=== PATIENT | female | born 1950 | race Caucasian/White ===

== ENCOUNTER → 2017-05-17 | Outpatient (CLI) | payer OTHER, MEDICARE | LOC: BMCIMAGING 07:31 | PROVIDERS: ATTEND Internal Medicine | DX: Z12.31 Encounter for screening mammogram for malignant neoplasm of breast (principal) | CPT/HCPCS: G0202 ==

== ENCOUNTER → 2017-07-13 | Outpatient (CLI) | payer OTHER, MEDICARE | LOC: CIMAGING 11:45 | PROVIDERS: ATTEND Urology | DX: N30.11 Interstitial cystitis (chronic) with hematuria (principal) | CPT/HCPCS: 76770-PO ==

== ENCOUNTER 2017-09-01 11:59 | Emergency (ER) | payer OTHER, MEDICARE ==
--- NOTE | 2017-09-01 12:23 | CPEKG ---
Heart Rate: 99 RR Interval: 606 P-R Interval: 136 QRSD Interval: 134 QT Interval: 368 QTC Interval: 473 P Weir: 67 QRS Weir: -76 T Wave Weir: 59 EKG Severity - ABNORMAL ECG - EKG Impression: SINUS RHYTHM alternating with atrial tachycardia EKG Impression: RBBB AND LAFB EKG Impression: PROBABLE LEFT VENTRICULAR HYPERTROPHY Electronically Signed By: Shona Wilson 01-Sep-2017 20:56:32
[2017-09-01 13:01] LABS: ABSOLUTE IMMATURE GRANULOCYTES 0.08 10^3/uL (0.00-0.10); ADD DIFF? NO; ADD MORPH? NO; ADD SCAN? NO; ATYPICAL LYMPHOCYTE FLAG 0 (0-99); FRAGMENT RBC FLAG 0 (0-99); HEMATOCRIT 43.9 % (38.0-47.0); HEMOGLOBIN 14.8 g/dL (12.6-16.3); LEFT SHIFT FLG 0 (0-99); LIPEMIA HEMOLYSIS FLAG 80 (0-99); MEAN CELL HEMOGLOBIN 32.3 pg (27.9-34.1); MEAN CELL HEMOGLOBIN CONCENTR. 33.7 g/dL (32.4-36.7); MEAN CELL VOLUME 95.9 fL (81.5-99.8); MEAN PLATELET VOLUME 10.2 fL (8.7-11.7); PLATELET CLUMPS FLAG 0 (0-99); PLATELET COUNT 222 10^3/uL (150-400); RED BLOOD CELL COUNT 4.58 10^6/uL (4.18-5.33); RED CELL DISTRIBUTION WIDTH 13.8 % (11.5-15.2)
--- NOTE | 2017-09-01 13:06 | EDPHY ---
H & P Time Seen by Provider: 09/01/17 12:55 HPI/ROS: CHIEF COMPLAINT: Rapid heart rate HISTORY OF PRESENT ILLNESS: The patient is a 66 y/o female with a history of hypothyroidism and depression presents with rapid heart rate. Over the past several months she has been more easily fatigued than normal. Today, while at a routine appointment with Dr. Gallagher, third miller, she had an elevated heart rate. Dr. Gallagher's staff sent her to her primary care provider, Dr. Burns. Dr. Burns noticed the elevated heart rate on a 12 lead EKG. She advised the patient to present to the ED. She denies shortness of breath, chest pain, or other associated symptoms. Her thyroid levels were evaluated recently and were normal. She has been taking Latuda for 6 months to a year and denies any recent changes in medication. REVIEW OF SYSTEMS: Constitutional: No fever, no chills Eyes: No visual changes ENT: No sore throat Respiratory: No cough, no shortness of breath Cardiac: No chest pain Gastrointestinal: no vomiting, no abdominal pain Genitourinary: no dysuria Musculoskeletal: No leg pain or swelling Skin: No rash Neurological: No headache,no weakness Psychiatric: No depression Past Medical/Surgical History: Hypothyroidism, depression Social History: at bedside, retired, lives in [place] Smoking Status: Never smoked Physical Exam: General Appearance: Alert, no distress Eyes: Pupils equal and round, no conjunctival pallor or injection ENT, Mouth: Mucous membranes moist Neck: Normal inspection Respiratory: Lungs are clear to auscultation Cardiovascular: Rate and rhythm fluctuating from 90 bpm to 140 bpm with some possible atrial flutter, no murmur Gastrointestinal: Abdomen is soft and non- tender Neurological: A&O, nonfocal, normal gait Skin: Warm and dry, no rash Extremities: Nontender, no pedal edema Psychiatric: Mood and affect normal Constitutional: Initial Vital Signs Temperature (C) 36.9 C 09/01/17 12:05 Heart Rate 94 09/01/17 12:05 Respiratory Rate 17 09/01/17 12:05 Blood Pressure 139/94 H 09/01/17 12:05 O2 Sat (%) 98 09/01/17 12:05 O2 Delivery Mode Room Air Allergies/Adverse Reactions: adhesive Allergy (Verified 09/01/17 12:00) cephalexin monohydrate [From Keflex] Allergy (Verified 09/01/17 12:00) ciprofloxacin [From Cipro] Allergy (Verified 09/01/17 12:00) ciprofloxacin HCl [From Cipro] Allergy (Verified 09/01/17 12:00) erythromycin lactobionate [From Erythrocin] Allergy (Verified 09/01/17 12:00) lanolin Allergy (Verified 09/01/17 12:00) levofloxacin [From Levaquin] Allergy (Verified 09/01/17 12:00) Penicillins Allergy (Verified 09/01/17 12:00) Sulfa (Sulfonamide Antibiotics) Allergy (Verified 09/01/17 12:00) tetanus immune globulin Allergy (Verified 09/01/17 12:00) Home Medications: Medication Instructions Recorded Aspirin 81mg (*) 09/01/17 Diltiazem HCl [Diltiazem ER] 120 mg PO DAILY #30 cap.er.deg 09/01/17 Divalproex 09/01/17 Estrace 09/01/17 Latuda 09/01/17 Levothyroxine 09/01/17 Losartan Potassium 09/01/17 Metformin HCl 09/01/17 Methylphenidate 09/01/17 Nitrofurantoin 09/01/17 SIMVASTATIN 09/01/17 buPROPion 09/01/17 Medical Decision Making - Diagnostics EKG Interpretation: EKG interpreted by me reveals normal sinus rhythm, rate 80, right bundle branch block, run of atrial tachycardia, rate 120 Imaging Results: Imaging Impressions Chest X-Ray 09/01/17 13:02 Impression: Clear lungs. No edema or acute process. Study: X-ray of the chest Indication: Arrhythmia, tachycardia Results: X-ray of the chest was obtained. The results of the study are: negative for acute processes The study was read by the radiologist, Dr. Folwers. I viewed the images myself on the PACS system. ED Course/Re-evaluation: This patient presents with paroxysmal tachycardia, most likely atrial tachycardia versus atrial flutter. She is asymptomatic and blood pressure is normal. Cardiology consulted. 1348: I spoke with Imani Steele from [facility]. She will consult on this patient. 1412: Cardiology evaluated the patient and decided to decrease the losartan by half to 12.5 mg and begin diltiazem at 120 mg daily. She should follow up with them for further evaluation of the etiology of her arrhythmia. Plan for ECHO/ TMT. Follow-up instructions and return precautions given. Patient agrees to this course of action. Differential Diagnosis: Differential diagnosis includes though it is not limited to pneumonia, pneumothorax, pulmonary embolism, aortic dissection, pericarditis, acute coronary syndrome. - Data Points Laboratory Results: Laboratory Results 09/01/17 12:50 09/01/17 12:50 09/01/17 09/01/17 12:50 12:50 WBC 7.72 10^3/uL 10^3/uL (3.80-9.50) RBC 4.58 10^6/uL 10^6/uL (4.18-5.33) Hgb 14.8 g/dL g/dL (12.6-16.3) Hct 43.9 % % (38.0-47.0) MCV 95.9 fL fL (81.5-99.8) MCH 32.3 pg pg (27.9-34.1) MCHC 33.7 g/dL g/dL (32.4-36.7) RDW 13.8 % % (11.5-15.2) Plt Count 222 10^3/uL 10^3/uL (150-400) MPV 10.2 fL fL (8.7-11.7) Neut % (Auto) 46.8 % % (39.3-74.2) Lymph % (Auto) 43.0 % % (15.0-45.0) [place] % (Auto) 7.8 % % (4.5-13.0) Eos % (Auto) 0.9 % % (0.6-7.6) Baso % (Auto) 0.5 % % (0.3-1.7) Nucleat RBC Rel Count 0.0 % % (0.0-0.2) Absolute Neuts (auto) 3.61 10^3/uL 10^3/uL (1.70-6.50) Absolute Lymphs (auto) 3.32 10^3/uL H 10^3/uL (1.00-3.00) Absolute Monos (auto) 0.60 10^3/uL 10^3/uL (0.30-0.80) Absolute Eos (auto) 0.07 10^3/uL 10^3/uL (0.03-0.40) Absolute Basos (auto) 0.04 10^3/uL 10^3/uL (0.02-0.10) Absolute Nucleated RBC 0.00 10^3/uL 10^3/uL (0-0.01) Immature Gran % 1.0 % % (0.0-1.1) Immature Gran # 0.08 10^3/uL 10^3/uL (0.00-0.10) Sodium 142 mEq/L mEq/L (134-144) Potassium 5.4 mEq/L H mEq/L (3.5-5.2) Chloride 105 mEq/L mEq/L (97-110) Carbon Dioxide 21 mEq/l L mEq/l (22-31) Anion Gap 16 mEq/L mEq/L (8-16) BUN 17 mg/dL mg/dL (7-23) Creatinine 0.9 mg/dL mg/dL (0.6-1.0) Estimated GFR > 60 Glucose 86 mg/dL mg/dL (70-100) Calcium 9.9 mg/dL mg/dL (8.5-10.4) Troponin I < 0.012 ng/mL ng/mL (0.000-0.034) TSH 2.650 uIU/mL uIU/mL (0.465-4.680) Medications Given: Discontinued Medications Sodium Chloride (Ns) 500 mls @ 1,000 mls/hr IV EDNOW ONE PRN Reason: Protocol Stop: 09/01/17 13:46 Last Admin: 09/01/17 14:00 Dose: 500 mls Departure - Departure Disposition: Home, Routine, Self-Care Clinical Impression: Atrial tachycardia Condition: Good Instructions: Atrial Tachycardia (ED) Additional Instructions: 1. Decrease Losartan by half (to 12.5mg daily). Start taking diltiazem as directed. 2. Follow up with Dr. Marshall at [facility] in 1-3 days. 3. Return to the ED for chest pain, shortness of breath, or other worsening of condition. Referrals: Ashley Burns MD [Primary Care Provider] - As per Instructions Susannah Marshall MD [Medical Doctor] - As per Instructions Prescriptions: Diltiazem HCl [Diltiazem ER] 120 mg PO DAILY #30 cap.er.deg Report Scribed for: Shona Wilson Report Scribed by: Neli Stevenson Date of Report: 09/01/17 Time of Report: 13:00 Physician Review and Approval Statement: 09/01/17 13:00 Portions of this note were transcribed by a biomedical equipment specialist. I personally performed a history, physical exam, medical decision making, and confirmed accuracy of information the transcribed note.
[2017-09-01 13:10] LABS: ANION GAP 16 mEq/L (8-16); CALCIUM 9.9 mg/dL (8.5-10.4); CARBON DIOXIDE 21 mEq/l (22-31); CHLORIDE 105 mEq/L (97-110); CREATININE 0.9 mg/dL (0.6-1.0); GLOMERULAR FILTRATION RATE > 60; GLUCOSE 86 mg/dL (70-100); POTASSIUM 5.4 mEq/L (3.5-5.2); SODIUM 142 mEq/L (134-144)
[2017-09-01] MEDS ORDERED: NS 500 ML IV ONE (13:17)
[2017-09-01 13:21] LABS: TROPONIN I < 0.012 ng/mL (0.000-0.034)
[2017-09-01 15:37] VITALS: BP 116/64; PULSE 87; RESP 20; TEMP 97.9; O2SAT 93
--- NOTE | 2017-09-02 01:33 | GCON ---
[f rep st] CONSULTATION CARDIAC CONSULTATION DATE OF CONSULTATION: 09/01/2017 CHIEF COMPLAINT: Fatigue. HISTORY OF PRESENT ILLNESS: The patient is a 66-year-old female with multiple medical problems, who presented to Dr. Zina Gallagher' office today for routine followup visit and was found to be tachycard ic. She was then sent to Dr. Ashley Burns's office, at which time an EKG was done showing tachycar andrew with a heart rate of 120 to 130 beats per minute. The patient was then referred to the emergency room and has been monitored on telemetry. She has had intermittent runs of atrial tachycardia with rates as high as 140 to 150 beats per minute. She is asymptomatic with the tachycardia. She has mul tiple medical illnesses, including lupus obstructive sleep apnea, hypertension, and ongoing depressio n. She has complained of fatigue over the last 6 to 12 months but her medical regimen has been adjus joseph frequently over that time period. She denies any exertional chest discomfort or shortness of remi ath. On occasion she will notice a palpitation in her neck where she feels like her heart rate incre ases, but this is not associated with any other symptoms and is typically fleeting. PAST MEDICAL HISTORY: Lupus, chronic bladder infections, depression, hypertension, diabetes, obstruc tive sleep apnea on CPAP. FAMILY HISTORY: She is adopted but recently was in contact with her mother who mentioned that her meier lf brother of a cardiac event at the age of 46. SOCIAL HISTORY: She denies any tobacco use. She does have chocolate occasionally. She denies any c affeine use. She is currently accompanied by her . REVIEW OF SYSTEMS: Negative except for what is stated in the H and P. PHYSICAL EXAMINATION: GENERAL: Patient appears in no acute distress. VITALS: Blood pressure 139/9 4, heart rate 94, respirations 17, oxygen saturation 98% on room air, afebrile. NECK: No carotid br uits or JVD present. LUNGS: Clear to auscultation. No wheezes, rhonchi, or crackles auscultated. CARDIAC: Regular rate and rhythm without any significant murmurs, rubs, or gallops appreciated. ABD OMEN: Soft, nontender, nondistended. EXTREMITIES: Palpable pulses bilaterally without any evidence of edema. NEUROLOGIC: Nonfocal. PSYCHIATRIC: Mood and affect appropriate. SKIN: No obvious laura hes or ecchymosis identified. LABORATORY: CBC within normal limits. Sodium 142, potassium 5.4, BUN 17, creatinine 0.9, TSH 2.65, troponin negative x1. DIAGNOSTIC STUDIES: Chest x-ray negative for acute cardiopulmonary disease. EKG shows normal sinus rhythm with intermittent atrial tachycardia at a rate of 110. She also has evidence of a right bundl e branch block and left anterior fascicular block. She was monitored on telemetry and is having freq uent runs of atrial tachycardia. ASSESSMENT: The patient is a 66-year-old female who presents to the emergency room with intermittent atrial tachycardia. PLAN: The patient is having intermittent episodes of atrial tachycardia with rates of 140 to 150 chasidy ts per minute. She is asymptomatic with the arrhythmia. She has noted fatigue over the last 6 to 12 months which could be related to her arrhythmia, but she also has multiple other reasons to be fatig ued. We will plan to rate control her with diltiazem 120 mg daily and then check a Holter monitor in 1 week. She will also have an echocardiogram in 1 to 2 weeks to ensure she has a structurally shankar l heart. I have decreased her losartan to reduce her risk of hypotension. She will plan to follow u p in our office post testing. /[id number]/MODL
== END 2017-09-01 15:37 | disposition home or self-care (01) ==
DX: I47.1 Supraventricular tachycardia (principal); E86.9 Volume depletion, unspecified; Z79.82 Long term (current) use of aspirin

== ENCOUNTER → 2017-09-16 | Outpatient (CLI) | payer OTHER, MEDICARE | LOC: BHLMT 11:00 | PROVIDERS: ATTEND Internal Medicine Cardiovascular Disease | DX: R00.0 Tachycardia, unspecified (principal) | CPT/HCPCS: 93225-PO; 93226-PO ==

== ENCOUNTER → 2017-09-20 | Outpatient (CLI) | payer OTHER, MEDICARE | LOC: BHFA 13:15 | PROVIDERS: ATTEND Internal Medicine Cardiovascular Disease | DX: I47.1 Supraventricular tachycardia (principal) ==

== ENCOUNTER → 2017-10-14 | Outpatient (CLI) | payer OTHER, MEDICARE | LOC: BMCIMAGING 09:26 | PROVIDERS: ATTEND Internal Medicine | DX: Z13.820 Encounter for screening for osteoporosis (principal); M85.89 Other specified disorders of bone density and structure, multiple sites ==

== ENCOUNTER 2017-10-20 08:52 | Inpatient (IN) | payer OTHER, MEDICARE ==
--- NOTE | 2017-10-20 13:20 | CPEKG ---
Heart Rate: 84 RR Interval: 714 P-R Interval: 124 QRSD Interval: 96 QT Interval: 400 QTC Interval: 473 P [place]: 60 QRS [place]: -42 T Wave [place]: 52 EKG Severity - BORDERLINE ECG - EKG Impression: SINUS RHYTHM EKG Impression: LEFT AXIS DEVIATION EKG Impression: BORDERLINE T ABNORMALITIES, ANTERIOR LEADS EKG Impression: PRIOR ECG WITH RBBB PATTERN AND SALVOS OF ATRIAL TACHYCARDIA (01-SEP-17) Electronically Signed By: Sebas Abbott 24-Oct-2017 10:50:05
[2017-10-20] MEDS ORDERED: ACETAMINOPHEN 325 MG TAB PO PRN (13:42)
[2017-10-20 14:48] LABS: PLATELET COUNT 215 10^3/uL (150-400)
--- NOTE | 2017-10-20 14:53 | ASMTCASEMG ---
Living Arrangements What is your living Answers: With Spouse arrangement? Who do you live with? Type Of Residence What kind of residence do Answers: House you live in? Discharge Plan Comments Coordination Status Comments Notes: Pt is a 66 y/o female admitted for sotalol loading. Pt will most likely d/c independent when medically stable. No therapies ordered at this time. CM available for changes. Plan: Independent Date Signed: 10/20/2017 02:53 PM Electronically Signed By:CEASAR Forde
[2017-10-20 15:00] LABS: INR 0.91 (0.83-1.16); PROTIME(PATIENT) 12.5 SEC (12.0-15.0)
--- NOTE | 2017-10-20 15:30 | PDCARPN ---
Cardiology Progress Note Chief Complaint: Patient reports ongoing fatigue symptoms.. Assessment/Plan: Assessment: Please see Dr. Neil's this office note dated 10/13/2017 for official Cardiology history and physical. 66-year-old female with significant past history diabetes type 2, hypothyroidism (TSH 2.650 on 09/01/2017), depression, hypertension, KRISTI, hyperlipidemia,hypogammaglobulinemia, chronic urinary tract infection and Atrial flutter. Recent emergency department visit for elevated heart rate, tachycardia , noticed during physical examination. Initially thought of a SVT, but appears to be more of atrial tachycardia. Was started on cartia, and sent home. In our office, she did undergo echocardiogram, noting normal LV size, no LVH, normal LV global systolic function, EF was estimated at 58% , others paradoxical septal most suggesting of a bundle branch block. Grade 1 diastolic dysfunction, normal RV size in , normal RV function , LA and RA are both normal size, RVSP is 25 mm Hg. No significant valvular abnormalities. Patient was seen by Dr. Neil in our office , discuss possible possibility of ablation versus medical therapy. Per patient's request, she would like to attempt to start her on sotalol. The patient reports to me today that she has stopped her carrtia yesterday as requested. She denies of any chest pain or pressure. Reports no significant shortness of breath. She did have a brief run of PSVT on arrival that lasted approximately 30 seconds to a minute , she was asymptomatic. Heart rates did increase up to 150 BPM. She reports she has been in her normal state health. Denies of any chest pressure or pain. Reports no lightheadedness, near-syncope , or syncopal events. Electrocardiogram done on admission showing sinus rhythm , left axis deviation, nonspecific T-wave abnormalities in anterior leads. QTC 473 milliseconds. Plan: 1. PSVT: Appears to have episodes of atrial tachycardia off of previous electrocardiograms. Patient is asymptomatic. QTC within normal limits. Normal electrolyte and renal function. We will plan on starting her on sotalol loading at 120 mg p.o. twice daily. For the 1st 4 doses, due to the potential adverse reactions of this medication, she will get a 2 hour post dosing 12 lead electrocardiogram. She will also remain on continuous cardiac monitoring for the 1st 4 doses. Continue on home dose of aspirin. 2. Hypertension: Blood pressure within normal limits. Continue on home dose of losartan. 3. Hypothyroidism: Most recent TSH within normal limits, continue on home dose of Synthroid. 4. Type 2 diabetes: Blood sugar within normal limits. Continue on home dose of metformin. 5. History of depression: Continue on current home medications of Wellbutrin, Latuda, depakote. 6. Hyperlipidemia: Continue on on statin therapy. 7. Chronic UTI: Continue on home dose of nitrofurantoin 8. KRISTI: Continues home CPAP 8. Code status: Patient is a full code. 9. DVT prophylaxis: Patient is mobile. Not bed bound. Ramin abraham ordered. Encouraged ambulation. 10/20/17 15:28 Subjective: Patient denies of any chest pressure or pain. Reports no palpitations. Denies of any lightheadedness, orthopnea, PND edema, near-syncope, or syncopal events. Reviewed/Discussed With: other (Dr Neil) Objective: Intake/Output (24 Hrs) 10/19/17 10/20/17 10/21/17 05:59 05:59 05:59 Other: Weight 83.1 kg Result Diagrams: 10/20/17 14:40 10/20/17 14:40 - Physical Exam Constitutional: healthy appearing, no apparent distress Ears, Nose, Mouth, Throat: moist mucous membranes Cardiovascular: regular rate and rhythm, no murmurs, no rubs, pulses symmetric bilat, No jugular vein distention Peripheral Pulses: 1+: dorsalis-pedis (R), dorsalis-pedis (L), 2+: carotid (R), carotid (L) Respiratory: clear to auscultate bilat, no crackles, no wheezes Gastrointestinal: normoactive bowel sounds Skin: no rashes, warm, no edema Neurologic: AAOx3 Psychiatric: cooperative, interactive, following commands ICD10 Worksheet Patient Problems: Problems Problem Status Onset PSVT (paroxysmal supraventricular tachycardia) Acute
[2017-10-20] MEDS: DIVALPROEX NA 500 MG TAB PO SCH (16:49)
[2017-10-20] MEDS: PENTOSAN POLYSULFATE SODIUM 200 MG PO SCH (16:50)
[2017-10-20] MEDS: LURASIDONE HCL 40 MG TAB PO SCH (17:47)
[2017-10-20] MEDS: metFORMIN HCL 500 MG TAB PO SCH (17:48)
[2017-10-20] MEDS: NITROFURANTOIN MACROBID 100 MG CAP PO SCH (20:19)
[2017-10-20] MEDS: SOTALOL HCL 80 MG TAB PO SCH (20:19)
[2017-10-20] MEDS ORDERED: ESTRADIOL 42.5 GM CRTUBE VG SCH (21:00)
[2017-10-20] MEDS ORDERED: LURASIDONE HCL 20 MG TAB PO SCH (21:00)
--- NOTE | 2017-10-20 22:26 | CPEKG ---
Heart Rate: 68 RR Interval: 882 P-R Interval: 156 QRSD Interval: 94 QT Interval: 436 QTC Interval: 464 P [place]: 46 QRS [place]: -42 T Wave [place]: -37 EKG Severity - ABNORMAL ECG - EKG Impression: SINUS RHYTHM EKG Impression: LEFT AXIS DEVIATION EKG Impression: NONSPECIFIC T ABNORMALITIES, DIFFUSE LEADS Electronically Signed By: Sebas Abbott 24-Oct-2017 10:50:15
[2017-10-21] MEDS: buPROPion XL 150 MG TAB PO SCH (04:04)
[2017-10-21] MEDS: DIVALPROEX NA 500 MG TAB PO SCH ×4 (04:04→17:43)
[2017-10-21] MEDS: LEVOTHYROXINE 75 MCG TAB PO SCH (04:04)
[2017-10-21 05:01] LABS: INR 0.97 (0.83-1.16); PROTIME(PATIENT) 13.1 SEC (12.0-15.0)
[2017-10-21] MEDS ORDERED: NON-FORMULARY NEW DRUG (Simvastatin [Zocor] 20 MG) PO SCH (07:00)
[2017-10-21] MEDS: LOSARTAN POTASSIUM 25 MG TAB PO SCH (07:53)
[2017-10-21] MEDS: ATORVASTATIN CALCIUM 10 MG TAB PO SCH (07:53)
[2017-10-21] MEDS: ASPIRIN 81 MG CHEWABLE TAB PO SCH (07:53)
[2017-10-21] MEDS: metFORMIN HCL 500 MG TAB PO SCH ×2 (07:53→17:43)
[2017-10-21] MEDS: PENTOSAN POLYSULFATE SODIUM 200 MG PO SCH ×2 (07:55→17:45)
[2017-10-21] MEDS: SOTALOL HCL 80 MG TAB PO SCH ×2 (08:30→20:58)
--- NOTE | 2017-10-21 09:23 | PDCARPN ---
Cardiology Progress Note Chief Complaint: Patient reports she would like to go home as soon as possible. Assessment/Plan: Assessment: 66-year-old female with significant past history diabetes type 2, hypothyroidism (TSH 2.650 on 09/01/2017), depression, hypertension, KRISTI, hyperlipidemia,hypogammaglobulinemia, chronic urinary tract infection and Atrial flutter. Recent emergency department visit for elevated heart rate, tachycardia , noticed during physical examination. Initially thought of a SVT, but appears to be more of atrial tachycardia. Was started on cartia, and sent home. In our office, she did undergo echocardiogram, noting normal LV size, no LVH, normal LV global systolic function, EF was estimated at 58% , others paradoxical septal most suggesting of a bundle branch block. Grade 1 diastolic dysfunction, normal RV size in , normal RV function , LA and RA are both normal size, RVSP is 25 mm Hg. No significant valvular abnormalities. Patient was seen by Dr. Neil in our office , discuss possible possibility of ablation versus medical therapy. Per patient's request, she would like to attempt to start her on sotalol. Today, Patient reports no significant palpitations. Continuous cardiac monitors did show brief episodes of atrial tachycardia. She denies of any lightheadedness, shortness of breath, chest pressure. 12 lead electrocardiogram done last evening, 2 hr post dosing shows sinus rhythm, left axis deviation, nonspecific T-wave abnormalities in diffuse leads. QTC was measured at 464. Today's laboratory study show potassium of 4.6, magnesium 2 Plan: 1. PSVT: Less breakthrough episodes since starting 1st dose of sotalol last evening. Continue on 120 mg p.o. twice daily. QTC within normal limits. Continue on home dose of aspirin. 2. Hypertension: Blood pressure within normal limits. Continue on home dose of losartan. 3. Hypothyroidism: Most recent TSH within normal limits, continue on home dose of Synthroid. 4. Type 2 diabetes: Blood sugar within normal limits. Continue on home dose of metformin. 5. History of depression: Continue on current home medications of Wellbutrin, Latuda, depakote. Who noted 6. Hyperlipidemia: Continue on on statin therapy. 7. Chronic UTI: Continue on home dose of nitrofurantoin 8. KRISTI: Continues home CPAP 8. Code status: Patient is a full code. 9. DVT prophylaxis: Patient is mobile. Not bed bound. Ramin hose ordered. Encouraged ambulation. Due to patient needing to be on continuous campus monitor for 1st 4 doses of sotalol, patient will plan on being here greater than 2 midnight stay. 10/21/17 09:14 Subjective: Patient denies of any chest pressure or pain. Denies of any lightheadedness, palpitations, she shortness of breath, orthopnea, PND. Reviewed/Discussed With: other (Dr Neil) Objective: Vital Signs (8 Hrs) Temp Pulse Resp BP Pulse Ox 10/21/17 08:30 83 122/82 H 10/21/17 07:20 36.7 C 71 14 106/63 95 10/21/17 04:08 91 18 111/66 94 Intake/Output (24 Hrs) 10/20/17 10/21/17 10/22/17 05:59 05:59 05:59 Intake Total 640 Balance 640 Intake: Oral (ml) 640 Other: Weight 83.1 kg Intake Quantity Yes Sufficient Number of Voids Incontinence 1 Toilet 2 Number of Stools Toilet 3 Result Diagrams: 10/20/17 14:40 10/21/17 04:23 - Physical Exam Constitutional: WDWN, healthy appearing Ears, Nose, Mouth, Throat: moist mucous membranes Cardiovascular: regular rate and rhythm, no rubs, no gallops, pulses symmetric bilat, No jugular vein distention Peripheral Pulses: 1+: dorsalis-pedis (R), dorsalis-pedis (L), 2+: carotid (R), carotid (L) Respiratory: clear to auscultate bilat, no crackles, no wheezes Gastrointestinal: normoactive bowel sounds Skin: no edema Neurologic: AAOx3 Psychiatric: cooperative, interactive, following commands ICD10 Worksheet Patient Problems: Problems Problem Status Onset PSVT (paroxysmal supraventricular tachycardia) Acute
--- NOTE | 2017-10-21 10:46 | CPEKG ---
Heart Rate: 91 RR Interval: 659 P-R Interval: 132 QRSD Interval: 96 QT Interval: 376 QTC Interval: 463 P [place]: 52 QRS [place]: -46 T Wave [place]: -44 EKG Severity - ABNORMAL ECG - EKG Impression: SINUS RHYTHM WITH SINUS VERSUS ATRIAL TACHYCARDIA EKG Impression: LEFT ANTERIOR FASCICULAR BLOCK EKG Impression: NONSPECIFIC T ABNORMALITIES, DIFFUSE LEADS EKG Impression: RBBB PATTERN Electronically Signed By: Sebas Abbott 24-Oct-2017 10:51:26
[2017-10-21] MEDS: LURASIDONE HCL 40 MG TAB PO SCH (17:43)
[2017-10-21] MEDS: NITROFURANTOIN MACROBID 100 MG CAP PO SCH (20:59)
--- NOTE | 2017-10-22 00:02 | CPEKG ---
Heart Rate: 64 RR Interval: 938 P-R Interval: 156 QRSD Interval: 90 QT Interval: 444 QTC Interval: 458 P [place]: 47 QRS [place]: -39 T Wave [place]: -51 EKG Severity - ABNORMAL ECG - EKG Impression: SINUS RHYTHM EKG Impression: LEFT AXIS DEVIATION EKG Impression: NONSPECIFIC T ABNORMALITIES, DIFFUSE LEADS EKG Impression: RBBB PATTERN ABSENT IN THIS ECG Electronically Signed By: Sebas Abbott 24-Oct-2017 10:51:45
[2017-10-22] MEDS: LEVOTHYROXINE 75 MCG TAB PO SCH (05:45)
[2017-10-22] MEDS: buPROPion XL 150 MG TAB PO SCH (05:46)
[2017-10-22] MEDS: DIVALPROEX NA 500 MG TAB PO SCH ×3 (05:46→12:28)
[2017-10-22 07:08] VITALS: BP 124/64; RESP 18; TEMP 98.1; O2SAT 95
[2017-10-22] MEDS: LOSARTAN POTASSIUM 25 MG TAB PO SCH (09:06)
[2017-10-22] MEDS: SOTALOL HCL 80 MG TAB PO SCH (09:06)
[2017-10-22] MEDS: ASPIRIN 81 MG CHEWABLE TAB PO SCH (09:07)
[2017-10-22] MEDS: metFORMIN HCL 500 MG TAB PO SCH (09:08)
[2017-10-22] MEDS: PENTOSAN POLYSULFATE SODIUM 200 MG PO SCH (09:08)
[2017-10-22] MEDS: ATORVASTATIN CALCIUM 10 MG TAB PO SCH (09:08)
[2017-10-22 09:10] VITALS: PULSE 97
--- NOTE | 2017-10-22 11:19 | CPEKG ---
Heart Rate: 86 RR Interval: 698 P-R Interval: 124 QRSD Interval: 100 QT Interval: 376 QTC Interval: 450 P [place]: 53 QRS [place]: -46 T Wave [place]: -73 EKG Severity - ABNORMAL ECG - EKG Impression: SINUS RHYTHM EKG Impression: PAIRED VENTRICULAR PREMATURE COMPLEXES EKG Impression: LAD, CONSIDER LEFT ANTERIOR FASCICULAR BLOCK EKG Impression: NONSPECIFIC T ABNORMALITIES, DIFFUSE LEADS EKG Impression: INCOMPLETE RBBB PATTERN Electronically Signed By: Sebas Abbott 24-Oct-2017 10:52:15
--- NOTE | 2017-10-22 14:31 | ASDISCHSUM ---
Discharge Information Plan Status:Home with No Needs Medically Cleared to Leave:10/21/2017 Discharge Date:10/22/2017 12:57 PM CM D/C Disposition: ADT D/C Disposition:Home, Routine, Self-Care Projected Discharge Date:10/22/2017 12:00 AM Transportation at D/C: Discharge Delay Reason: Follow-Up Date:10/22/2017 12:00 AM Discharge Slot: Final Diagnosis: Placement Information Patient Contact Information Contact Name:JUANA Relationship: Address:[address] [place] Alternate Phone: [facility]/Zip Code:[place] [address] Email: Financial Information Financial Class: Primary Plan Desc:MEDICARE INPATIENT Primary Plan Number:[id number] Secondary Plan Desc:FRANCISCOP/MDR SUPPLEMENT Secondary Plan Number:[id number] Assessment Information [facility] Initial CM Assessment Living Arrangements What is your living Answers: With Spouse arrangement? Who do you live with? Type Of Residence What kind of residence do Answers: House you live in? Discharge Plan Comments Coordination Status Comments Notes: Pt is a 66 y/o female admitted for sotalol loading. Pt will most likely d/c independent when medically stable. No therapies ordered at this time. CM available for changes. Plan: Independent Date Signed: 10/20/2017 02:53 PM Electronically Signed By:CEASAR Forde Intervention Information Intervention Type:*Incorrect Registration Date of Service:10/20/2017 02:32 PM Patient Type:Observation Staff Member:KAYCEE Magallon Courtney Hours: Discipline: Severity: Comment:
--- NOTE | 2017-10-22 18:07 | GDS ---
[f rep st] DISCHARGE SUMMARY ADMISSION DIAGNOSES: 1. Paroxysmal supraventricular tachycardia that appears to be potentially atrial tachycardia. 2. Diabetes type 2. 3. Hypothyroidism. 4. Depression. 5. Hypertension. 6. Obstructive sleep apnea. 7. Hyperlipidemia. 8. Hypogammaglobulinemia. 9. Chronic urinary tract infection. DISCHARGE DIAGNOSES: 1. Paroxysmal supraventricular tachycardia that appears to be potentially atrial tachycardia. 2. Diabetes type 2. 3. Hypothyroidism. 4. Depression. 5. Hypertension. 6. Obstructive sleep apnea. 7. Hyperlipidemia. 8. Hypogammaglobulinemia. 9. Chronic urinary tract infection. PROCEDURES PERFORMED DURING HOSPITALIZATION: 1. Electrocardiogram. 2. Laboratory studies. BRIEF HISTORY: Please see H and P. The patient is a 66-year-old female, she has had a recent emerge ncy department visit for elevated heart rate, tachycardia, noted during her physical examination. In itially thought SVT but, but appeared to be more atrial tachycardia. She was seen by Dr. Neil, who d iscussed potentials of ablation versus medical therapy. Per patient's request, she requested to star t medical therapy which included being placed on sotalol. She was admitted to the hospital. HOSPITAL COURSE: Patient was admitted to PCU, to be placed on continuous cardiac monitoring. For he r first 4 doses of sotalol, she did have post-dosing electrocardiograms, assuring no prolonged QTc. She has been stable throughout her hospitalization. It has been noted that she has had occasional ep isodes of SVT, especially on her 1st day of admission, which have decreased in frequency since then. She has had no chest pain, shortness of breath, lightheadedness. She has been up and walking in the unit without any difficulties. Her 2-hour post dosing EKGs have all shown QTc within normal limits. No other malignant arrhythmias or pauses have been noted. PHYSICAL EXAMINATION ON DAY OF DISCHARGE: GENERAL APPEARANCE: Medium built, elderly female, she is alert and oriented to person, place, time, situation. Appears to be under no acute distress. CURREN T VITAL SIGNS: 124/64, heart rate is 97 in sinus rhythm on the monitor, respirations 18, saturating 95% on room air. Temperature of 36.7 degrees Celsius. HEENT: Head is normocephalic. Lips and tong ue are pink and moist with no signs of cyanosis. Conjunctivae pink. NECK: Trachea is midline, +2 c arotid pulses bilateral. No auscultated bruits, no jugular vein distention. LUNGS: Clear to auscul tation. No rhonchi, rales or wheezes. No accessory muscle use. No intercostal muscle retraction no joseph. CARDIAC: Regular rate, regular rhythm, S1, S2. No S3, S4, gallops, rubs or murmur noted. ABD OMEN: Soft, nontender, bowel sounds x4 quadrants. No organomegaly. No palpable masses. SKIN: Pin k, warm, dry, no cyanosis, no clubbing, no peripheral edema. VASCULAR: +2 carotids, +2 radials bila teral, +1 posterior tibial pulses bilateral. LABORATORY STUDIES: Laboratory studies drawn today show a sodium of 142, potassium 4.6, chloride 105 , BUN 15, creatinine 0.8, glucose 89, calcium 9.3, magnesium 1.9. STUDIES: Most recent electrocardiogram shows sinus rhythm. Left axis deviation, potentially left an terior fascicular block, nonspecific T-wave abnormalities. QTc was measured at 450 msec. DISCHARGE DISPOSITION: Patient will be discharged home in stable condition. ACTIVITY RESTRICTIONS: She is under no activity restrictions. DISCHARGE MEDICATIONS: Please see discharge medication reconciliation sheet. Note, patient will con tinue all home medications except her Cardizem, which she had been on prior to admission. In replace ment, she has been started on sotalol 120 mg p.o. twice daily. DISCHARGE INSTRUCTIONS: Post sotalol loading/post sotalol discharge instructions went over with the patient. Potential side effects and adverse reactions to medication explained. She verbalized under standing. The patient has a followup appointment next week at our [place] office for repeated elect rocardiogram. Patient will follow up with Dr. Neil in 2 months' time. At the time of discharge, janice oliva verbalizes understanding of all instructions and has no questions or concerns. She has been fallon d that any problems or concerns come up post discharge, she is to call our office or return to the [facility]. Total time spent on discharge: Greater than 30 minutes. /[id number]/MODL
== END 2017-10-22 12:57 | disposition home or self-care (01) | DRG 309 ==
LOC: F2W 12:39 → OBSVTOIN 13:42
PROVIDERS: ADMIT Internal Medicine Cardiovascular Disease; ATTEND Internal Medicine Cardiovascular Disease
DX: I47.1 Supraventricular tachycardia (principal); E11.9 Type 2 diabetes mellitus without complications; G47.33 Obstructive sleep apnea (adult) (pediatric); E03.9 Hypothyroidism, unspecified; D80.1 Nonfamilial hypogammaglobulinemia; E78.5 Hyperlipidemia, unspecified; I10 Essential (primary) hypertension; N39.0 Urinary tract infection, site not specified; F32.9 Major depressive disorder, single episode, unspecified

== ENCOUNTER → 2018-06-23 | Outpatient (CLI) | payer OTHER, MEDICARE | LOC: BMCIMAGING 07:50 | PROVIDERS: ATTEND Allergy & Immunology Allergy | DX: Z12.31 Encounter for screening mammogram for malignant neoplasm of breast (principal); K76.9 Liver disease, unspecified ==

== ENCOUNTER → 2018-07-06 | Outpatient (CLI) | payer OTHER, MEDICARE | LOC: BMCIMAGING 10:50 | PROVIDERS: ATTEND Internal Medicine | DX: R92.8 Other abnormal and inconclusive findings on diagnostic imaging of breast (principal) ==

== ENCOUNTER → 2018-07-07 | Outpatient (CLI) | payer OTHER, MEDICARE | LOC: BMCIMAGING 10:46 | PROVIDERS: ATTEND Internal Medicine | DX: R92.8 Other abnormal and inconclusive findings on diagnostic imaging of breast (principal) ==

== ENCOUNTER → 2018-09-06 | Outpatient (CLI) | payer OTHER, MEDICARE | LOC: BHLMT 09:00 | PROVIDERS: ATTEND Internal Medicine Cardiovascular Disease | DX: I47.1 Supraventricular tachycardia (principal) | CPT/HCPCS: 93225-PO; 93226-PO ==

== ENCOUNTER → 2018-09-22 | Outpatient (CLI) | payer OTHER, MEDICARE | LOC: BMCIMAGING 12:00 | PROVIDERS: ATTEND Allergy & Immunology Allergy | DX: R06.02 Shortness of breath (principal) ==

== ENCOUNTER → 2018-09-23 | Outpatient (CLI) | payer OTHER, MEDICARE | LOC: BHFA 09:00 | PROVIDERS: ATTEND Internal Medicine Cardiovascular Disease | DX: R06.09 Other forms of dyspnea (principal); I47.1 Supraventricular tachycardia; I51.9 Heart disease, unspecified | CPT/HCPCS: 78452; 93017; A9500; J2785 ==

== ENCOUNTER 2018-09-24 03:47 | Emergency (ER) | payer OTHER, MEDICARE ==
[2018-09-24] MEDS ORDERED: NS 1,000 ML IV ONE (04:41)
--- NOTE | 2018-09-24 04:45 | EDPHY ---
H & P Stated Complaint: L SIDE ABD PAIN STARTED MN Time Seen by Provider: 09/24/18 03:53 HPI/ROS: HPI The patient presents with left-sided abdominal pain which awoke her at midnight tonight when she was lying on her right side. She feels that the pain is positional and worse when she lies on her stomach. It is moderate in severity and has been persistent for the last several hours and this is what brings her into the emergency department. She reports that she was diagnosed with cystitis around and she took a course of doxycycline (she has many antibiotic allergies) prescribed by her urologist. As she was completing the course of this antibiotic she developed stomach upset and had diminished appetite and has not been able to eat much. She reports since she has had a 30 lb weight loss and generally is not hungry much of the time. She also is being evaluated for shortness of breath. She was initially diagnosed with an atrial tachycardia. She had a nuclear stress test performed yesterday. She is being followed by [facility].. REVIEW OF SYSTEMS 10 systems were reviewed and negative with the exception of the elements mentioned in the history of present illness. PMHx: Fibromyalgia, frequent urinary tract infections, type 2 diabetes Soc Hx: Here with her PHYSICAL General Appearance: Alert, no distress Eyes: Pupils equal and round no pallor or injection ENT, Mouth: Mucous membranes moist Respiratory: There are no retractions, lungs are clear to auscultation Cardiovascular: Regular rate and rhythm Gastrointestinal: Abdomen is soft and tender in her left upper quadrant, no masses, bowel sounds normal Neurological: A&O, moves all extremities Skin: Warm and dry, no rashes Musculoskeletal: Neck is supple non tender Extremities: symmetrical, full range of motion Psychiatric: Patient is oriented X 3, there is no agitation Source: Patient, Old records Exam Limitations: No limitations - Personal History Current Tetanus Diphtheria and Acellular Pertussis (TDAP): Yes - Medical/Surgical History Hx Asthma: No Hx Chronic Respiratory Disease: No Hx Diabetes: Yes Hx Cardiac Disease: No Hx Renal Disease: No Hx Cirrhosis: No Hx Alcoholism: No Hx HIV/AIDS: No Hx Splenectomy or Spleen Trauma: No Other PMH: Fx right leg April 04, Diabetic, depression bi-polar, fibromylagia, CHEESH-NA, sleep apnea, urinary incontinece, chronic bladder infection - Social History Smoking Status: Never smoked Constitutional: Initial Vital Signs Heart Rate 74 09/24/18 03:57 Respiratory Rate 16 09/24/18 03:57 Blood Pressure 122/72 H 09/24/18 03:57 O2 Sat (%) 97 09/24/18 03:57 O2 Delivery Mode Room Air Allergies/Adverse Reactions: adhesive Allergy (Verified 09/01/17 12:00) cephalexin monohydrate [From Keflex] Allergy (Verified 09/01/17 12:00) ciprofloxacin [From Cipro] Allergy (Verified 09/01/17 12:00) ciprofloxacin HCl [From Cipro] Allergy (Verified 09/01/17 12:00) erythromycin lactobionate [From Erythrocin] Allergy (Verified 09/01/17 12:00) lanolin Allergy (Verified 09/01/17 12:00) levofloxacin [From Levaquin] Allergy (Verified 09/01/17 12:00) Penicillins Allergy (Verified 09/01/17 12:00) Sulfa (Sulfonamide Antibiotics) Allergy (Verified 09/01/17 12:00) tetanus immune globulin Allergy (Verified 09/01/17 12:00) Home Medications: Medication Instructions Recorded Aspirin [Aspirin 81mg (*)] 81 mg PO DAILY@07 09/01/17 Divalproex [Depakote] 500 mg PO QID@04,08,12,16 09/01/17 Levothyroxine [Synthroid 75 mcg 75 mcg PO DAILY@04 09/01/17 (*)] Lurasidone HCl [Latuda] 60 mg PO HS 09/01/17 Methylphenidate HCl [Ritalin 20mg 20 mg PO QID@04,08,12,16 09/01/17 (*)] buPROPion XL [Wellbutrin 150mg XL] 450 mg PO DAILY@04 09/01/17 metFORMIN HCL [Glucophage 500 mg 500 mg PO BIDMEAL 09/01/17 (*)] EPINEPHrine [Epipen 0.3 MG] 0.3 mg IM ONCE PRN 10/20/17 Herbals/Supplements -Info Only 1 ea PO DAILY 10/20/17 Immune Globul G/Gly/Iga Avg 46 10 gm IV Q30D 10/20/17 [Gamunex-C 10 Gram/100 ml Vial] Cephalexin [Keflex (*)] 500 mg PO TID #21 cap 09/24/18 Medical Decision Making - Diagnostics Imaging Results: CT abdomen pelvis without contrast demonstrates possible right-sided pyelonephritis, discussed with Dr. Vieira of Radiology. Imaging: Discussed imaging studies w/ callisthenics instructor Radiologist Differential Diagnosis: 67-year-old female with fibromyalgia, diabetes, history of atrial tachycardia who presents from home with left-sided abdominal pain when she awoke from sleep at midnight. This is in the setting of a 30 lb weight loss over the last 1 month with anorexia. She also is being evaluated for shortness of breath by [facility] and has multiple recent test performed. I was able to review her labs from 2 days ago and it appears that she has a pre renal azotemia which could be related to her anorexia. Plan for IV fluids, basic labs, CT scan of her abdomen pelvis. Differential diagnosis includes pancreatitis, diverticulitis, malignancy. In the emergency department, patient's pain improved. Labs were checked and did reveal signs of urinary tract infection. BUN and creatinine are elevated once again, same is 2 days ago, likely suggesting pre renal azotemia. She was given a L of fluid. CT scan was performed and showed possible right-sided pyelonephritis. This in the setting of the patient's UA suggestive of infection makes me feel inclined to treat though patient's pain is not typical for pyelonephritis. As patient has multiple medication allergies, including penicillin. I will give her a dose of ceftriaxone here as she does not have an allergy to this and I will observe her for any reaction. If she tolerates this, then I will start her on Keflex for UTI. I did explain to her that it is very important that she have her BUN and creatinine rechecked in the next few days. She says that she is able to do this. I have encouraged her to drink plenty of fluids. I would like for her to follow up with her primary care doctor shortly. - Data Points Laboratory Results: Laboratory Results 09/24/18 05:15 09/24/18 05:15 09/24/18 09/24/18 09/24/18 05:15 05:15 04:55 WBC 11.77 10^3/uL H 10^3/uL (3.80-9.50) RBC 3.96 10^6/uL L 10^6/uL (4.18-5.33) Hgb 12.0 g/dL L g/dL (12.6-16.3) Hct 37.1 % L % (38.0-47.0) MCV 93.7 fL fL (81.5-99.8) MCH 30.3 pg pg (27.9-34.1) MCHC 32.3 g/dL L g/dL (32.4-36.7) RDW 13.4 % % (11.5-15.2) Plt Count 282 10^3/uL 10^3/uL (150-400) MPV 9.3 fL fL (8.7-11.7) Neut % (Auto) 65.8 % % (39.3-74.2) Lymph % (Auto) 17.2 % % (15.0-45.0) [place] % (Auto) 14.6 % H % (4.5-13.0) Eos % (Auto) 0.2 % L % (0.6-7.6) Baso % (Auto) 0.3 % % (0.3-1.7) Nucleat RBC Rel Count 0.0 % % (0.0-0.2) Absolute Neuts (auto) 7.74 10^3/uL H 10^3/uL (1.70-6.50) Absolute Lymphs (auto) 2.02 10^3/uL 10^3/uL (1.00-3.00) Absolute Monos (auto) 1.72 10^3/uL H 10^3/uL (0.30-0.80) Absolute Eos (auto) 0.02 10^3/uL L 10^3/uL (0.03-0.40) Absolute Basos (auto) 0.04 10^3/uL 10^3/uL (0.02-0.10) Absolute Nucleated RBC 0.00 10^3/uL 10^3/uL (0-0.01) Immature Gran % 1.9 % H % (0.0-1.1) Immature Gran # 0.22 10^3/uL H 10^3/uL (0.00-0.10) RBC/WBC/PLT Morphology TNP Platelet Estimate TNP Sodium 140 mEq/L mEq/L (135-145) Potassium 4.5 mEq/L mEq/L (3.5-5.2) Chloride 110 mEq/L mEq/L (97-110) Carbon Dioxide 18 mEq/l L mEq/l (22-31) Anion Gap 12 mEq/L mEq/L (6-14) BUN 33 mg/dL H mg/dL (7-23) Creatinine 1.8 mg/dL H mg/dL (0.6-1.0) Estimated GFR 28 Glucose 132 mg/dL H mg/dL (70-100) Calcium 9.0 mg/dL mg/dL (8.5-10.4) Total Bilirubin 0.6 mg/dL mg/dL (0.1-1.4) Conjugated Bilirubin 0.4 mg/dL mg/dL (0.0-0.5) Unconjugated Bilirubin 0.2 mg/dL mg/dL (0.0-1.1) AST 21 IU/L IU/L (14-46) ALT 19 IU/L IU/L (9-52) Alkaline Phosphatase 96 IU/L IU/L (38-126) Total Protein 6.1 g/dL L g/dL (6.3-8.2) Albumin 3.1 g/dL L g/dL (3.5-5.0) Lipase 67 IU/L IU/L (23-300) Urine Color YELLOW Urine Appearance MODERATELY TURBID Urine pH 6.0 (5.0-7.5) Ur Specific [place] 1.009 (1.002-1.030) Urine Protein NEGATIVE (NEGATIVE) Urine Ketones NEGATIVE (NEGATIVE) Urine Blood NEGATIVE (NEGATIVE) Urine Nitrate NEGATIVE (NEGATIVE) Urine Bilirubin NEGATIVE (NEGATIVE) Urine Urobilinogen NEGATIVE EU EU (0.2-1.0) Ur Leukocyte Esterase 3+ H (NEGATIVE) Urine RBC 5-10 /hpf H /hpf (0-3) Urine WBC 50-182 /hpf H /hpf (0-3) Ur Epithelial Cells TRACE /lpf /lpf (NONE-1+) Urine Bacteria 1+ /hpf H /hpf (NONE SEEN) Urine Mucus TRACE /lpf /lpf (NONE-1+) Urine Glucose NEGATIVE (NEGATIVE) Medications Given: Ceftriaxone Sodium/Dextrose (Rocephin 1 Gm (Premix)) 50 mls @ 100 mls/hr IV EDNOW ONE PRN Reason: Protocol Stop: 09/24/18 07:18 Last Admin: 12/22/18 06:56 Dose: 50 mls Discontinued Medications Sodium Chloride (Ns) 1,000 mls @ 0 mls/hr IV EDNOW ONE; Wide Open PRN Reason: Protocol Stop: 09/24/18 04:42 Last Admin: 09/24/18 05:14 Dose: 1,000 mls Departure - Departure Disposition: Home, Routine, Self-Care Clinical Impression: Acute pyelonephritis, Acute renal insufficiency Condition: Good Instructions: Kidney Infection (ED) Additional Instructions: Your testing today shows that you have a right-sided kidney infection. We have sent a urine culture and if you're not on the correct antibiotic, we will call you. Your kidney function also is diminished, this could be related to dehydration. You must have your creatinine read checked in the next few days. You should call your primary care doctor to arrange for this. Return to the emergency department if your worse in any way. Referrals: Ashley Burns MD [Primary Care Provider] - As per Instructions Prescriptions: Cephalexin [Keflex (*)] 500 mg PO TID #21 cap
[2018-09-24 05:28] LABS: PLATELET COUNT 282 10^3/uL (150-400)
[2018-09-24 07:37] VITALS: BP 108/64
== END 2018-09-24 07:50 | disposition home or self-care (01) ==
DX: N12 Tubulo-interstitial nephritis, not specified as acute or chronic (principal); N28.9 Disorder of kidney and ureter, unspecified; E86.9 Volume depletion, unspecified
CPT/HCPCS: 74176; 96361; 96365; 99285; J0696

== ENCOUNTER 2018-09-25 19:50 | Emergency (ER) | payer OTHER, MEDICARE ==
--- NOTE | 2018-09-25 20:00 | EDPHY ---
H & P Time Seen by Provider: 09/25/18 19:59 HPI/ROS: CHIEF COMPLAINT: Right-sided abdominal pain HISTORY OF PRESENT ILLNESS: Patient is a 67-year-old female here with continued right-sided abdominal pain starting Wednesday evening. She states that in the middle of the night Wednesday she started with sharp sided right abdominal pain. She points to the right periumbilical region and flank as source of her pain. She denies any fever chills or dysuria. She is status post hysterectomy , cholecystectomy and appendectomy. She was seen yesterday he for her pain and had complete blood work and CT scan performed. CT scan showed perinephric stranding suggestive of pyelonephritis and urinalysis showed large leukocytes. She was started on Keflex after being given 1 dose of Rocephin. She tolerated this well with no signs of allergic reaction. She was prescribed Keflex originally but then was switched to cefdinir 300 mg twice a day. She has had 2 cefdinir so far. She reports no improvement of her pain. She is trying Tylenol without relief. She also reports that since [place] she has had decreased appetite and unintentional 20 lb weight loss. States she is being treated for a urinary tract infection with doxycycline and near the end of the 10 day course she developed abdominal discomfort has had decreased appetite since. She has no history of cancer has noticed no changes in her stools including no black tarry stools or any change in caliber of her stools. She had a regular bowel movement yesterday and today. REVIEW OF SYSTEMS: Constitutional: No fever, no chills. Eyes: No discharge. ENT: No sore throat. Cardiovascular: No chest pain, no palpitations. Respiratory: No cough, no shortness of breath. Gastrointestinal: + abdominal pain, no vomiting. Genitourinary: No hematuria. Musculoskeletal: No back pain. Skin: No rashes. Neurological: No headache. Smoking Status: Never smoked Physical Exam: General Appearance: Alert and no distress. ENT: normal dentition. No tonsillar exudate or swelling. Eyes: Pupils equal and round no injection. Respiratory: Chest is nontender, lungs are clear to auscultation. Cardiac: regular rate and rhythm. No lower extremity edema Gastrointestinal: Abdomen is soft and tender to the right periumbilical region and mild tenderness the right CVA. No peritoneal signs. no masses, bowel sounds normal. Musculoskeletal: Neck is supple and nontender. Extremities have full range of motion and are nontender without deformity Skin: No rashes or lesions. Neuro: Cranial nerves grossly intact. No nystagmus. Normal [id number] testing. Ambulatory. Constitutional: Initial Vital Signs Temperature (C) 36.3 C 09/25/18 19:54 Heart Rate 71 09/25/18 19:54 Respiratory Rate 18 09/25/18 19:54 Blood Pressure 128/82 H 09/25/18 19:54 O2 Sat (%) 99 09/25/18 19:54 O2 Delivery Mode Room Air Allergies/Adverse Reactions: adhesive Allergy (Verified 09/25/18 19:57) cephalexin monohydrate [From Keflex] Allergy (Verified 09/25/18 19:57) ciprofloxacin [From Cipro] Allergy (Verified 09/25/18 19:57) ciprofloxacin HCl [From Cipro] Allergy (Verified 09/25/18 19:57) erythromycin lactobionate [From Erythrocin] Allergy (Verified 09/25/18 19:57) lanolin Allergy (Verified 09/25/18 19:57) levofloxacin [From Levaquin] Allergy (Verified 09/25/18 19:57) Penicillins Allergy (Verified 09/25/18 19:57) Sulfa (Sulfonamide Antibiotics) Allergy (Verified 09/25/18 19:57) tetanus immune globulin Allergy (Verified 09/25/18 19:57) Home Medications: Medication Instructions Recorded Aspirin [Aspirin 81mg (*)] 81 mg PO DAILY@07 09/01/17 Divalproex [Depakote] 500 mg PO QID@,,,09/01/17 Levothyroxine [Synthroid 75 mcg 75 mcg PO DAILY@09/01/17 (*)] Lurasidone HCl [Latuda] 60 mg PO HS 09/01/17 Methylphenidate HCl [Ritalin 20mg 20 mg PO QID@04,,12,09/01/17 (*)] buPROPion XL [Wellbutrin 150mg XL] 450 mg PO DAILY@09/01/17 metFORMIN HCL [Glucophage 500 mg 500 mg PO BIDMEAL 09/01/17 (*)] EPINEPHrine [Epipen 0.3 MG] 0.3 mg IM ONCE PRN 10/20/17 Herbals/Supplements -Info Only 1 ea PO DAILY 10/20/17 Immune Globul G/Gly/Iga Avg 46 10 gm IV Q30D 10/20/17 [Gamunex-C 10 Gram/100 ml Vial] Cephalexin [Keflex (*)] 500 mg PO TID #21 cap 09/24/18 Tramadol HCl 50 mg PO Q6 PRN #16 tablet 09/25/18 Medical Decision Making ED Course/Re-evaluation: 67-year-old female he developed pain for the last 2 days. She is today and had blood work CT which suggest Tylenol for itis some pain. Is 1 dose of IV Rocephin started on Keflex. Ultimately she switched to cefdinir and has had 2 doses of 300 mg to cefdinir and had no improvement of her pain. She is only taking Tylenol for pain. In the emergency room she had right periumbilical pain and right CVA tenderness exam vital signs is afebrile nontoxic appearing. CBC, CMP and least for repeat which showed no change. She was given 1 L IV fluids and tramadol of 100 for her pain and feels improved. I did offer her admission but she would like to try going home and continue cefdinir twice daily. She agrees to close follow-up with her primary care physician to recheck kidney function. Additionally she agrees to follow up here if she worsens anyway. Differential Diagnosis: Pancreatitis, colitis, nephritis, gastric ulcer, constipation - Data Points Laboratory Results: Laboratory Results 09/25/18 20:40 09/25/18 20:40 09/25/18 09/25/18 20:40 20:40 WBC 11.97 10^3/uL H 10^3/uL (3.80-9.50) RBC 3.53 10^6/uL L 10^6/uL (4.18-5.33) Hgb 11.0 g/dL L g/dL (12.6-16.3) Hct 34.2 % L % (38.0-47.0) MCV 96.9 fL fL (81.5-99.8) MCH 31.2 pg pg (27.9-34.1) MCHC 32.2 g/dL L g/dL (32.4-36.7) RDW 13.5 % % (11.5-15.2) Plt Count 290 10^3/uL 10^3/uL (150-400) MPV 9.2 fL fL (8.7-11.7) Neut % (Auto) 65.4 % % (39.3-74.2) Lymph % (Auto) 20.6 % % (15.0-45.0) [place] % (Auto) 10.9 % % (4.5-13.0) Eos % (Auto) 0.3 % L % (0.6-7.6) Baso % (Auto) 0.4 % % (0.3-1.7) Nucleat RBC Rel Count 0.0 % % (0.0-0.2) Absolute Neuts (auto) 7.83 10^3/uL H 10^3/uL (1.70-6.50) Absolute Lymphs (auto) 2.46 10^3/uL 10^3/uL (1.00-3.00) Absolute Monos (auto) 1.30 10^3/uL H 10^3/uL (0.30-0.80) Absolute Eos (auto) 0.04 10^3/uL 10^3/uL (0.03-0.40) Absolute Basos (auto) 0.05 10^3/uL 10^3/uL (0.02-0.10) Absolute Nucleated RBC 0.00 10^3/uL 10^3/uL (0-0.01) Immature Gran % 2.4 % H % (0.0-1.1) Immature Gran # 0.29 10^3/uL H 10^3/uL (0.00-0.10) Sodium 138 mEq/L mEq/L (135-145) Potassium 4.2 mEq/L mEq/L (3.5-5.2) Chloride 113 mEq/L H mEq/L (97-110) Carbon Dioxide 15 mEq/l L mEq/l (22-31) Anion Gap 10 mEq/L mEq/L (6-14) BUN 33 mg/dL H mg/dL (7-23) Creatinine 1.7 mg/dL H mg/dL (0.6-1.0) Estimated GFR 30 Glucose 108 mg/dL H mg/dL (70-100) Calcium 8.6 mg/dL mg/dL (8.5-10.4) Total Bilirubin 0.5 mg/dL mg/dL (0.1-1.4) Conjugated Bilirubin 0.5 mg/dL mg/dL (0.0-0.5) Unconjugated Bilirubin 0.0 mg/dL mg/dL (0.0-1.1) AST 24 IU/L IU/L (14-46) ALT 20 IU/L IU/L (9-52) Alkaline Phosphatase 84 IU/L IU/L (38-126) Total Protein 6.0 g/dL L g/dL (6.3-8.2) Albumin 2.9 g/dL L g/dL (3.5-5.0) Lipase 71 IU/L IU/L (23-300) Medications Given: Discontinued Medications Sodium Chloride (Ns) 1,000 mls @ 0 mls/hr IV EDNOW ONE; Wide Open PRN Reason: Protocol Stop: 09/25/18 21:12 Last Admin: 09/25/18 21:18 Dose: 1,000 mls Tramadol HCl (Ultram) 50 mg PO ONCE ONE Stop: 09/25/18 21:45 Last Admin: 09/25/18 21:51 Dose: 50 mg Departure - Departure Clinical Impression: Acute pyelonephritis, Abdominal pain Condition: Good Instructions: Kidney Infection (ED) Additional Instructions: Please return to the ER if pain is not improving or worsening or for any other worrisome symptoms. Take tramadol as needed for pain in addition to Tylenol. For pain is improving over the next couple days please sure to follow up with her primary care physician discussion kidney function and for re-evaluation your abdominal pain and kidney infection. Referrals: Ashley Burns MD [Primary Care Provider] - As per Instructions Prescriptions: Tramadol HCl 50 mg PO Q6 PRN #16 tablet PRN Reason: Pain, Breakthrough
[2018-09-25 20:47] LABS: PLATELET COUNT 290 10^3/uL (150-400)
[2018-09-25] MEDS ORDERED: NS 1,000 ML IV ONE (21:11)
[2018-09-25] MEDS ORDERED: traMADol 50 MG TAB PO ONE (21:44)
[2018-09-25 22:30] VITALS: BP 135/83
== END 2018-09-25 22:29 | disposition home or self-care (01) ==
DX: N10 Acute pyelonephritis (principal); E86.9 Volume depletion, unspecified; Z88.2 Allergy status to sulfonamides; Z88.0 Allergy status to penicillin

== ENCOUNTER → 2018-10-06 | Outpatient (CLI) | payer OTHER, MEDICARE | LOC: BHFA 08:30 | PROVIDERS: ATTEND Internal Medicine Cardiovascular Disease | DX: I48.92 Unspecified atrial flutter (principal) ==

== ENCOUNTER 2018-10-14 15:13 | Inpatient (IN) | payer OTHER, MEDICARE ==
--- NOTE | 2018-10-14 16:19 | EDPHY ---
H & P Stated Complaint: from PCP for ARF Time Seen by Provider: 10/14/18 16:01 HPI/ROS: CHIEF COMPLAINT: Elevated creatinine HISTORY OF PRESENT ILLNESS: 67-year-old female presents with an elevated creatinine. 6 weeks ago she was treated with doxycycline for urinary tract infection. After initiation of doxycycline, she developed lack of appetite and nausea. She was subsequently diagnosed with pyelonephritis and the antibiotic was switched to cefdinir. Elevated creatinine noted approximately 1 week ago. Multiple laboratory tests reveal elevated creatinine, most recently yesterday creatinine was 2.0, with a normal potassium. The patient complains of generalized weakness and fatigue. Drinking plenty of fluids, not eating much. 12 lb weight loss in the last month. Also has a one-week history of exertional shortness of breath. Recent stress test and echocardiogram reportedly unremarkable. No cough or fever. REVIEW OF SYSTEMS: complete 10 point ROS reviewed and is negative except for the noted elements in the HPI - Personal History Current Tetanus/Diphtheria Vaccine: Yes Current Tetanus Diphtheria and Acellular Pertussis (TDAP): Yes - Medical/Surgical History Hx Asthma: No Hx Chronic Respiratory Disease: No Hx Diabetes: Yes Hx Cardiac Disease: Yes Hx Renal Disease: No Hx Cirrhosis: No Hx Alcoholism: No Hx HIV/AIDS: No Hx Splenectomy or Spleen Trauma: No Other PMH: Fx right leg April 04, Diabetic, depression bi-polar, fibromylagia, [facility] [place], sleep apnea, urinary incontinece, chronic bladder infection, ARF - Social History Smoking Status: Never smoked Alcohol Use: Sober Drug Use: None Additional Social History: - Physical Exam Exam: General Appearance: Alert, pleasant Eyes: Pupils equal and round, no conjunctival pallor or injection ENT, Mouth: Mucous membranes moist Neck: Normal inspection Respiratory: Lungs are clear to auscultation Cardiovascular: Regular rate and rhythm Gastrointestinal: Abdomen is soft and nontender Neurological: A&O, nonfocal exam Skin: Warm and dry, no rash Extremities: Nontender, no pedal edema Psychiatric: Mood and affect normal Constitutional: Initial Vital Signs Temperature (C) 36.6 C 10/14/18 15:22 Heart Rate 78 10/14/18 15:22 Respiratory Rate 16 10/14/18 15:22 Blood Pressure 131/75 H 10/14/18 15:22 O2 Sat (%) 100 10/14/18 15:22 O2 Delivery Mode Room Air Allergies/Adverse Reactions: ciprofloxacin [From Cipro] Allergy (Severe, Verified 10/14/18 18:37) Other-Enter Comments ciprofloxacin HCl [From Cipro] Allergy (Severe, Verified 10/14/18 18:37) Other-Enter Comments levofloxacin [From Levaquin] Allergy (Severe, Verified 10/14/18 18:37) Other-Enter Comments Penicillins Allergy (Severe, Verified 10/14/18 18:37) Anaphylaxis erythromycin lactobionate [From Erythrocin] Allergy (Unknown, Verified 10/14/18 18:37) Other-Enter Comments Sulfa (Sulfonamide Antibiotics) Allergy (Unknown, Verified 10/14/18 18:37) Other-Enter Comments adhesive Allergy (Verified 10/14/18 15:18) lanolin Allergy (Verified 10/14/18 15:18) tetanus immune globulin Allergy (Verified 10/14/18 15:18) Home Medications: Medication Instructions Recorded Aspirin [Aspirin 81mg (*)] 81 mg PO DAILY@07 09/01/17 Divalproex [Depakote] 500 mg PO QID@04,08,12,16 09/01/17 Levothyroxine [Synthroid 75 mcg 75 mcg PO DAILY@04 09/01/17 (*)] Lurasidone HCl [Latuda] 60 mg PO HS 09/01/17 Methylphenidate HCl [Ritalin 20mg 20 mg PO QID@04,08,12,16 09/01/17 (*)] buPROPion XL [Wellbutrin 150mg XL] 450 mg PO DAILY@04 09/01/17 metFORMIN HCL [Glucophage 500 mg 500 mg PO BIDMEAL 09/01/17 (*)] EPINEPHrine [Epipen 0.3 MG] 0.3 mg IM ONCE PRN 10/20/17 Herbals/Supplements -Info Only 1 ea PO DAILY 10/20/17 Immune Globul G/Gly/Iga Avg 46 10 gm IV Q30D 10/20/17 [Gamunex-C 10 Gram/100 ml Vial] Estradiol [Estrace Vaginal (*)] 0.125 gm VAG HS 10/14/18 Losartan Potassium [Cozaar 25 mg 25 mg PO DAILY 10/14/18 (*)] Modafinil [Provigil] 200 mg PO DAILY 10/14/18 Simvastatin 40 mg PO DAILY 10/14/18 Sotalol HCl [Sotalol] 120 mg PO DAILY@08,20 10/14/18 Medical Decision Making - Diagnostics Imaging Results: Renal sono read by the radiologist: TERRI Imaging: Discussed imaging studies w/ order desk caller Radiologist ED Course/Re-evaluation: This pt presents with ARF, creat today 2.0 and K+ 5.7. IV NS 1 liter given for hykalemia. Renal sono unremarkable. Will need admission for further eval of etiology for ARF. Pt stable throughout her ED stay. UA c/w UTI, urine cx sent and Rocephin 1gm IV given. Differential Diagnosis: includes prerenal causes such as dehydration, intrinsic renal disease, medication effect, and postrenal causes such as urinary retention. - Data Points Laboratory Results: Laboratory Results 10/14/18 19:51 10/15/18 03:30 10/15/18 12:00 Smear Review By Janessa SOTO MD Microbiology Results: MICROBIOLOGY 10/14/18 17:45 Urine,Clean Catch Urine Culture - Final Three Floris Types Gram Neg Diego Nonlactose Ferm. Medications Given: Atorvastatin Calcium (Lipitor) 20 mg PO DAILY MARK Stop: 04/13/19 08:59 Last Admin: 10/16/18 08:21 Dose: 20 mg Bupropion HCl (Wellbutrin Xl) 450 mg PO DAILY@04 MARK Stop: 04/13/19 03:59 Last Admin: 10/16/18 04:49 Dose: 450 mg Divalproex Sodium (Depakote) 500 mg PO QID@04,08,12,16 MARK Stop: 04/13/19 03:59 Last Admin: 10/16/18 12:25 Dose: 500 mg Estradiol (Estrace Vaginal) 0.125 gm VG HS MARK Stop: 04/12/19 20:59 Last Admin: 10/15/18 19:45 Dose: Not Given Heparin Sodium (Porcine) (Heparin Sc Injection) 5,000 unit SC Q8 MARK Stop: 04/12/19 21:59 Last Admin: 10/16/18 13:50 Dose: 5,000 unit Levothyroxine Sodium (Synthroid) 75 mcg PO DAILY@04 MARK Stop: 04/13/19 03:59 Last Admin: 10/16/18 04:47 Dose: 75 mcg Lurasidone HCl (Latuda) 60 mg PO HS MARK Stop: 04/12/19 20:59 Last Admin: 10/15/18 19:43 Dose: 60 mg Methylphenidate HCl (Ritalin) 20 mg PO QID@04,08,12,16 [facility] Stop: 10/25/18 03:59 Last Admin: 10/16/18 12:25 Dose: 20 mg Miscellaneous Medication (Modafinil [Provigil]) 200 mg PO DAILY [facility] Stop: 04/13/19 08:59 Last Admin: 10/16/18 08:22 Dose: Not Given Polyethylene Glycol (Miralax) 17 gm PO DAILY [facility] Stop: 04/14/19 09:29 Last Admin: 10/16/18 09:41 Dose: 17 gm Sotalol HCl (Betapace) 120 mg PO DAILY@0800,2000 [facility] Stop: 04/12/19 22:29 Last Admin: 10/16/18 08:21 Dose: 120 mg Discontinued Medications Aspirin (Aspirin) 81 mg PO DAILY@07 [facility] Stop: 04/13/19 06:59 Last Admin: 10/15/18 08:23 Dose: 81 mg Sodium Chloride (Ns) 1,000 mls @ 0 mls/hr IV ONCE ONE; Wide Open PRN Reason: Protocol Stop: 10/14/18 17:06 Last Admin: 10/14/18 17:45 Dose: 1,000 mls Sodium Chloride (Ns) 1,000 mls @ 50 mls/hr IV CONT [facility] Stop: 04/12/19 18:14 Last Admin: 10/15/18 21:21 Dose: 1,000 mls Departure - Departure Disposition: [facility] Acute Clinical Impression: Acute hyperkalemia Acute renal failure Qualifiers: Acute renal failure type: unspecified Qualified Code(s): N17.9 - Acute kidney failure, unspecified Condition: Fair
[2018-10-14] MEDS ORDERED: NS 1,000 ML IV ONE (17:05)
[2018-10-14] MEDS ORDERED: ACETAMINOPHEN 325 MG TAB PO PRN (18:15)
[2018-10-14] MEDS ORDERED: ONDANSETRON DISINTEGRATING 4 MG TAB PO PRN (18:15)
[2018-10-14] MEDS ORDERED: ONDANSETRON 4 MG/2 ML VIAL IVP PRN (18:15)
--- NOTE | 2018-10-14 19:40 | PDGENHP ---
History and Physical - Chief Complaint Increased Cr - History of Present Illness Elmira Harris is a 67 yo F with a PMhx of hypothyroidism, HTN, Atrial Tachycardia who presents to [facility] for elevated Cr. She was noted to have elevated Cr to 2.0 with a normal baseline. She reports that 6 wks ago she had dysuria and was dx with a UTI and was started on doxycycline. After starting that medication, she developed nausea and decreased appetite. She was then diagnosed with pyelonephritis and abx were switch to cefdinir. She reports resolution of bladder pain/dysuria with that medications. She was then noted ot have elevated Cr 1 week ago which has remained elevated which prompted presentation to ED today. She reports fatigue and generalized weakness recently. She reports decreased appetite and PO intake. She reports taking alot of Pedialight. She also reports 10 lb weight loss recently. She was noted to have some TAYLOR 1 week ago and had a recent stress test and TTE which were reportedly normal. History Information - Allergies/Home Medication List Allergies/Adverse Reactions: ciprofloxacin [From Cipro] Allergy (Severe, Verified 10/14/18 18:37) Other-Enter Comments ciprofloxacin HCl [From Cipro] Allergy (Severe, Verified 10/14/18 18:37) Other-Enter Comments levofloxacin [From Levaquin] Allergy (Severe, Verified 10/14/18 18:37) Other-Enter Comments Penicillins Allergy (Severe, Verified 10/14/18 18:37) Anaphylaxis erythromycin lactobionate [From Erythrocin] Allergy (Unknown, Verified 10/14/18 18:37) Other-Enter Comments Sulfa (Sulfonamide Antibiotics) Allergy (Unknown, Verified 10/14/18 18:37) Other-Enter Comments adhesive Allergy (Verified 10/14/18 15:18) lanolin Allergy (Verified 10/14/18 15:18) tetanus immune globulin Allergy (Verified 10/14/18 15:18) Home Medications: Aspirin [Aspirin 81mg (*)] 81 mg PO DAILY@07 09/01/17 [Last Taken 10/20/17] Divalproex [Depakote] 500 mg PO QID@04,08,12,16 09/01/17 [Last Taken 10/20/17 08 :00] Levothyroxine [Synthroid 75 mcg (*)] 75 mcg PO DAILY@04 11/29/17 [Last Taken ] Lurasidone HCl [Latuda] 60 mg PO HS 09/01/17 [Last Taken 10/19/17] Methylphenidate HCl [Ritalin 20mg (*)] 20 mg PO QID@04,08,12,16 09/01/17 [Last Taken 10/20/17 08:00] buPROPion XL [Wellbutrin 150mg XL] 450 mg PO DAILY@04 09/01/17 [Last Taken 10/20] metFORMIN HCL [Glucophage 500 mg (*)] 500 mg PO BIDMEAL 09/01/17 [Last Taken 07:00] EPINEPHrine [Epipen 0.3 MG] 0.3 mg IM ONCE PRN 10/20/17 [Last Taken Unknown] Herbals/Supplements -Info Only 1 ea PO DAILY 10/20/17 [Last Taken Unknown] Immune Globul G/Gly/Iga Avg 46 [Gamunex-C 10 Gram/100 ml Vial] 10 gm IV Q30D [Last Taken 10/07/18] Estradiol [Estrace Vaginal (*)] 0.125 gm VAG HS 10/14/18 [Last Taken Unknown] Losartan Potassium [Cozaar 25 mg (*)] 25 mg PO DAILY 10/14/18 [Last Taken Unknown] Modafinil [Provigil] 200 mg PO DAILY 10/14/18 [Last Taken Unknown] Simvastatin 40 mg PO DAILY 10/14/18 [Last Taken Unknown] Sotalol HCl [Sotalol] 120 mg PO DAILY@08,20 10/14/18 [Last Taken Unknown] I have personally reviewed and updated: family history, medical history, social history, surgical history - Past Medical History Additional medical history: Hypothyroidism, Atrial tachycardia - Surgical History Reports: no pertinent surgical hx - Social History Smoking Status: Never smoked Review of Systems Review of Systems: ROS: 10pt was reviewed & negative except for what was stated in HPI & below Physical Exam Physical Exam: Temp Pulse Resp BP Pulse Ox 36.8 C 81 17 118/81 H 97 10/14/18 19:26 10/14/18 19:26 10/14/18 19:26 10/14/18 19:26 10/14/18 19:26 Constitutional: no apparent distress Eyes: PERRL Ears, Nose, Mouth, Throat: moist mucous membranes Cardiovascular: regular rate and rhythym Respiratory: no respiratory distress Gastrointestinal: normoactive bowel sounds Genitourinary: no bladder tenderness Neurologic: AAOx3 Psychiatric: interacting appropriately Lab Data & Imaging Review 10/14/18 17:36 10/14/18 17:10 WBC REJ 10/14/18 17:36 RBC REJ 10/14/18 17:36 Hgb REJ 10/14/18 17:36 Hct REJ 10/14/18 17:36 MCV REJ 10/14/18 17:36 MCH REJ 10/14/18 17:36 MCHC REJ 10/14/18 17:36 RDW REJ 10/14/18 17:36 Plt Count REJ 10/14/18 17:36 MPV REJ 10/14/18 17:36 Neut % (Auto) REJ 10/14/18 17:36 Lymph % (Auto) REJ 10/14/18 17:36 [place] % (Auto) REJ 10/14/18 17:36 Eos % (Auto) REJ 10/14/18 17:36 Baso % (Auto) REJ 10/14/18 17:36 Nucleat RBC Rel Count REJ 10/14/18 17:36 Absolute Neuts (auto) REJ 10/14/18 17:36 Absolute Lymphs (auto) REJ 10/14/18 17:36 Absolute Monos (auto) REJ 10/14/18 17:36 Absolute Eos (auto) REJ 10/14/18 17:36 Absolute Basos (auto) REJ 10/14/18 17:36 Absolute Nucleated RBC REJ 10/14/18 17:36 Immature Gran % REJ 10/14/18 17:36 Immature Gran # REJ 10/14/18 17:36 Sodium 137 mEq/L (135-145) 10/14/18 17:10 Potassium 5.7 mEq/L (3.5-5.2) H 10/14/18 17:10 Chloride 105 mEq/L (97-110) 10/14/18 17:10 Carbon Dioxide 26 mEq/l (22-31) 10/14/18 17:10 Anion Gap 6 mEq/L (6-14) 10/14/18 17:10 BUN 16 mg/dL (7-23) 10/14/18 17:10 Creatinine 2.0 mg/dL (0.6-1.0) H 10/14/18 17:10 Estimated GFR 25 10/14/18 17:10 Glucose 72 mg/dL (70-100) 10/14/18 17:10 Calcium 8.6 mg/dL (8.5-10.4) 10/14/18 17:10 Specimen Hemolysis 109 10/14/18 17:10 Urine Color PALE YELLOW 10/14/18 17:45 Urine Appearance CLEAR 10/14/18 17:45 Urine pH 8.0 (5.0-7.5) H 10/14/18 17:45 Ur Specific [place] 1.005 (1.002-1.030) 10/14/18 17:45 Urine Protein NEGATIVE (NEGATIVE) 10/14/18 17:45 Urine Ketones NEGATIVE (NEGATIVE) 10/14/18 17:45 Urine Blood NEGATIVE (NEGATIVE) 10/14/18 17:45 Urine Nitrate NEGATIVE (NEGATIVE) 10/14/18 17:45 Urine Bilirubin NEGATIVE (NEGATIVE) 10/14/18 17:45 Urine Urobilinogen NEGATIVE EU (0.2-1.0) 10/14/18 17:45 Ur Leukocyte Esterase 2+ (NEGATIVE) H 10/14/18 17:45 Urine RBC 1-3 /hpf (0-3) 10/14/18 17:45 Urine WBC 25-50 /hpf (0-3) H 10/14/18 17:45 Ur Epithelial Cells TRACE /lpf (NONE-1+) 10/14/18 17:45 Ur Renal Epithelial Cell TRACE /hpf (NONE SEEN) H 10/14/18 17:45 Urine Glucose NEGATIVE (NEGATIVE) 10/14/18 17:45 Assessment & Plan Assessment: Acute Renal Failure - Cr 1.7 on 09/22, 2.0 on admission this morning, BUN WNL - Recent UTI, s/p treatment with Doxycycline, Cephalosporin - Decreased PO intake, 12 lb weight loss - S/p IVF in ED, will continue maintenance IVF overnight - Renal U/S performed on admission, no acute etiology - UA on admission with 2+ LE, not complaining of urinary symptoms, will hold on further abx - Will order FENa to further evaluate - Order Urine Eosinophils to evaluate for AIN given recent abx - Consult Nephrology in the AM Hyperkalemia - K 5.7 on admission, hemolysis noted on sample - Repeat K level ordered - If remains elevated with perform EKG, give Kayexylate, Insulin/D50 as needed - 2/2 to LUIS as above T2DM - Holding home Metformin - Order SSI if needed Hypothyroidism - Continue home synthroid Atrial Tachycardia, Hx of - Continue home Sotalol FEN: IVF, Renal Diet PPx: SubQ Heparin Code: FULL Dispo: Admit to Observation
[2018-10-14] MEDS ORDERED: Epinephrine [Epipen 0.3 Mg] IM PRN (20:07)
[2018-10-14 20:14] LABS: PLATELET COUNT 307 10^3/uL (150-400)
[2018-10-14] MEDS: NS 1,000 ML IV SCH (21:10)
[2018-10-14] MEDS: ESTRADIOL 42.5 GM CRTUBE VG SCH (21:16)
[2018-10-14] MEDS: HEPARIN 5,000 UNIT/0.5 ML INJ SC SCH (22:06)
[2018-10-14] MEDS: LURASIDONE HCL 20 MG TAB PO SCH (22:11)
[2018-10-14] MEDS: SOTALOL HCL 80 MG TAB PO SCH (22:52)
[2018-10-15] MEDS: NS 1,000 ML IV SCH ×3 (05:09→21:21)
[2018-10-15] MEDS: buPROPion XL 150 MG TAB PO SCH (05:10)
[2018-10-15] MEDS: LEVOTHYROXINE 75 MCG TAB PO SCH (05:11)
[2018-10-15] MEDS: DIVALPROEX NA 500 MG TAB PO SCH ×4 (05:12→17:00)
[2018-10-15] MEDS: HEPARIN 5,000 UNIT/0.5 ML INJ SC SCH ×3 (05:13→21:21)
[2018-10-15] MEDS ORDERED: ASPIRIN 81 MG CHEWABLE TAB PO SCH (07:00)
[2018-10-15] MEDS: SOTALOL HCL 80 MG TAB PO SCH ×2 (08:23→19:43)
[2018-10-15] MEDS: ATORVASTATIN CALCIUM 20 MG TAB PO SCH (08:23)
[2018-10-15] MEDS: Modafinil [Provigil] 200 MG PO SCH (08:25)
[2018-10-15] MEDS ORDERED: Herbals/Supplements -Info Only PO SCH (09:00)
--- NOTE | 2018-10-15 09:46 | ASMTCMCOM ---
CM Note CM Note Notes: Chart reviewed for discharge planning purposes. 67 year old patient with recent UTI admitted via ED for elevated creatinine and weight loss. Normally lives independently with her . CM to follow for needs. Plan: TBD Date Signed: 10/15/2018 09:45 AM Electronically Signed By:Leisa Salazar RN
--- NOTE | 2018-10-15 13:25 | HOSPPROG ---
Hospitalist Progress Note Assessment/Plan: 67-year-old admitted with increased creatinine from clinic. She is otherwise doing fairly well. She has a history of a UTI diagnosed before and was treated with doxycycline. She felt that she had improved however on September 24 started to feel bad again and went to the emergency department and was diagnosed with pyelonephritis and started on cefdinir she said after completing the course of antibiotic she was feeling better with resolution of her right flank pain. Of note there was a CT scan done in the emergency department that did reveal some perinephric stranding consistent with pyelonephritis of the right kidney. She has continued to feel thirsty all the time and has been drinking a lot of Pedialyte, this is normal for her and she has been doing this for some time. When she went back in to see her primary care provider and had a metabolic panel done she was noted to have a creatinine of 2.0 and sent to the emergency department. She was admitted for further evaluation of this. Overnight she has done better with a slight improvement in her creatinine, overall she feels well. # acute renal failure with elevated creatinine fpr 3 weels. Unclear etiology could potentially be related to her pyelonephritis however I would think that he would be improved at this point time. She did have a slight improvement with IV fluids overnight she continues to have mild pyuria * Will discuss with nephrology * Check urine eosinophils, sodium and creatinine * Renal ultrasound was unremarkable * Continue IVF an additional 24 hours to see if creatinine improves more * Further recommendations depend on nephrology consult. # Hyperkalemia, likely exacerbated by pedialyte intake. Pt educated on it and potassium improved. # SVT, followed by [facility] she recently had a full evaluation there including an echocardiogram and nuclear stress test both of which were unremarkable. She continues to take Sotalol. # depression currently on Latuda and methylphenidate. # severe allergy to penicillin Pt will need additional midnight stay because cause of renal failure is still unclear and patient may need renal biopsy. Additionally her potassium was quite elevated on admission and has improved although would like to make sure it doesn't worsen since her renal function has not significantly improved. - Subjective: Patient new to me and chart reviewed. Feels relatively well, a little bit tired but no flank pain or urinary symptoms Objective: Vital Signs Temp Pulse Resp BP Pulse Ox 36.6 C 75 12 136/73 H 96 10/15/18 10:57 10/15/18 10:57 10/15/18 10:57 10/15/18 10:57 10/15/18 10:57 Laboratory Results 10/14/18 19:51 10/15/18 03:30 10/14/18 10/15/18 10/16/18 05:59 05:59 05:59 Intake Total 2433 400 Output Total 1575 1400 Balance 858 -1000 - Physical Exam Constitutional: no apparent distress, not in pain Eyes: PERRL Ears, Nose, Mouth, Throat: moist mucous membranes Cardiovascular: regular rate and rhythym, no murmur, rub, or gallop Respiratory: no respiratory distress, clear to auscultation Gastrointestinal: soft, non-tender abdomen Genitourinary: no bladder fullness Skin: warm, normal color Musculoskeletal: normal joint ROM Neurologic: AAOx3 Psychiatric: interacting appropriately, not anxious ICD10 Worksheet Patient Problems: Problems Problem Status Onset PSVT (paroxysmal supraventricular tachycardia) Acute
--- NOTE | 2018-10-15 18:18 | PDMN ---
Medical Necessity Medical necessity: Pt meets INPT criteria per MD as of 10/15/18 and [facility] [id number] Renal Failure, Acute (est. LOS >2 MN for ongoing eval/mgmt of acute renal failure, may need renal bx, hyperkalemia; comorbid SVT and depression).
[2018-10-15] MEDS: LURASIDONE HCL 20 MG TAB PO SCH (19:43)
[2018-10-15] MEDS: ESTRADIOL 42.5 GM CRTUBE VG SCH (19:45)
[2018-10-16] MEDS: DIVALPROEX NA 500 MG TAB PO SCH ×4 (04:47→16:39)
[2018-10-16] MEDS: HEPARIN 5,000 UNIT/0.5 ML INJ SC SCH ×2 (04:47→13:50)
[2018-10-16] MEDS: LEVOTHYROXINE 75 MCG TAB PO SCH (04:47)
[2018-10-16] MEDS: buPROPion XL 150 MG TAB PO SCH (04:49)
--- NOTE | 2018-10-16 07:30 | GCON ---
NEPHROLOGY CONSULTATION DATE OF CONSULTATION: 10/15/2018 REASON FOR CONSULTATION: Acute renal failure. HPI: I have been asked to evaluate the patient regarding her acute renal failure. She is a 67-year- old woman with a history of hypertension and glucose intolerance. She describes being treated for a urinary tract infection in August. From her description, this sounds like it was asymptomatic bact eria, as she denies any actual dysuria at that time. She completed a course of doxycycline. She thi nks it may have been 10 days. She then felt completely fine until September 24, when she developed acute onset of sharp right flank pain. She states that this developed in the late afternoon and wors ened over a period of several hours to the point were she had to seek medical attention in the emerge ncy room. She had a noncontrast CT of the abdomen and pelvis performed at that visit that demonstrat ed a "thickened" right kidney, felt to be possibly consistent with right-sided pyelonephritis. She a damantly denies any fevers or dysuria at that time, but a urinalysis contained multiple white blood c ells, and she was treated with a cephalosporin. She did complete this course, and states that her pa in very gradually subsided, though it took until the very end of her antibiotic course before it was completely resolved. She denies any gross hematuria or tea-colored urine. She denies any lower extr emity edema or skin rashes or arthralgias. Her creatinine at the time of her ER visit was 1.8. Her previous baseline had been 0.8 documented as recently as August. Creatinine a few days later was 1 .2, but 2 days ago she had labs again as an outpatient demonstrating a creatinine of 2.0 and was subs equently referred to the emergency room yesterday evening for evaluation. Here her creatinine was co nfirmed as 2.0. A renal ultrasound was performed which was essentially normal. She received IV flui ds overnight, and her creatinine today is 1.8. She feels completely well, though she has been somewh at fatigued and has apparently lost some weight over the past 2 months. A urinalysis here was positi ve for white blood cells and positive leukocyte esterase, but otherwise negative. A urine culture is thus far growing 2 colony types. Of note, her urine culture from her initial ER visit in September g rew normal urogenital glen. She denies any fevers or dysuria throughout the past few weeks, and has not used any nonsteroidal anti-inflammatories. She received tramadol for pain in the emergency room . She has no knowledge of prior renal disease, though she does believe she had a kidney infection ma ny years ago, but the discomfort with that was nowhere near as severe as what she experienced last mo nth. PAST MEDICAL HISTORY: 1. Glucose intolerance, on metformin. 2. Hypertension, treated with low-dose losartan. 3. Atrial tachycardia. 4. Hypothyroidism. 5. Depression. 6. Hyperlipidemia. PAST SURGICAL HISTORY: 1. Appendectomy. 2. Cholecystectomy. 3. Hysterectomy. 4. Knee arthroscopy. ALLERGIES: Ciprofloxacin, levofloxacin, penicillins, erythromycin, sulfa, adhesive tape, and ___ are all listed as allergies. ADMISSION MEDICATIONS: Ritalin 20 mg 4 times daily, metformin 500 mg twice daily, Synthroid 75 mcg d aily, lurasidone 60 mg nightly, Depakote 500 mg 4 times daily, Wellbutrin mg daily, aspiri n 81 mg daily, Gamunex monthly, herbal supplements daily, sotalol 120 mg daily, Zocor 40 mg daily, Pr ovigil 200 mg daily, losartan 25 mg daily, and Estrace nightly. SOCIAL HISTORY: She is originally from [place], but has lived in [place] for over 40 years. 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 She has never smoked and does not drink. FAMILY HISTORY: No family history of renal disease that she is aware of, though she does believe she had a family member who lost a kidney for unknown reasons. REVIEW OF SYSTEMS: Positive for some fatigue and weight loss recently. Positive for chronic high da aminta oral fluid intake and subsequent polyuria. Negative for any vascular disease. Aside from other positives noted in HPI, the remainder of a 10-organ system review is negative. PHYSICAL EXAM: GENERAL: She is well appearing, in no acute distress. VITAL SIGNS: Blood pressure is 127/74, heart rate 67, oxygenation is 96% on room air. HEENT: Sclerae are anicteric. Oral mucos a is moist. Oropharynx is clear. NECK: Supple without JVD or lymphadenopathy. There are no caroti d bruits. LUNGS: Completely clear to auscultation bilaterally. BACK: No CVA tenderness. HEART: Regular rate and rhythm without murmurs, gallops, or rubs. ABDOMEN: Soft, nontender, with normoacti ve bowel sounds. I do not appreciate hepatosplenomegaly, masses, or bruits, even with extended auscu ltation. EXTREMITIES: There is no lower extremity edema. I cannot definitely appreciate pedal puls es, but her feet are warm and appear well perfused. Femoral pulses are normal without bruits. NEURO : She is awake, alert, and appropriate. There is no facial droop. SKIN: There are no skin rashes. : Orellana catheter is absent. LABS: Sodium 139, potassium 4.2, chloride 112, CO2 21, BUN 13, creatinine 1.8, glucose 81, calcium 8 .1, phosphorus 4.6, albumin 2.6, total protein 5.4. AST and ALT are normal. Total bilirubin is 0.2. TSH is 2.8. On admission yesterday, her potassium was 5.7, with a creatinine of 2.0; however, repe at potassium was 4.6. With blood cell count is 6.9, hemoglobin 9.5, platelets 307. Urinalysis was p ositive for 2+ leukocyte esterase, and 25-50 white blood cells, but otherwise negative. Random urine sodium was 55, with a random urine creatinine of 28. A urine eosinophil smear shows a few eosinophi ls. IMPRESSION/PLAN: 1. Acute renal failure: Her acute onset of flank pain last month could be completely consistent wit h a renal infarct. She had no fever or dysuria at that time, and her urine culture was actually nega tive, making pyelonephritis somewhat less likely. I did review her CT from her September ER visit, an d her right kidney does appear somewhat larger and more lobular than her left kidney. However, her k idneys appeared completely normal on her renal ultrasound yesterday. Though a renal infarct would ex plain her clinical symptoms, it would not explain her acute renal failure, as even total infarction o f her right kidney should not cause such a dramatic increase in her creatinine. Her urinalysis on admission is essentially negative. Reviewing prior labs, nearly every urinalysis she has never harris bmitted has significant leukocyturia. Not mentioned above, a serum protein electrophoresis was negat [place] for paraprotein. I would like to image her renal vasculature to exclude a significant abnormalit y such as a dissection, which could potentially be affecting both kidneys, thereby explaining her cre atinine increase and her possible infarction last month. Unfortunately, she cannot receive IV contra st for a CT angiogram; therefore, I will request a noncontrast MRI of the abdomen with particular att ention to the kidneys and renal vessels. Depending on the results of this, we will proceed as indica joseph. If it is completely normal, she could ultimately require a renal biopsy. I would continue to h old her angiotensin receptor pema for the time being. She should also discontinue aspirin product s which would delay a renal biopsy significantly. Fortunately, her creatinine appears to have been q uite stable over the past few weeks, and depending on what is found this evaluation, may be able to b e continued as an outpatient. 2. Hypertension: This is well controlled despite discontinuation of her angiotensin receptor blocke r. It does appear that her blood pressure may be trending upward; therefore, I will decrease her rat e of IV fluids, particularly since this does not appear to be prerenal azotemia. 3. Recent flank pain: As outlined above, I am somewhat suspicious that she suffered a renal infarct . This will be difficult to diagnose with certainty aside from imaging. I will send an LDH, though I would expect this to have completely resolved by this time. Thank you for the consultation. We will follow with you. /[id number]/MODL
[2018-10-16] MEDS: ATORVASTATIN CALCIUM 20 MG TAB PO SCH (08:21)
[2018-10-16] MEDS: SOTALOL HCL 80 MG TAB PO SCH (08:21)
[2018-10-16] MEDS: Modafinil [Provigil] 200 MG PO SCH (08:22)
[2018-10-16] MEDS ORDERED: POLYETHYLENE GLYCOL 3350 17 GM PKT PO SCH (09:30)
[2018-10-16 15:18] VITALS: BP 132/76
--- NOTE | 2018-10-16 16:37 | ASMTLACE ---
LACE Length of stay for Answers: Less than 1 day current admission Acuity / Level of Answers: Yes Care: Did the patient have an inpatient admission? Comorbidities - select Answers: Mild liver or renal all that apply disease # of Emergency department Answers: 1-2 visits in the last 6 months Score: 6 Date Signed: 10/16/2018 04:37 PM Electronically Signed By:Leisa Salazar RN
--- NOTE | 2018-10-16 16:39 | ASMTDCNOTE ---
Case Management Discharge Discharge Order Complete? Answers: Yes Patient to Obtain Answers: Independently Medications Transportation Arranged Answers: Family/Friends Family Notified Answers: Yes Discharge Comments Notes: Patient has been medically cleared for discharge, No current needs identiifed. Date Signed: 10/16/2018 04:38 PM Electronically Signed By:Leisa Salazar RN
--- NOTE | 2018-10-16 19:40 | GDS ---
DIAGNOSES: 1. Acute renal failure. Unclear etiology. 2. Diabetes. 3. SVT. Followed at [facility]. 4. Depression. 5. Severe allergy to penicillin. CONSULTATION: Dr. Haja Jones. PROCEDURES DONE: 1. Abdominal MRI: No evidence of hydronephrosis or definite renal infarct. No evidence of complete occlusion or flow-limiting stenosis of bilateral main renal arteries. No aortic aneurysm or aortoil iac stenosis. 2. Abdominal pelvic ultrasound: Normal. HOSPITAL COURSE: The patient is a 67-year-old woman who was admitted from her doctor's office with a n elevated creatinine and potassium. She had recently been treated for a urinary tract infection and possible pyelonephritis. On September 22 her creatinine was 2.0. It did improve slightly; however , worsened again without clear etiology, which the PCP was concerned so sent her to the emergency [facility] for further evaluation and treatment. She was admitted to the hospital, placed on IV fluids and meier d a renal consult. Her kidney function did slowly improve to 1.5 at the time of discharge after gett ing some IV fluids. Dr. Jones saw her in consultation and was unclear as to the etiology of her ellen l failure. Possibilities could include ATN. He did think about a possible renal infarct or flow-esposito iting stenosis, both of which were ruled out with the MRI. At this time, since her renal function is improving, she will be discharged home with close followup. I will order a renal panel to be done a s an outpatient and sent to Dr. Jones's office. If her renal function continues to improve to normal , she does not need renal followup. If it remains elevated, she can follow up with Dr. Jones or one of his colleagues as an outpatient. At the time of discharge, I will continue to hold her metformin and losartan until her renal function is back to baseline. CONDITION ON DISCHARGE: Good. Vital signs are stable. Her blood pressure is well controlled at 130 /74. DISCHARGE MEDICATIONS: Please see discharge medication form. FOLLOWUP INSTRUCTIONS: She will get a blood test done on Wednesday or Wednesday with results sent to Chente Jones. Follow up with Dr. Burns this week for hospital followup and follow up with Dr. Jones de pending on her blood work. Total time spent with patient on day of discharge and coordination of care is 35 minutes. /[id number]/MODL
[2018-11-07] MEDS ORDERED: IMMUNE GLOBULIN IV SCH (09:00)
== END 2018-10-16 16:48 | disposition home or self-care (01) | DRG 683 ==
LOC: INTOOBSV 18:10 → F2W 19:25 → OBSVTOIN 10-15 17:08
PROVIDERS: ADMIT Internal Medicine; ATTEND Internal Medicine
DX: N17.9 Acute kidney failure, unspecified (principal); E87.5 Hyperkalemia; I47.1 Supraventricular tachycardia; E11.9 Type 2 diabetes mellitus without complications; E03.9 Hypothyroidism, unspecified; I10 Essential (primary) hypertension; F32.9 Major depressive disorder, single episode, unspecified; G47.30 Sleep apnea, unspecified; Z87.440 Personal history of urinary (tract) infections; Z87.81 Personal history of (healed) traumatic fracture; Z88.0 Allergy status to penicillin
CPT/HCPCS: 97161-GP; 97165-GO; G0378; J1644

== ENCOUNTER → 2018-11-10 | Outpatient (CLI) | payer OTHER, MEDICARE | LOC: BMCIMAGING 07:49 | PROVIDERS: ATTEND Internal Medicine Pulmonary Disease | DX: R06.00 Dyspnea, unspecified (principal) | CPT/HCPCS: 82164-90; 83010-90 ==

== ENCOUNTER 2018-11-24 07:35 | Inpatient (IN) | payer OTHER, MEDICARE ==
[2018-11-24] MEDS ORDERED: ASPIRIN EC 325 MG TAB PO ONE ×2 (07:39→08:10)
[2018-11-24] MEDS ORDERED: diphenhydrAMINE 25 MG CAP PO ONE ×2 (07:39→08:10)
[2018-11-24] MEDS ORDERED: DIAZEPAM 5 MG TAB PO ONE (07:39)
[2018-11-24] MEDS ORDERED: FAMOTIDINE 20 MG TAB PO ONE (07:39)
[2018-11-24] MEDS ORDERED: NS 1,000 ML IV ONE (07:39)
[2018-11-24] MEDS ORDERED: FAMOTIDINE 20 MG TAB ONE (08:10)
[2018-11-24] MEDS ORDERED: DIAZEPAM 5 MG TAB ONE (08:11)
[2018-11-24 08:42] LABS: PLATELET COUNT 296 10^3/uL (150-400)
[2018-11-24] MEDS ORDERED: MIDAZOLAM 2 MG/2 ML VIAL ONE ×2 (08:53→11:46)
[2018-11-24] MEDS ORDERED: LIDOCAINE 1% 300 MG/30 ML SDV ONE (08:53)
[2018-11-24] MEDS ORDERED: IOPAMIDOL (ISOVUE-370) 150 ML BTL IV ONE ×3 (08:53→12:28)
[2018-11-24] MEDS ORDERED: fentaNYL 100 MCG/2 ML INJ ONE ×2 (08:53→11:58)
[2018-11-24 09:31] LABS: INR 0.98 (0.83-1.16); PROTIME(PATIENT) 13.2 SEC (12.0-15.0)
--- NOTE | 2018-11-24 09:45 | PDPROPOC ---
Sedation Plan of Care Sedation Plan of Care: vital signs stable, mental status noted, patient educated of risks, benefits, alternatives, patient can tolerate sedation ASA Classification: ASA 4 Planned drugs: fentanyl, midazolam Mallampati Score: Class 2 Mallampati Reference Image: Patient passed 3-3-2 rule?: Yes
--- NOTE | 2018-11-24 09:49 | PDHPUP ---
History & Physical Update H&P update statement: This history and physical update is based on an assessment of the patient which was completed after admission or registration (within 24 hours), but prior to the surgery/procedure. H&P update: H&P reviewed & patient examined, no change in patient's condition since H&P completed
--- NOTE | 2018-11-24 10:21 | PDDXCAT ---
Diagnostic Cath Note - . Date: 11/24/18 [place] Operator: Patricia Indication: other (Dyspnea and fatigue) - Procedure Access: right groin Procedure: left heart catheterization, coronary angiography - Materials Left Heart Cath size: 6F Left Heart Cath materials: JL4.0, JR4.0, pigtail - Findings-Left Heart Catheterization LM: The left main is 5mm in size and bifurcates into an LAD and Circumflex system. LAD: The left anterior decending artery is 4 mm in size. There is a 90% lesion of the ostial diagonal. The vessel is a large and principal diagonal. There is MEERA III flow in both the LAD and diagonal. The LAD was found to have a 65% stenosis at the takeoff of the diagonal vessel via IVUS imaging. LCX: The left circumflex is 4mm in size and co-dominant. The vessel gives rise to two important obtuse marginal branches. There is MEERA III flow. RCA: The right coronary artery is 2.5mm in size and co-dominant. There is no evidence of flow-limiting disease. EDP: 10mmHg LVEF: 65% Wall motion: On the LV gram there is normal LV systolic function. The EF is 65% . There are no resting segmental wall motion abnormalities. The visualized portion of the thoracic aortic valve reveals three sinuses of valsalva most consistent with a trileaflet valve. There is no gradient on pullback across the aortic valve. There is no evidence of alicia dissection or aneurysm formation of the thoracic aorta. - Findings-Right Heart Catheterization RA: ; SVC SAT 72.3% RV: 24/-2/4; IVC SAT 78.0% PA: 30/06/; SAT 68.6% PAOP: AO: 135/65/95 CO: 5.84 CI: 3.22 Complications: NONE Estimated blood loss: <50ml Closure method: Angioseal Assessment: The patient has severe and obstructive [place] vessel coronary disease. The patient has a co-dominant right and left circumflex system. There was a 90% lesion of the ostial diagonal at its takeoff from the LAD. The patient was stented in the osital diagonal which shifet plaque into the LAD proper and created an 85% obstruction of the LAD which required bifurcation stenting/ intervention. The patient had MEERA III flow pre and post stent implantaton in both the LAD and diagonal vessels, pre and post stent implant. following kissing balloon angioplast their was a proximal edge dissection of the LAD requiring a stent of the ostial and proximal LAD overlapping with the LAD stent. finally the diagonal origin was reballooned with a NC balloon nad the procedure was temrinated. Plan: I would like her to be started on Aspirin 81mg along with Effient 10mg daily daily. I think it is important to consider dual antiplatelet therapy jail given the patient has bifurcation LAD and diagonal stents and a stent in the ostial LAD for purposes of edge dissection repair. No elective surgery for the first 3 months. Decisions to stop dual antiplatelet therapy before 1 year should involve our office [facility] at . Intervention: A 6 [place] JR4 guiding catheter was used for guide catheter support. A 0.014" 180 cm Intuition Wire was advanced across the lesion in question under direct fluoroscopic and angiographic guidance. A 2.75 x 12mm Emerge balloon was advanced over the lesion in the ostial diagonal. The initial inflation of the balloon was for 8 seconds at 10atm, the second inflation was for 14 seconds at 14atm. A 2.75 x 10mm Higden cutting balloon was advanced down the Intuition wire. The first attempt was for 64 seconds at 10atm. A 2.75 x 12mm Synergy drug eluting stent was advanced down the wire over the lesion. The stent balloon was inflated initially inflated for 30 seconds at 14atm, and post stent inflation was for 15 seconds at 15atm. The Intuition wire in the diagonal was redirected into the LAD through the side strut of the stent and the original Intuition wire in the LAD was removed. Placement of the ostial diagonal stent pushed plaque into the LAD proper causing an 85% obstruction in the vessel. A small 1.25 x 6mm Sprinter balloon would not cross into the LAD through the side strut of the stent. The 6F guiding catheter was exchanged for a 7F EBU guiding catheter. A 0.014" 180cm Intuition wire was reintroduced into the LAD proper. A 190cm Wiggle wire was placed down the LAD in addition to the Intuition wire. A 1.25 x 6mm Sprinter Legend balloon was advanced down the Wiggle wire and the Intuition wire was removed. The Sprinter balloon was initially inflated for 30seconds at 15atm, the second inflation was for 18seconds at 20atm and the final inflation was for 10 seconds at 20atm. The Sprinter balloon was removed and the 2.5x 12mm Emerge balloon was reintroduced over the lesion. The Emerge balloon was initially inflated for 23 seconds at 18atm and removed. A Intuition wire was advanced down the diagonal. The 1.25x 6mm Sprinter Legend balloon was reintroduced and advanced down Intuition wire in the diagonal and inflated for 12 seconds at 12atm. The Sprinter balloon was then removed and a new 2.5 x 12mm Emerge balloon was advanced down the Intuition wire. The Emerge balloon initial inflation was for 12 seconds at 15atm, and the second inflation was for 16 seconds at 18atm. The Emerge balloon and Intuition wire were removed from the diagonal. A 4 x 16mm Synergy stent was advanced down the Wiggle wire in the mid LAD. The stent was initially deployed for 12 seconds at 14atm, and the second inflation was 18seconds at 14atm. A Spray Worker 50 wire was advanced down the diagonal. A 1.25 x 10mm Sprinter balloon was advanced down the Spray Worker wire into the diagonal and initial inflation was for 14 seconds at 15atm and then for 16 seconds at 15atm. The Spray Worker wire was temporarily removed for reshaping and reintroduced down the diagonal. A 2.75 x 12 Emerge balloon was advanced down the Spray Worker 50 wire into the diagonal and a 3.75 x 12 Emerge balloon were advanced down the Wiggle wire into the mid LAD. The 2.75 x 12 Emerge balloon was inflated at for 32 seconds at 16atm and removed. The 3.75x 12 Emerge balloon was inflated for 32 seconds at 8atm and removed. (The balloon inflations were simultaneous and for purposes of kissing balloon angioplasty. The Spray Worker 50 wire was removed. There was a dissection of the proximal LAD after kissing balloon angioplasty. A 3.5 x 8mm Synergy stent was advanced down the Wiggle wire into the proximal and ostial LAD. The stent was deployed for 31 seconds at 20atm, second inflation was for 6 seconds at 18atm, and final inflation was for 7 seconds at 18atm. The Spray Worker 50 wire was reintroduced down the ostial diagonal branch. A 2.75 x 8mm Emerge NC balloon was advanced down the Spray Worker 50 wire in the diagonal. The initial inflation of the Emerge balloon was for 26 seconds at 14atm. The second inflation was for 20 seconds at 18atm. The balloon was removed in addition to the Spray Worker 50 wire and Wiggle wire. There was 5% residual post stent stenosis in the LAD and 20% residual post stent stenosis in the ostial diagonal. There was MEERA III flow pre and post stent implantation in the LAD and diagonal vessels. Patient Problems: Problems Problem Status Onset Acute hyperkalemia Acute Acute renal failure Acute PSVT (paroxysmal supraventricular tachycardia) Acute
[2018-11-24] MEDS ORDERED: BIVALIRUDIN 250 MG/5 ML VIAL IV ONE ×2 (10:49→12:08)
[2018-11-24] MEDS ORDERED: NITROGLYCERIN 1,500 MCG/15 ML VIAL MISC ONE (12:14)
[2018-11-24] MEDS ORDERED: PRASUGREL HCL 10 MG TAB ONE (12:37)
[2018-11-24] MEDS ORDERED: HYDROCODONE/APAP 5/325 TAB PO PRN (12:57)
[2018-11-24] MEDS ORDERED: NITROGLYCERIN 0.4 MG BTL SL PRN (12:57)
[2018-11-24] MEDS ORDERED: ONDANSETRON 4 MG/2 ML VIAL IVP PRN (12:57)
[2018-11-24] MEDS ORDERED: PRASUGREL HCL 10 MG TAB PO ONE (12:57)
[2018-11-24] MEDS ORDERED: ATROPINE SULFATE 1 MG/10 ML SYR IVP PRN (12:57)
[2018-11-24] MEDS ORDERED: TEMAZEPAM 15 MG CAP PO PRN (12:57)
[2018-11-24] MEDS ORDERED: LORazepam 2 MG/ML INJ IVP PRN (12:57)
[2018-11-24] MEDS ORDERED: OXYCODONE/APAP 5/325 TAB PO PRN (12:57)
[2018-11-24] MEDS ORDERED: NS 1,000 ML IV SCH (13:00)
--- NOTE | 2018-11-24 14:58 | CPEKG ---
Test Reason : OPEN Blood Pressure : / mmHG Vent. 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
--- NOTE | 2018-11-24 14:59 | CPEKG ---
Test Reason : OPEN Blood Pressure : / mmHG Vent. Rate : 059 BPM Atrial Rate : 060 BPM P-R Int : 163 ms QRS Dur : 107 ms QT Int : 457 ms P-R-T Axes : 075 -19 -76 degrees QTc Int : 453 ms Sinus rhythm Borderline left axis deviation Repol abnrm suggests ischemia, anterolateral Confirmed by Marvin Mortensen ([id number]) on 11/24/2018 2:58:58 PM Referred By: Mickey Gomez Confirmed By:Marvin Mortensen
[2018-11-24] MEDS: LOSARTAN POTASSIUM 25 MG TAB PO SCH (17:23)
[2018-11-24] MEDS: DIVALPROEX NA 500 MG TAB PO SCH (17:23)
[2018-11-24] MEDS: predniSONE 10 MG TAB PO SCH (17:23)
[2018-11-24] MEDS: MYCOPHENOLATE MOFETIL 250 MG CAP PO SCH (21:05)
[2018-11-24] MEDS: LURASIDONE HCL 20 MG TAB PO SCH (21:06)
[2018-11-24] MEDS: METOPROLOL TARTRATE 50 MG TAB PO SCH (21:07)
[2018-11-25] MEDS: DIVALPROEX NA 500 MG TAB PO SCH ×4 (04:36→18:05)
[2018-11-25] MEDS: LEVOTHYROXINE 75 MCG TAB PO SCH (04:37)
[2018-11-25] MEDS: buPROPion XL 150 MG TAB PO SCH (04:37)
[2018-11-25 04:46] LABS: PLATELET COUNT 260 10^3/uL (150-400)
[2018-11-25] MEDS ORDERED: ASPIRIN EC 325 MG TAB PO SCH (09:00)
[2018-11-25] MEDS: MYCOPHENOLATE MOFETIL 250 MG CAP PO SCH ×2 (09:53→20:24)
[2018-11-25] MEDS: ATORVASTATIN CALCIUM 20 MG TAB PO SCH (09:53)
[2018-11-25] MEDS: METOPROLOL TARTRATE 50 MG TAB PO SCH ×2 (09:53→20:24)
[2018-11-25] MEDS: PRASUGREL HCL 10 MG TAB PO SCH (09:53)
[2018-11-25] MEDS: predniSONE 10 MG TAB PO SCH ×3 (09:54→18:05)
[2018-11-25] MEDS: LOSARTAN POTASSIUM 25 MG TAB PO SCH (09:58)
[2018-11-25] MEDS ORDERED: IOPAMIDOL (ISOVUE 370) 100 ML BTL IV ONE (10:36)
--- NOTE | 2018-11-25 11:52 | CPEKG ---
Test Reason : OPEN Blood Pressure : / mmHG Vent. Rate : 072 BPM Atrial Rate : 072 BPM P-R Int : 142 ms QRS Dur : 094 ms QT Int : 376 ms P-R-T Axes : 053 -11 208 degrees QTc Int : 412 ms Sinus rhythm Diffuse NSTW changes/inversions--consider ischemia Confirmed by Marvin Mortensen ([id number]) on 11/25/2018 11:52:02 AM Referred By: Mickey Gomez Confirmed By:Marvin Mortensen
--- NOTE | 2018-11-25 12:50 | ASMTCMCOM ---
CM Note CM Note Notes: Pts case discussed w/ Gian, CHIEF CLOTH FINISHING RANGE OPERATOR and KAYCEE Galvan. Pt is a 67 y/o female admitted for a heart cath. Pt will most likely d/c independent when medically stable. No therapies ordered at this time. CM available for changes. Plan: Independent Date Signed: 11/25/2018 12:49 PM Electronically Signed By:CEASAR Forde
[2018-11-25] MEDS: APIXABAN 5 MG TAB PO SCH ×2 (13:15→20:24)
--- NOTE | 2018-11-25 14:08 | PDCARPN ---
Cardiology Progress Note Chief Complaint: Patient reports ongoing shortness of breath. Assessment/Plan: Assessment: 68-year-old female with history of atrial tachycardia, KRISTI (CPAP), hypertension , hyperlipidemia, ddf-xuyuppm-tdqydivjt diabetes, anemia, and hypogammaglobulinemia. Patient reporting ongoing SOB since late September of 2018. Had undergone multiple testing including MPI study showing no significant reversible deficit suggesting of ischemia (09/23/2018), ECHO 10/06/2018 noting normal LV systolic function with EF of 60%, and normal wall motion, mild diastolic dysfunction, trivial to mild MR, trivial TR with normal pulmonary pressures. 30 day monitoring showed average heart rate of 70 BPM, minimum 53 BPM maximum 102 BPM no significant arrhythmias. With ongoing symptoms despite significant workup, she underwent elective heart catheterization by Dr. Gomez on 11/24/2018. Finding stenosis in LAD/1st diagonal. 3 JOSIE implantation with an kissing balloon technique. Right heart catheterization noting RA of 4, RV 24 /2/4, PA 27/9/15, PAOP 8, CO 5.84, CI 3.22 11/25/2018: Patient reporting ongoing dyspnea on exertion despite recent JOSIE implantation. She reports no chest pain or pressure. Laboratories noting mild drop H&H to 10.3 in 33.4. T a he potassium 5.3, chloride 111, CO2 18, BUN 22, creatinine 1.1. CTA of chest done this morning, noting PEs in right upper and lower lobes. Peripheral right lower lobe consolidated, possibly related to atelectasis or infarct. Patient has maintained sinus rhythm, with no malignant arrhythmias or pauses throughout the night. Plan: 1. CAD: Status post PCI with 3 JOSIE implantation of the LAD and diagonal. No chest pain or pressure suggesting of ischemia overnight. Continue on current anti-platelet therapy aspirin and Effient. Due to recent PE discovering, and need for full anticoagulation, will reduce aspirin dose to 81 mg p.o. Q.day, in 1 months time, discontinue aspirin altogether, and have patient continue on Eliquis and Effient. Remains on beta-pema metoprolol. Secondary risk prevention with atorvastatin. 2. Pulmonary embolisms: New findings, potential cause of her ongoing SOB since September. Started on full anticoagulation of Eliquis. Dr. Gomez concerned with history of anemia and needing to be on DAPT due to recent JOSIE implant. Will start her on 5 mg p.o. Twice daily. Risk and benefits of full anticoagulation therapy explained to the patient and her , they verbalize understanding and are wanting to proceed. Plan on ultrasound of lower extremities. Will have her see Hematology in outpatient setting. 3. Hypertension: Blood pressure mildly low today. Will hold today's dose of losartan, continue on metoprolol, adjust as needed. 4. Hyperlipidemia: LDL on admission was 51. Continue on statin therapy. 5. Atrial tachycardia: None noted during hospitalization. 6. Chronic Anemia: H&H with mild drop after procedure. Will recheck CBC in a.m. 7. Depression: Continue on home medications. 8. Diabetes: Metformin on hold due to contrast for next 48 hr. Glucose this morning 103. 9. Code status: Patient is a full code. 10. DVT for prophylaxis: Patient started on Eliquis. Due to the patient with noted new diagnosis of PE, patient requiring to be on triple therapy for the next month, is we will plan for her to stay day 1 more night for observation. 11/25/18 14:04 Subjective: Patient reports ongoing shortness of breath, especially with exertion. She denies of any chest pressure or pain. Reports no palpitations, orthopnea, PND, lightheadedness, near-syncope or syncopal events. Reviewed/Discussed With: other (Dr Gomez) Objective: Vital Signs (8 Hrs) Temp Pulse Resp BP Pulse Ox 11/25/18 11:22 36.7 C 98 18 98/60 L 99 11/25/18 09:53 87 102/51 L 11/25/18 07:24 36.4 C 90 12 94/65 L 99 Intake/Output (24 Hrs) 11/24/18 11/25/18 11/26/18 05:59 05:59 05:59 Intake Total 2200 Balance 2200 Intake: Oral (ml) 250 IV Intake (ml) 950 IV Infused (ml) 1000 Ns 1,000 ml @ 100 mls/hr 1000 IV CONT MARK Rx#: [id number] Other: Weight 68 kg Number of Voids Toilet 3 Result Diagrams: 11/25/18 04:00 11/25/18 04:00 - Physical Exam Constitutional: no apparent distress Ears, Nose, Mouth, Throat: moist mucous membranes Cardiovascular: regular rate and rhythm, no murmurs, no rubs, no gallops, pulses symmetric bilat, No jugular vein distention, No carotid bruit Peripheral Pulses: 1+: dorsalis-pedis (R), dorsalis-pedis (L), 2+: carotid (R), carotid (L) Respiratory: other (Lungs are clear but diminished in bases bilateral. No rhonchi, rales, or wheezing noted.) Gastrointestinal: normoactive bowel sounds Skin: warm, no edema, other (Right groin site causing her insertion of testing, no redness, swelling or drainage, or ecchymosis. No auscultated bruits or size. ) Neurologic: AAOx3 Psychiatric: cooperative, interactive, following commands ICD10 Worksheet Patient Problems: Problems Problem Status Onset Acute renal failure Acute Acute hyperkalemia Acute PSVT (paroxysmal supraventricular tachycardia) Acute
[2018-11-25] MEDS ORDERED: THROMBIN (BOVINE) 5,000 UNIT VIAL TP ONE (15:30)
[2018-11-25] MEDS ORDERED: LIDOCAINE 1% 300 MG/30 ML SDV ONE (15:30)
--- NOTE | 2018-11-25 16:31 | PDMN ---
Medical Necessity Medical necessity: Change to IP as of 11/25/18, per [employer]ATOR & MCG M-290; los >2 mn for ongoing management of pulmonary embolism w/ongoing dyspnea on exertion s/p PCI; requiring further workup/monitoring & med management; hx anemia
[2018-11-25] MEDS: LURASIDONE HCL 20 MG TAB PO SCH (21:00)
[2018-11-26] MEDS: buPROPion XL 150 MG TAB PO SCH (03:42)
[2018-11-26] MEDS: DIVALPROEX NA 500 MG TAB PO SCH ×2 (03:43→09:19)
[2018-11-26] MEDS: LEVOTHYROXINE 75 MCG TAB PO SCH (03:43)
[2018-11-26 04:41] LABS: PLATELET COUNT 228 10^3/uL (150-400)
[2018-11-26] MEDS ORDERED: ASPIRIN EC 81 MG TAB PO SCH (09:00)
[2018-11-26] MEDS: MYCOPHENOLATE MOFETIL 250 MG CAP PO SCH (09:20)
[2018-11-26] MEDS: APIXABAN 5 MG TAB PO SCH (09:20)
[2018-11-26] MEDS: predniSONE 10 MG TAB PO SCH (09:20)
[2018-11-26] MEDS: ATORVASTATIN CALCIUM 20 MG TAB PO SCH (09:20)
[2018-11-26] MEDS: PRASUGREL HCL 10 MG TAB PO SCH (09:20)
[2018-11-26 09:21] VITALS: BP 119/65
[2018-11-26] MEDS: METOPROLOL TARTRATE 50 MG TAB PO SCH (09:21)
--- NOTE | 2018-11-26 10:07 | ASMTDCNOTE ---
Case Management Discharge Discharge Order Complete? Answers: Yes Patient to Obtain Answers: via Family Medications Transportation Arranged Answers: Family/Friends Transport will Pick (Date 11/26/2018 12:00 AM & Time) Family Notified Answers: Yes Notes: by pt Discharge Comments Notes: Spoke with pt's RN. Pt to discharge home independently with support from who will provide transportation and help obtain medications. Presented pt with coupon for 30 free trial of Elliquis. No further CM needs noted at this time. CM available should needs change. Date Signed: 11/26/2018 10:06 AM Electronically Signed By:Barbra Yoon
--- NOTE | 2018-11-26 10:10 | ASMTLACE ---
JOHN PAULE Length of stay for Answers: 2 days current admission Acuity / Level of Answers: Yes Care: Did the patient have an inpatient admission? Comorbidities - select Answers: Coronary Artery Disease all that apply Other Notes: PE, psuedoaneurym # of Emergency department Answers: 3-4 visits in the last 6 months Score: 11 Date Signed: 11/26/2018 10:09 AM Electronically Signed By:Barbra Yoon
[2018-11-26] MEDS: LOSARTAN POTASSIUM 25 MG TAB PO SCH (10:50)
--- NOTE | 2018-11-26 11:02 | ASDISCHSUM ---
Discharge Information Plan Status:Home with No Needs Medically Cleared to Leave:11/25/2018 Discharge Date:11/25/2018 CM D/C Disposition:Home, Routine, Self-Care ADT D/C Disposition:Home, Routine, Self-Care Projected Discharge Date:11/25/2018 Transportation at D/C:Family Discharge Delay Reason: Follow-Up Date:11/25/2018 Discharge Slot: Final Diagnosis:Angina, SOB, PEs, pseudoanyeurism Placement Information Patient Contact Information Contact Name:JUANA Relationship: Address:[address] [place] City:[place] Alternate Phone: State/Zip Code:[place] [address] Email: Financial Information Financial Class:Medicare Primary Plan Desc:MEDICARE OUTPATIENT Primary Plan Number:[id number] Secondary Plan Desc:[employer]/MDR SUPPLEMENT Secondary Plan Number:[id number] Assessment Information [facility] CM Progress Note CM Note CM Note Notes: Pts case discussed w/ EDILSON Springer and KAYCEE Galvan. Pt is a 67 y/o female admitted for a heart cath. Pt will most likely d/c independent when medically stable. No therapies ordered at this time. CM available for changes. Plan: Independent Date Signed: 11/25/2018 12:49 PM Electronically Signed By:CEASAR Forde Case Management Discharge Plan Note Case Management Discharge Discharge Order Complete? Answers: Yes Patient to Obtain Answers: via Family Medications Transportation Arranged Answers: Family/Friends Transport will Pick (Date 11/26/2018 12:00 AM & Time) Family Notified Answers: Yes Notes: by pt Discharge Comments Notes: Spoke with pt's RN. Pt to discharge home independently with support from who will provide transportation and help obtain medications. Presented pt with coupon for 30 free trial of Elliquis. No further CM needs noted at this time. CM available should needs change. Date Signed: 11/26/2018 10:06 AM Electronically Signed By:Barbra Yoon LACE LACE Length of stay for Answers: 2 days current admission Acuity / Level of Answers: Yes Care: Did the patient have an inpatient admission? Comorbidities - select Answers: Coronary Artery Disease all that apply Other Notes: PE, psuedoaneurym # of Emergency department Answers: 3-4 visits in the last 6 months Score: 11 Date Signed: 11/26/2018 10:09 AM Electronically Signed By:Barbra Yoon Intervention Information Intervention Type:*IM-Signed Date of Service:11/26/2018 11:01 AM Patient Type:Inpatient Staff Member:Barbra Yoon Hours: Discipline:Accreditation Specialist Severity: Comment:
--- NOTE | 2018-11-28 18:03 | GDS ---
[f rep st] DISCHARGE SUMMARY DISCHARGE DIAGNOSES: 1. Fatigue and dyspnea, status post cardiac catheterization and percutaneous coronary intervention w ith 3 drug-eluting stents to the left anterior descending and diagonal systems. 2. Pulmonary embolism found on CT of chest for evaluation of ongoing dyspnea despite percutaneous co ronary intervention. 3. Left heart catheterization complication of a pseudoaneurysm, status post repair with thrombin inj ection. 4. History of atrial tachycardia. 5. History of obstructive sleep apnea, on CPAP. 6. History of hypertension. 7. History of qes-iufnqjl-xtpbqriyb diabetes mellitus. 8. History of anemia. 9. History of hypogammaglobulinemia. PROCEDURES: 1. 11/24/2018, right and left heart catheterization. Right heart cath findings with PA pressure of 27/9 with a mean of 15 with cardiac output of 5.84, right atrial pressures of 4/2 with a mean of 1, R V pressure of 24. Left heart catheterization showing normal left main. The LAD had a 90% ostial les ion at the diagonal. The LAD was found to have a 65% stenosis at the takeoff of the diagonal. LVEDP of 10, EF of 65. Circumflex and RCA have no evidence of flow-limiting disease. PCI of the ostial d iagonal disease was undertaken. The patient was stented in the ostial LAD which caused plaque shifti ng. Kissing balloon angioplasty therefore was performed. Please see cath report for complete detail s. 2. 11/25/2018, CTA of chest which showed segmental and subsegmental pulmonary embolism involving the right upper and lower lobes. 3. 11/25/2018, pseudoaneurysm repair. 4. 11/25/2018, bilateral lower extremity Dopplers which showed no evidence of DVT. BRIEF HISTORY: Please see dictated H and P from our office for complete details. In brief, the roseanna ent is a 68-year-old female who has had dyspnea since at least September. She has undergone multiple cardiac testing. Her MPI showed no reversible defects but, due to her ongoing symptoms, there was co ncern of balanced ischemia. She therefore proceed to right and left heart catheterization with resul ts as above. HOSPITAL COURSE BY PROBLEM: 1. Dyspnea. She proceeded to PCI. Despite PCI, she had ongoing shortness of breath. She therefore proceeded to a CTA of her chest, which showed the right upper and lower lobe PEs. 2. Pulmonary emboli. She has been started on Eliquis due to a need for antiplatelet therapy. She w ill be started on lower dosing at 5 mg p.o. b.i.d. She is advised on bleeding risk. 3. CAD. She had obstructive disease involving her LAD diagonal system. She is status post PTCA and stenting. She has been started on Effient and aspirin. The aspirin is dosed at 81 mg p.o. daily. After 1 month's therapy of this, her aspirin may be discontinued. 4. Pseudoaneurysm. She is status post repair. She has no groin pain, and groin site appears stable . Groin precautions were reviewed with her today. 5. Anemia. She did have a slight decrease in her H and H postprocedurally. This may be evaluated a nd monitored in the outpatient setting. 6. Type 2 diabetes mellitus. Her metformin has been on hold and will be restarted 48 hours postproc edurally. 7. Hypertension. Her blood pressures have been low. Her losartan has been on hold and will be cont inued to be held. PHYSICAL EXAM: VITAL SIGNS: On day of discharge, blood pressure 119/65, heart rate of 65, respirati ons 12, O2 saturation of 98%, temp of 97.5 degrees Fahrenheit, heart rate of 64. GENERAL: She is pl easant female in no apparent distress. HEAD: Normocephalic, atraumatic. EYES: Without scleral ict erus. She has some mild conjunctival pallor. HEART: Regular rate and rhythm. LUNGS: Clear. EXTR EMITIES: Right groin site with minimal ecchymosis. No bruit auscultated. She has 2+ PT and DP puls es bilaterally. LABORATORY DATA: CBC with WBC 8.71, hemoglobin 9.9, hematocrit 32, platelet count 228. BMP: Sodium 138, potassium 4.8, chloride 110, CO2 19, creatinine 1, BUN 16, glucose 105, triglycerides 165, tota l cholesterol 165, LDL 51, HDL of 81. RESULTS PENDING: None. DIET: Cardiac diet recommended. ACTIVITY: Groin precautions were reviewed. DISCHARGE MEDICATIONS: Please see med reconciliation. She will be sent home on her Ritalin, Latuda, Depakote, simvastatin, levothyroxine, bupropion, Gamunex infusion, estradiol, metoprolol tartrate, p rednisone, CellCept. Her losartan is being held. She has been started on apixaban 5 mg p.o. daily, prasugrel 10 mg p.o. daily, and aspirin 81 mg p.o. daily. She is to resume her metformin on 11/28/19 19. DISCHARGE INSTRUCTIONS: 1. Groin precautions. 2. Follow up as scheduled. 3. Consider cardiac rehab. Please note that greater than 35 minutes was spent on discharge and coordination of care. /[id number]/MODL
== END 2018-11-26 11:40 | disposition home or self-care (01) | DRG 982 ==
LOC: FCATH 07:35 → F2W 12:57 → OBSVTOIN 11-25 16:18
PROVIDERS: ADMIT Internal Medicine Cardiovascular Disease; ATTEND Internal Medicine Cardiovascular Disease
PROC: 4A023N8 Measurement of Cardiac Sampling and Pressure, Bilateral, Percutaneous Approach (ICD-10-PCS; principal; 2018-11-24)
PROC: 027034Z Dilation of Coronary Artery, One Artery with Drug-eluting Intraluminal Device, Percutaneous Approach (ICD-10-PCS; principal; 2018-11-24)
PROC: 3E05317 Introduction of Other Thrombolytic into Peripheral Artery, Percutaneous Approach (ICD-10-PCS; 2018-11-25)
DX: I26.99 Other pulmonary embolism without acute cor pulmonale (principal); I25.110 Atherosclerotic heart disease of native coronary artery with unstable angina pectoris; I72.4 Aneurysm of artery of lower extremity; R00.0 Tachycardia, unspecified; G47.33 Obstructive sleep apnea (adult) (pediatric); I10 Essential (primary) hypertension; E11.9 Type 2 diabetes mellitus without complications; D64.9 Anemia, unspecified; R06.00 Dyspnea, unspecified; E78.5 Hyperlipidemia, unspecified
CPT/HCPCS: C1725; C1753; C1760; C1769; C1874; C1887; C9600; C9601; J0583; J1644; J2250; J2270; J3010; J7512; Q9967

== ENCOUNTER 2018-12-01 09:21 | Inpatient (IN) | payer OTHER, MEDICARE | END 2018-12-06 15:10 | LOC: F2W 16:57 ==

== ENCOUNTER → 2019-01-25 | Outpatient (CLI) | payer OTHER, MEDICARE | DX: M19.071 Primary osteoarthritis, right ankle and foot (principal); M77.31 Calcaneal spur, right foot; M21.41 Flat foot [pes planus] (acquired), right foot ==

== ENCOUNTER 2019-02-07 09:31 | Inpatient (IN) | payer OTHER, MEDICARE ==
--- NOTE | 2019-02-07 10:09 | EDPHY ---
H & P Time Seen by Provider: 02/07/19 10:06 HPI/ROS: Chief complaint. Shortness of breath HPI. 60-year-old female presents emergency department with shortness of breath. Apparently she has had dyspnea on exertion for 5 months. She had cardiac stents and was diagnosed with PE. She continues to take Eliquis. She went to rehab for 3 and half weeks and has been improving. For the past week she has significant dyspnea on exertion. Denies denies chest pain. No fever cough. No unusual leg pain or swelling. No abdominal pain or vomiting or diarrhea. Patient has a bruise to the left chin that she says is from sleeping on her fist. Denies any other trauma ROS 10 systems were reviewed and negative with the exception of the elements mentioned in the history of present illness Past Medical/Surgical History: Diabetes, depression, bipolar illness, fibromyalgia, sleep apnea, coronary artery disease with stents, pulmonary embolus, acute renal failure Social History: , nonsmoker, no alcohol Smoking Status: Never smoked Physical Exam: General Appearance: Alert well-developed female mild distress vital signs are stable. O2 saturation on room air is 99% Eyes: Pupils equal and round no pallor or injection. ENT, Mouth: Mucous membranes are moist. Respiratory: There are no retractions, lungs are clear to auscultation. Cardiovascular: Regular rate and rhythm. Gastrointestinal: Abdomen is soft and nontender, no masses, bowel sounds normal. Neurological: Awake and alert, sensory and motor exams grossly normal. Skin: Bruise to the left chin Musculoskeletal: Neck is supple nontender. Extremities symmetrical, full range of motion. Psychiatric: Patient is oriented X 3, there is no agitation. Constitutional: Initial Vital Signs Temperature (C) 36.7 C 02/07/19 09:41 Heart Rate 93 02/07/19 09:41 Respiratory Rate 18 02/07/19 09:41 Blood Pressure 134/82 H 02/07/19 09:41 O2 Sat (%) 99 02/07/19 09:41 O2 Delivery Mode Room Air Allergies/Adverse Reactions: ciprofloxacin [From Cipro] Allergy (Severe, Verified 02/07/19 09:41) Other-Enter Comments ciprofloxacin HCl [From Cipro] Allergy (Severe, Verified 02/07/19 09:41) Other-Enter Comments levofloxacin [From Levaquin] Allergy (Severe, Verified 02/07/19 09:41) Other-Enter Comments Penicillins Allergy (Severe, Verified 02/07/19 09:41) Anaphylaxis erythromycin lactobionate [From Erythrocin] Allergy (Unknown, Verified 02/07/19 09:41) Other-Enter Comments Sulfa (Sulfonamide Antibiotics) Allergy (Unknown, Verified 02/07/19 09:41) Other-Enter Comments adhesive Allergy (Verified 02/07/19 09:41) lanolin Allergy (Verified 02/07/19 09:41) tetanus immune globulin Allergy (Verified 02/07/19 09:41) Home Medications: Medication Instructions Recorded Divalproex [Depakote] 500 mg PO QID@04,08,12,16 09/01/17 Levothyroxine [Synthroid 75 mcg 75 mcg PO DAILY@04 09/01/17 (*)] Lurasidone HCl [Latuda] 60 mg PO HS 09/01/17 Methylphenidate HCl [Ritalin 20mg 20 mg PO QID@04,08,12,16 09/01/17 (*)] buPROPion XL [Wellbutrin 150mg XL] 450 mg PO DAILY@04 09/01/17 EPINEPHrine [Epipen 0.3 MG] 0.3 mg IM ONCE PRN 10/20/17 Estradiol [Estrace Vaginal (*)] 0.125 gm VAG HS 10/14/18 Simvastatin 40 mg PO DAILY 10/14/18 Metoprolol Tartrate [Lopressor 50 50 mg PO BID 11/17/18 mg (*)] metFORMIN HCL [Glucophage 500 mg 500 mg PO BIDMEAL 11/17/18 (*)] predniSONE 10 mg PO TID@08,12,18 11/17/18 Nitroglycerin 0.4 mg SL Q5M PRN #1 btl 11/25/18 Prasugrel HCl [Effient 10mg (*)] 10 mg PO DAILY #30 tab 11/25/18 Apixaban [Eliquis] 5 mg PO BID #60 tab 11/26/18 Modafinil [Provigil] 200 mg PO DAILY 12/01/18 Immune Globul G/Gly/Iga Avg 46 40 gm IJ Q30D 12/03/18 [Gamunex-C 40 Gram/400 ml Vial] Doxycycline Hyclate [Vibramycin 100 mg PO BID #4 cap 12/06/18 100 MG (*)] Medical Decision Making - Diagnostics EKG Interpretation: EKG interpreted by me shows normal sinus rhythm normal interval. Left axis deviation. QRS is otherwise normal. There is ST depression inferiorly. There is ST depression and T-wave inversion in V2 through V5. No arrhythmia. The rate is 93. There is more T-wave depression inferiorly than previous EKG in December 2018. The anterior lateral T-wave inversion was present previously Imaging Results: Imaging Impressions Chest X-Ray 02/07/19 10:10 Impression: 1. Chest negative for acute abnormality. 2. See above report for additional findings. Chest/Thorax CTA 02/07/19 11:02 Impression: 1. There is no evidence of pulmonary artery thromboembolic disease, with interim resolution of previous segmental/subsegmental clot in the right upper and lower lobe pulmonary arteries noted on 11/25/2018. 2. 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 3. Mild LAD coronary artery atherosclerotic calcification. Findings were discussed with JANES LIVINGSTON MD at 12:44, on 02/07/2019. Angiogram chest shows no evidence of PE. Residual pulmonary infarct. LAD calcification Procedures: IV normal saline, monitor ED Course/Re-evaluation: Re-evaluation patient is stable. Patient and I discussed imaging lab EKG findings. We discussed treatment plan including recommendation for admission because of EKG changes. She expresses understanding and agreement I consulted discussed case with Dr. Hoskins, hospitalist, who agrees to the admission Differential Diagnosis: Patient has dyspnea on exertion with recent pulmonary embolus. No evidence for PE today. However she does have EKG changes. Plan is admission - Data Points Laboratory Results: Laboratory Results 02/07/19 10:10 02/07/19 10:10 02/07/19 02/07/19 02/07/19 11:00 10:11 10:10 WBC RBC Hgb Hct MCV MCH MCHC RDW Plt Count MPV Neut % (Auto) Lymph % (Auto) [place] % (Auto) Eos % (Auto) Baso % (Auto) Nucleat RBC Rel Count Absolute Neuts (auto) Absolute Lymphs (auto) Absolute Monos (auto) Absolute Eos (auto) Absolute Basos (auto) Absolute Nucleated RBC Immature Gran % Seg Neutrophils % Band Neutrophils % Lymphocytes % Monocytes % Eosinophils % Basophils % Metamyelocytes % Myelocytes % Promyelocytes % Blast Cells % Immature Gran # Absolute Seg Neuts Absolute Band Neuts Absolute Lymphocytes Absolute Monocytes Absolute Eosinophils Absolute Basophils Absolute Metamyelocyte Absolute Myelocytes Absolute Promyelocytes Absolute Plasma Cells Nucleated RBCs Absolute Blast Cells Plasma Cells % Platelet Estimate Polychromasia Oval Macrocytes PT 12.6 SEC SEC (12.0-15.0) INR 0.98 (0.83-1.16) APTT 22.4 SEC L SEC (23.0-38.0) D-Dimer 0.57 ug/mLFEU H ug/mLFEU (0.00-0.50) Sodium 137 mEq/L mEq/L (135-145) Potassium 4.4 mEq/L mEq/L (3.5-5.2) Chloride 107 mEq/L mEq/L (97-110) Carbon Dioxide 17 mEq/l L mEq/l (22-31) Anion Gap 14 mEq/L mEq/L (6-14) BUN 25 mg/dL H mg/dL (7-23) Creatinine 1.2 mg/dL H mg/dL (0.6-1.0) Estimated GFR 45 Glucose 109 mg/dL H mg/dL (70-100) Calcium 10.0 mg/dL mg/dL (8.5-10.4) POC Troponin I 0.00 ng/mL ng/mL (0.00-0.08) NT-Pro-B Natriuret Pep 724 pg/mL H pg/mL (0-125) 02/07/19 10:10 WBC 10.34 10^3/uL H 10^3/uL (3.80-9.50) RBC 3.49 10^6/uL L 10^6/uL (4.18-5.33) Hgb 11.4 g/dL L g/dL (12.6-16.3) Hct 36.1 % L % (38.0-47.0) MCV 103.4 fL H fL (81.5-99.8) MCH 32.7 pg pg (27.9-34.1) MCHC 31.6 g/dL L g/dL (32.4-36.7) RDW 14.0 % % (11.5-15.2) Plt Count 284 10^3/uL 10^3/uL (150-400) MPV 10.8 fL fL (8.7-11.7) Neut % (Auto) Not Reported Lymph % (Auto) Not Reported [place] % (Auto) Not Reported Eos % (Auto) Not Reported Baso % (Auto) Not Reported Nucleat RBC Rel Count Not Reported Absolute Neuts (auto) Not Reported Absolute Lymphs (auto) Not Reported Absolute Monos (auto) Not Reported Absolute Eos (auto) Not Reported Absolute Basos (auto) Not Reported Absolute Nucleated RBC Not Reported Immature Gran % Not Reported Seg Neutrophils % 74.5 % % Band Neutrophils % 2.0 % % Lymphocytes % 17.3 % % Monocytes % 3.1 % % Eosinophils % 0.0 % % Basophils % 0.0 % % Metamyelocytes % 3.1 % % Myelocytes % 0.0 % % Promyelocytes % 0.0 % % Blast Cells % 0.0 % % Immature Gran # Not Reported Absolute Seg Neuts 7.70 10^3/uL H 10^3/uL (1.70-6.50) Absolute Band Neuts 0.21 10^3/uL 10^3/uL (0.00-0.70) Absolute Lymphocytes 1.79 10^3/uL 10^3/uL (1.00-3.00) Absolute Monocytes 0.32 10^3/uL 10^3/uL (0.30-0.80) Absolute Eosinophils 0.00 10^3/uL L 10^3/uL (0.03-0.40) Absolute Basophils 0.00 10^3/uL L 10^3/uL (0.02-0.10) Absolute Metamyelocyte 0.32 10^3/mL H 10^3/mL (0.00-0.00) Absolute Myelocytes 0.00 10^3/mL 10^3/mL (0.00-0.00) Absolute Promyelocytes 0.00 10^3/uL 10^3/uL (0.00-0.00) Absolute Plasma Cells 0.00 10^3/uL 10^3/uL (0.00-0.00) Nucleated RBCs 0 /100 WBC /100 WBC (0-0) Absolute Blast Cells 0.00 10^3/uL 10^3/uL (0.00-0.00) Plasma Cells % 0.0 % % Platelet Estimate ADEQUATE (ADEQ) Polychromasia 1+ H Oval Macrocytes 1+ H PT INR APTT D-Dimer Sodium Potassium Chloride Carbon Dioxide Anion Gap BUN Creatinine Estimated GFR Glucose Calcium POC Troponin I NT-Pro-B Natriuret Pep Medications Given: Discontinued Medications Sodium Chloride (Ns) 1,000 mls @ 0 mls/hr IV EDNOW ONE; Wide Open PRN Reason: Protocol Stop: 02/07/19 11:05 Last Admin: 02/07/19 11:07 Dose: 1,000 mls Point of Care Test Results: Chemistry 02/07/19 10:11 POC Troponin I 0.00 ng/mL ng/mL (0.00-0.08) Departure - Departure Disposition: Home, Routine, Self-Care Clinical Impression: Acute electrocardiogram changes Dyspnea Qualifiers: Dyspnea type: dyspnea on exertion Qualified Code(s): R06.09 - Other forms of dyspnea Condition: Fair Referrals: Ashley Burns MD [Primary Care Provider] - As per Instructions
[2019-02-07 10:22] LABS: PLATELET COUNT 284 10^3/uL (150-400)
--- NOTE | 2019-02-07 10:26 | CPEKG ---
Test Reason : OPEN Blood Pressure : / mmHG Vent. Rate : 093 BPM Atrial Rate : 091 BPM P-R Int : 147 ms QRS Dur : 095 ms QT Int : 360 ms P-R-T Axes : 039 -16 262 degrees QTc Int : 448 ms Sinus arrhythmia Borderline left axis deviation Repol abnrm suggests ischemia, anterolateral Confirmed by Erik Jaffe ([id number]) on 02/07/2019 10:25:59 AM Referred By: PHYSICIAN ED Confirmed By:Erik Jaffe
[2019-02-07] MEDS ORDERED: NS 1,000 ML IV ONE (11:04)
[2019-02-07] MEDS ORDERED: IOPAMIDOL (ISOVUE 370) 100 ML BTL IV ONE (11:20)
[2019-02-07 11:26] LABS: INR 0.98 (0.83-1.16); PROTIME(PATIENT) 12.6 SEC (12.0-15.0)
[2019-02-07] MEDS ORDERED: ACETAMINOPHEN 325 MG TAB PO PRN (15:31)
[2019-02-07] MEDS ORDERED: ONDANSETRON 4 MG/2 ML VIAL IVP PRN (15:31)
[2019-02-07] MEDS ORDERED: ONDANSETRON DISINTEGRATING 4 MG TAB PO PRN (15:31)
[2019-02-07] MEDS ORDERED: NITROGLYCERIN 0.4 MG BTL SL PRN (15:36)
--- NOTE | 2019-02-07 16:19 | PDGENHP ---
History and Physical - Chief Complaint SOB - History of Present Illness 68 yo female with complex recent past medical history presents to ED with dyspnea on exertion. She was diagnosed with interstitial nephritis earlier this year and treated with Cellcept and Prednisone. Since then she developed worsening shortness of breath and was diagnosed with PE and started Eliquis. She was admitted in 11/2018 and a heart cath revealed CAD, requiring complex bifurcation stenting of the LAD and diagonal, along with an ostial LAD stent for dissection repair. She continued to have severe SOB and dyspnea. A recurrent admission revealed worsening anemia, with heme negative stool and underwent a bone marrow biopsy, results of which are not currently known by me. Ultimately, her Cellcept was discontinued as there was concern this may be causing untoward side effects including dyspnea. She was noted to be severely deconditioned at her last hospital discharge in 12/2018 and spent 3+ weeks in SNF. She has been home for several weeks, but over the past 5 days has had increased SOB with activity. She has poor endurance, needs to frequently stop and rest. No chest pain or pressure. She had an appt at [facility] 2018 and was started on Lasix 40 mg daily for LE edema and elevated BNP. This improved her edema and the Lasix was discontinued. She is not sure if her SOB worsened since stopping her Lasix. In the ED, CTA is negative for PE, but pulmonary infarct is noted. EKG shows similar ST segment changes and T wave inversions as previous EKG's have shown. Troponin is negative. BNP is down to 700 from 2K. She is admitted for further evaluation. History Information - Allergies/Home Medication List Allergies/Adverse Reactions: ciprofloxacin [From Cipro] Allergy (Severe, Verified 02/07/19 09:41) Other-Enter Comments ciprofloxacin HCl [From Cipro] Allergy (Severe, Verified 02/07/19 09:41) Other-Enter Comments levofloxacin [From Levaquin] Allergy (Severe, Verified 02/07/19 09:41) Other-Enter Comments Penicillins Allergy (Severe, Verified 02/07/19 09:41) Anaphylaxis erythromycin lactobionate [From Erythrocin] Allergy (Unknown, Verified 02/07/19 09:41) Other-Enter Comments Sulfa (Sulfonamide Antibiotics) Allergy (Unknown, Verified 02/07/19 09:41) Other-Enter Comments adhesive Allergy (Verified 02/07/19 09:41) lanolin Allergy (Verified 02/07/19 09:41) tetanus immune globulin Allergy (Verified 02/07/19 09:41) Home Medications: Divalproex [Depakote] 500 mg PO QID@,,,16 09/01/17 [Last Taken 02/07/19 08 :00] Levothyroxine [Synthroid 75 mcg (*)] 75 mcg PO DAILY@09/01/17 [Last Taken 04/21] Methylphenidate HCl [Ritalin 20mg (*)] 20 mg PO QID@,,,16 09/01/17 [Last Taken 02/07/19 08:00] buPROPion XL [Wellbutrin 150mg XL] 450 mg PO DAILY@09/01/17 [Last Taken 02/07] Estradiol [Estrace Vaginal (*)] 0.125 gm VG DAILY 10/14/18 [Last Taken 11/30/18] Metoprolol Tartrate [Lopressor 50 mg (*)] 75 mg PO BID 11/17/18 [Last Taken 04/21] predniSONE 15 mg PO DAILY 11/17/18 [Last Taken 02/07/19] Acetaminophen [Tylenol 325mg (*)] 325 mg PO DAILY PRN 02/07/19 [Last Taken Unknown] I have personally reviewed and updated: family history, medical history, social history, surgical history - Past Medical History Additional medical history: Hypothyroidism, Atrial tachycardia. Hypogammaglobulinemia. CVID on monthly IVIG. Anemia. CAD s/p LAD and diagonal stents 11/2018. H/O PE. DM a1c 6.2% 02/2019. Chronic interstitial nephritis. CKD baseline Cr ~1.2 - Surgical History Reports: coronary stent - Family History Positive for: non-pertinent - Social History Smoking Status: Never smoked Alcohol Use: None Drug Use: None Additional social history: Lives at home independently, just spent 3 1/2 weeks at SNF due to severe deconditioning Review of Systems Review of Systems: ROS: 10pt was reviewed & negative except for what was stated in HPI & below Physical Exam Physical Exam: Temp Pulse Resp BP Pulse Ox 36.7 C 81 20 123/77 H 97 02/07/19 15:23 02/07/19 15:23 02/07/19 15:23 02/07/19 15:23 02/07/19 15:23 Constitutional: no apparent distress Eyes: PERRL Ears, Nose, Mouth, Throat: moist mucous membranes Cardiovascular: regular rate and rhythym Respiratory: no respiratory distress, clear to auscultation Gastrointestinal: normoactive bowel sounds, soft, non-tender abdomen Skin: warm Musculoskeletal: full muscle strength Neurologic: AAOx3 Psychiatric: interacting appropriately Lab Data & Imaging Review 02/07/19 10:10 02/07/19 10:10 WBC 10.34 10^3/uL (3.80-9.50) H 02/07/19 10:10 RBC 3.49 10^6/uL (4.18-5.33) L 02/07/19 10:10 Hgb 11.4 g/dL (12.6-16.3) L 02/07/19 10:10 Hct 36.1 % (38.0-47.0) L 02/07/19 10:10 MCV 103.4 fL (81.5-99.8) H 02/07/19 10:10 MCH 32.7 pg (27.9-34.1) 02/07/19 10:10 MCHC 31.6 g/dL (32.4-36.7) L 02/07/19 10:10 RDW 14.0 % (11.5-15.2) 02/07/19 10:10 Plt Count 284 10^3/uL (150-400) 02/07/19 10:10 MPV 10.8 fL (8.7-11.7) 02/07/19 10:10 Neut % (Auto) Not Reported 02/07/19 10:10 Lymph % (Auto) Not Reported 02/07/19 10:10 [place] % (Auto) Not Reported 02/07/19 10:10 Eos % (Auto) Not Reported 02/07/19 10:10 Baso % (Auto) Not Reported 02/07/19 10:10 Nucleat RBC Rel Count Not Reported 02/07/19 10:10 Absolute Neuts (auto) Not Reported 02/07/19 10:10 Absolute Lymphs (auto) Not Reported 02/07/19 10:10 Absolute Monos (auto) Not Reported 02/07/19 10:10 Absolute Eos (auto) Not Reported 02/07/19 10:10 Absolute Basos (auto) Not Reported 02/07/19 10:10 Absolute Nucleated RBC Not Reported 02/07/19 10:10 Immature Gran % Not Reported 02/07/19 10:10 Seg Neutrophils % 74.5 % 02/07/19 10:10 Band Neutrophils % 2.0 % 02/07/19 10:10 Lymphocytes % 17.3 % 02/07/19 10:10 Monocytes % 3.1 % 02/07/19 10:10 Eosinophils % 0.0 % 02/07/19 10:10 Basophils % 0.0 % 02/07/19 10:10 Metamyelocytes % 3.1 % 02/07/19 10:10 Myelocytes % 0.0 % 02/07/19 10:10 Promyelocytes % 0.0 % 02/07/19 10:10 Blast Cells % 0.0 % 02/07/19 10:10 Immature Gran # Not Reported 02/07/19 10:10 Absolute Seg Neuts 7.70 10^3/uL (1.70-6.50) H 02/07/19 10:10 Absolute Band Neuts 0.21 10^3/uL (0.00-0.70) 02/07/19 10:10 Absolute Lymphocytes 1.79 10^3/uL (1.00-3.00) 02/07/19 10:10 Absolute Monocytes 0.32 10^3/uL (0.30-0.80) 02/07/19 10:10 Absolute Eosinophils 0.00 10^3/uL (0.03-0.40) L 02/07/19 10:10 Absolute Basophils 0.00 10^3/uL (0.02-0.10) L 02/07/19 10:10 Absolute Metamyelocyte 0.32 10^3/mL (0.00-0.00) H 02/07/19 10:10 Absolute Myelocytes 0.00 10^3/mL (0.00-0.00) 02/07/19 10:10 Absolute Promyelocytes 0.00 10^3/uL (0.00-0.00) 02/07/19 10:10 Absolute Plasma Cells 0.00 10^3/uL (0.00-0.00) 02/07/19 10:10 Nucleated RBCs 0 /100 WBC (0-0) 02/07/19 10:10 Absolute Blast Cells 0.00 10^3/uL (0.00-0.00) 02/07/19 10:10 Plasma Cells % 0.0 % 02/07/19 10:10 Platelet Estimate ADEQUATE (ADEQ) 02/07/19 10:10 Polychromasia 1+ H 02/07/19 10:10 Oval Macrocytes 1+ H 02/07/19 10:10 PT 12.6 SEC (12.0-15.0) 02/07/19 11:00 INR 0.98 (0.83-1.16) 02/07/19 11:00 APTT 22.4 SEC (23.0-38.0) L 02/07/19 11:00 D-Dimer 0.57 ug/mLFEU (0.00-0.50) H 02/07/19 11:00 Sodium 137 mEq/L (135-145) 02/07/19 10:10 Potassium 4.4 mEq/L (3.5-5.2) 02/07/19 10:10 Chloride 107 mEq/L (97-110) 02/07/19 10:10 Carbon Dioxide 17 mEq/l (22-31) L 02/07/19 10:10 Anion Gap 14 mEq/L (6-14) 02/07/19 10:10 BUN 25 mg/dL (7-23) H 02/07/19 10:10 Creatinine 1.2 mg/dL (0.6-1.0) H 02/07/19 10:10 Estimated GFR 45 02/07/19 10:10 Glucose 109 mg/dL (70-100) H 02/07/19 10:10 Calcium 10.0 mg/dL (8.5-10.4) 02/07/19 10:10 POC Troponin I 0.00 ng/mL (0.00-0.08) 02/07/19 10:11 NT-Pro-B Natriuret Pep 724 pg/mL (0-125) H 02/07/19 10:10 Visualized and Interpreted Chest x-ray results: Yes Chest X-Ray results: no infiltrate Visualized and Interpreted EKG results: Yes EKG Interpretation: Positive for: ST depression, T waves inversion Assessment & Plan Assessment: Dyspnea on exertion - This has been an issue for >5 months, got better after rehab in December, now worse again. No hypoxemia, CTA neg for PE though pulmonary infarct from prior PE noted, trop neg. EKG is abnormal, but similar to prior EKGs with ST depression and T waves inversions. No CP. Echo from 10/2018 reviewed with cards, had nl EF 60%, mild diastolic dysfunction, mild MR, normal PA pressures. Also reviewed 11/2018 [facility]. She had complicated stenting procedure with bifurcation stent to LAD and diagonal, along with ostial LAD stent for a dissection repair. In addition, she was recently treated with Lasix for increased LE edema and BNP of 2K, she stopped this abt a week ago. No orthopnea or PND currently and CXR without e/o pulmonary edema. -trend trop -check echo to eval for WMA -cardiology consult requested for am, ?if this could represent anginal variant and if rpt cath is indicated -consider resuming low dose lasix and gauge effect H/O PE - Dx'd in 10/2018, on Eliquis. This has resolved per CTA today, but pulmonary infarct persists. CAD with multiple stents 11/2018 - now on Effient plus Eliquis, ASA was stopped per cardiology note from December. Again, she is CP free. Chronic macrocytic anemia - hgb is better, >11 so doubt this explains her worsening dyspnea. S/P BM biopsy in 12/2018. -will discuss case with heme/onc tomorrow to obtain BM biopsy results CVID - gets monthly IVIG CKD - baseline Cr recently seems to be around 1.2 Hypertension - adequate control Hyperlipidema - statin Hypogammaglobulinemia H/O DM - recent a1c 6.2% Full code Dispo - obs
[2019-02-07] MEDS: DIVALPROEX NA 500 MG TAB PO SCH (17:06)
[2019-02-07] MEDS: METOPROLOL TARTRATE 50 MG TAB PO SCH (20:50)
[2019-02-07] MEDS: APIXABAN 5 MG TAB PO SCH (20:51)
[2019-02-08] MEDS: DIVALPROEX NA 500 MG TAB PO SCH ×4 (04:57→15:11)
[2019-02-08] MEDS: buPROPion XL 150 MG TAB PO SCH (04:57)
[2019-02-08] MEDS: LEVOTHYROXINE 75 MCG TAB PO SCH (04:57)
[2019-02-08] MEDS: METOPROLOL TARTRATE 50 MG TAB PO SCH ×2 (08:34→20:55)
[2019-02-08] MEDS: APIXABAN 5 MG TAB PO SCH ×2 (08:34→20:54)
[2019-02-08] MEDS: PRASUGREL HCL 10 MG TAB PO SCH (08:34)
[2019-02-08] MEDS: predniSONE 10 MG TAB PO SCH (08:35)
--- NOTE | 2019-02-08 08:59 | ASMTLACE ---
MARIA A Acuity / Level of Answers: Yes Care: Did the patient have an inpatient admission? Comorbidities - select Answers: Coronary Artery Disease all that apply Diabetes (uncontrolled or controlled) Mild liver or renal disease Other Notes: PE; Hypothyroid # of Emergency department Answers: 5-8 visits in the last 6 months Social determinants Answers: Mental health diagnosis (anxiety, depression, pers onality disorders, etc.) Score: 16 Date Signed: 02/08/2019 08:58 AM Electronically Signed By:Hetal Alva
--- NOTE | 2019-02-08 09:54 | HOSPPROG ---
Hospitalist Progress Note Assessment/Plan: Dyspnea on exertion - This has been an issue for >5 months, got better after rehab in December, now worse again. No hypoxemia, CTA neg for PE though pulmonary infarct from prior PE noted, trop neg. EKG is abnormal, but similar to prior EKGs with ST depression and T waves inversions. No CP. Echo from 10/2018 reviewed with cards, had nl EF 60%, mild diastolic dysfunction, mild MR, normal PA pressures. Also reviewed 11/2018 [facility]. She had complicated stenting procedure with bifurcation stent to LAD and diagonal, along with ostial LAD stent for a dissection repair. In addition, she was recently treated with Lasix for increased LE edema and BNP of 2K, she stopped this abt a week ago. No orthopnea or PND currently and CXR without e/o pulmonary edema. -trrop neg x3 -echo with pericardial effusion, no WMA -nina stress test in am -will resume low dose lasix and gauge effect since her dyspnea seemed to get worse when she stopped the lasix Pericardial effusion - stranding noted, possibly old, no tamponade -send PATRICE, RF H/O PE - Dx'd in 10/2018, on Eliquis. This has resolved per CTA today, but pulmonary infarct persists. CAD with multiple stents 11/2018 - now on Effient plus Eliquis, ASA was stopped per cardiology note from December. She remains CP free. -echo plus stress test as above Atrial tachycardia - increase metoprolol per cards Chronic macrocytic anemia - hgb is better, >11 so doubt this explains her worsening dyspnea. S/P BM biopsy in 12/2018. -will discuss case with heme/onc tomorrow to obtain BM biopsy results CVID - gets monthly IVIG CKD - baseline Cr recently seems to be around 1.2 Hypertension - adequate control Hyperlipidema - statin Hypogammaglobulinemia H/O DM - recent a1c 6.2% Full code Dispo - change to inpt for ongoing cardiac / dyspnea eval, PT/OT evals Subjective: Pt feels a little better today. Denies SOB at rest. No CP. No fevers/chills. Objective: Vital Signs Temp Pulse Resp BP Pulse Ox 36.9 C 102 H 18 111/72 92 02/08/19 07:41 02/08/19 08:34 02/08/19 07:41 02/08/19 07:41 02/08/19 07:41 02/07/19 02/08/19 02/09/19 05:59 05:59 05:59 Intake Total 1300 Balance 1300 PT 12.6 SEC (12.0-15.0) 02/07/19 11:00 INR 0.98 (0.83-1.16) 02/07/19 11:00 - Physical Exam Constitutional: no apparent distress Eyes: PERRL Ears, Nose, Mouth, Throat: moist mucous membranes Cardiovascular: regular rate and rhythym Respiratory: no respiratory distress, clear to auscultation Gastrointestinal: normoactive bowel sounds, soft, non-tender abdomen Skin: warm, other (multiple eccchymosis and all extremities) Musculoskeletal: full muscle strength Neurologic: AAOx3 Psychiatric: interacting appropriately ICD10 Worksheet Patient Problems: Problems Problem Status Onset Acute electrocardiogram changes Acute Dyspnea Acute Acute hyperkalemia Acute Acute renal failure Acute Generalized weakness Acute Myopathic disease or syndrome Acute PSVT (paroxysmal supraventricular tachycardia) Acute
--- NOTE | 2019-02-08 10:26 | ECHO ---
[email or web address] [address] Main: [phone] Echocardiography Examination Name: KIRA LAWSON MR#: [id number] Study Date: 02/08/2019 Study Time: 08:34 AM Date of : 1950 Age: 68 year(s) Height: 172.7 cm (68 in.) Weight: 74.84 kg (165 lb.) BSA: 1.88 m2 Gender: Female Examination: Contrast: Image Quality: Rhythm: Heart Rate: BP: / Indication: Procedure Staff Referring Physician: Ic Design Manager: Reading Physician: Sebas Abbott MD Requesting Provider: Ordering Physician: Chante Rodriguez Measurements Chambers AV/MV Label Value Normal Value Label Value Normal Value LVDd, 2D 4.4 cm (3.9cm - 5.3cm) AV PGmean 3 mmHg LVDs, 2D 2.8 cm (2.1cm - 4cm) MV E Vmax 0.55 m/s IVSd, 2D 0.8 cm (0.6cm - 1.1cm) MV A Vmax 0.71 m/s LVPWd, 2D 0.8 cm MV E/A 0.77 LVEF, BP 65 % (55% - 70%) MV E/E' lateral 7.2 LVEF, 2D 66 % (54% - 74%) MV E/E' septal 8.5 (0.45 - 1.25) LA Volume, BP 30 ml (22ml - 52ml) MV E' septal 0.06 m/s LADs, 2D 3.2 cm (2.7cm - 3.8cm) MV E' lateral 0.08 m/s LAESV index, BP 16 ml/m2 MV E/E' mean 7.86 Additional Vessels MV E' mean 0.07 m/s Label Value Normal Value TV/PV AoAsc 3.3 cm Label Value Normal Value AoRoot, MM 3 cm (2.2cm - 3.7cm) RA Pressure 5 mmHg RVSP 28 mmHg TR Pmax 23 mmHg TR Vmax 2.42 m/s Conclusions (1) Left ventricular systolic ejection fraction was normal (65%) - normal wall motion - no LVH Patient: KIRA LAWSON Study Date: 02/08/2019 Page 1 of 2 08:34 AM (2) Normal RV size and systolic function (3) Normal atrial dimensions (4) Normal mitral valve (5) Trileaflet aortic valve without sclerosis or insufficiency (6) Grossly normal tricuspid valve (7) Grossly normal pulmonic valve (8) Normal ascending aorta (9) Old pericardial effusion is noted (proteinaceous material present) without tamponade physiology. Findings Left Ventricle: The ejection fraction, measured by Simpsons method, is 65 %. Tricuspid Valve: Right Ventricular systolic pressure is measured at 28 mmHg. Aorta: The aortic root size in M-mode measures 3.0 cm. The ascending aorta measures 3.3 cm. Aorta Measurements AoRoot, MM is 3.0 cm. (No Signature Object) Patient: KIRA LAWSON Study Date: 02/08/2019 Page 2 of 2 08:34 AM [id number]
[2019-02-08] MEDS: FUROSEMIDE 20 MG TAB PO SCH (11:16)
--- NOTE | 2019-02-08 14:13 | ASMTCMCOM ---
CM Note CM Note Notes: 02/08/2019 Case Management Note Pt admitted for EKG change and dyspnea on exertion. Met w/pt and to discuss d/c needs. Pt recently d/c from [facility] in [place] and wishes to avoid SNF re admit. Currently open with [facility] RN PT OT. PT and OT both visit twice a week. Faxed updates to [facility]. Case Management d/c poc: resume services from [facility]; RN PT OT Case Management to follow. Date Signed: 02/08/2019 02:11 PM Electronically Signed By:Sonia Cole RN
[2019-02-08] MEDS ORDERED: METOPROLOL TARTRATE 25 MG TAB PO ONE (15:06)
--- NOTE | 2019-02-08 15:06 | PDCARPN ---
Cardiology Progress Note Chief Complaint: dyspnea/fatigue Assessment/Plan: Assessment: 68 y/o F with a history of DM, HTN, HLP, CVID, interstitial nephritis, chronic anemia, KRISTI/CPAP, hypogammaglobulinemia, PEs and paroxysmal atrial tachycardia who intially presented complaining of severe TAYLOR, fatigue, and weight loss starting in later August. In November, she underwent a right and left heart cath which showed high grade stenosis of the principal diagonal and 65% LAD disease. Due to plaque shifting, a stent was then placed in the LAD. This c/b edge dissection and another stent was needed in the pLAD. Post-procedurally, her symptoms did not improve, and so she proceeded to chest CTA which showed multiple PEs and therefore she was started on Eliquis. Her heart cath was c/b by PSA which has now healed. She was hospitalized after this and was found to have severe anemia. She went to rehab from her hospitalizations and was discharged after 3.5 weeks. After rehab, she was feeling well and even walking around the block. About 2 weeks ago, she had worsening fatigue and dyspnea. She saw her PCP and had RBBB. She was seen in cardiology clinic and started on lasix, which resolved her edema. However, her dyspnea persisted and so her PCP had her stop Lasix. She is admitted 02/07 with ongoing dyspnea with minimal exertion. Echo from [facility] shows LVEF 65, RVSF wnl, nl MV, TV, PV and trivial AR. CTA lungs showed resolved PEs, residual e/o pulmonary infarct of the posterior- inferior RLL. Plan: #. dyspnea. This symptoms has been present since September. Query severe deconditioning. Agree with MPI to r/o ischemia though seems unlikely #. sinus and atrial tach: her resting HR is elevated in sinus and also has AT on telemetry increase Metoprolol to 100 BID we reviewed that she had previously been on Sotalol which was stopped as it was uncertain if that was etiology of her fatigue however, despite being off of Sotalol since October, no improvement will review with Dr. Childs #. RBBB: intermittently seen on ECGs #. CAD: No symptoms suggestive of angina continue Effient for PCI/ not on statin and last LDL 51 #. PE: resolved but has residual pulmonary infarct continue Eliquis per heme Has extensive bruising/ecchymosis on LE and arms. However, no bleeding. On Eliquis and Effient #. interstitial nephritis: Cr appears stable #. anemia: H/H appear stable/improving 02/08/19 14:44 Reviewed/Discussed With: hospitalist (Dr. Rodriguez) Objective: Vital Signs (8 Hrs) Temp Pulse Resp BP Pulse Ox 02/08/19 11:30 98 F 87 18 125/90 H 91 L 02/08/19 08:34 102 H 02/08/19 07:41 98.4 F 101 H 18 111/72 92 Intake/Output (24 Hrs) 02/07/19 02/08/19 02/09/19 05:59 05:59 05:59 Intake Total 1300 Balance 1300 Intake: Oral (ml) 300 IV Infused (ml) 1000 Other: Weight 74.843 kg Intake Quantity Yes Sufficient Number of Voids 2 Toilet 1 Result Diagrams: 02/07/19 10:10 02/07/19 10:10 Cardiac Labs: Cardiac Lab Results (72 Hrs) 02/07/19 17:16 Troponin I < 0.012 Telemetry: ST and AT - Physical Exam Constitutional: WDWN Eyes: anicteric sclera Ears, Nose, Mouth, Throat: moist mucous membranes Cardiovascular: regular rate and rhythm, No systolic murmur Respiratory: clear to auscultate bilat, no crackles Gastrointestinal: normoactive bowel sounds, no tenderness Skin: no edema, other (severe ecchymosis) Neurologic: AAOx3 Psychiatric: cooperative, interactive ICD10 Worksheet Patient Problems: Problems Problem Status Onset Dyspnea Acute Generalized weakness Acute Acute electrocardiogram changes Acute Myopathic disease or syndrome Acute Acute renal failure Acute Acute hyperkalemia Acute PSVT (paroxysmal supraventricular tachycardia) Acute
[2019-02-09] MEDS: DIVALPROEX NA 500 MG TAB PO SCH ×3 (03:38→14:01)
[2019-02-09] MEDS: buPROPion XL 150 MG TAB PO SCH (03:38)
[2019-02-09] MEDS: LEVOTHYROXINE 75 MCG TAB PO SCH (03:38)
[2019-02-09] MEDS: predniSONE 10 MG TAB PO SCH (08:54)
[2019-02-09] MEDS: METOPROLOL TARTRATE 50 MG TAB PO SCH (08:55)
[2019-02-09] MEDS: APIXABAN 5 MG TAB PO SCH (08:55)
[2019-02-09] MEDS: PRASUGREL HCL 10 MG TAB PO SCH (08:55)
[2019-02-09] MEDS ORDERED: REGADENOSON 0.4 MG/5 ML SYR IVP ONE (09:42)
[2019-02-09] MEDS: FUROSEMIDE 20 MG TAB PO SCH (11:25)
[2019-02-09 11:32] VITALS: BP 108/71
--- NOTE | 2019-02-09 13:28 | PDIAF ---
- Diagnosis Diagnosis: CAD, atrial tachycardia Code Status: Full Code - Medication Management Discharge Medications: electronically signed and located in the Home Medication List. PICC Care - Routine: N/A - Orders Services needed: Home Care, Registered Nurse, Master Transplant Immunologist, Physical Therapy, Occupational Therapy Home Care Face to Face: I certify that this patient was under my care and that I had the required [id number] encounter meeting the encounter requirements on the discharge day. My findings support the fact that the patient is homebound as defined in Home Care Face to Face Continued: CMS Chapter 7 Medicare Benefits Manual 30.1.1 , The condition of the patient is such that there exists a normal inability to leave home and consequently, leaving home would require a considerable and taxing effort. Diet Recommendation: cardiac -low fat low salt Additional Instructions: Resume low dose Lasix, this may be helping! Follow up with [facility] as planned. Also follow up with Dr. Shirley. - Labs/Radiology BMP Date: 02/13/19 (result to Annamarie Perdomo) - Follow Up Care Current Providers and Referrals: Ashley Burns MD [Primary Care Provider] - As per Instructions Annamarie Perdomo PA [Physician Auto Overhauler] - Samra Shirley MD [Medical Doctor] -
--- NOTE | 2019-02-09 13:34 | ASMTDCNOTE ---
Case Management Discharge Discharge Order Complete? Answers: Yes Patient to Obtain Answers: Independently Medications Transportation Arranged Answers: Family/Friends Faxed Final Orders Answers: Yes Family Notified Answers: Yes Discharge Comments Notes: Patient discharged home with Sebas. Home health services to resume through [facility]. Orders sent. Date Signed: 02/09/2019 01:33 PM Electronically Signed By:Merna Bauer RN
--- NOTE | 2019-02-09 13:59 | PDCARST ---
CAR Stress Test Results Type of Stress Test: Lexiscan Indication: fatigue/dyspnea Description of Procedure: After informed consent was obtained, pt was established to ECG, blood pressure, HR and oximetry monitoring. STRESS EKG AND HEMODYNAMIC DATA. Resting heart rate: 95 BPM. Resting ECG: SR. Resting blood pressure: 118/72 mmHg. O2 saturation at rest: 95%. Peak heart rate: 95 BPM. Peak blood pressure: 108/60 mmHg. Arrhythmias: none. Symptoms: The patient experienced no typical symptoms of angina during stress or recovery. Stress/Infusion ECG: No change in rhythm with no significant ST/T wave changes. Stress/infusion O2 saturation: 99% Impression: Uneventful Lexiscan infusion. Conclusion: Await nuclear imaging.
--- NOTE | 2019-02-09 15:37 | PDMN ---
Medical Necessity Medical necessity: Change to IP, as of 02/08/19, per & MCG MG-C Cardiology; los >2 mn for ongoing management of atrial tachycardia w/worsening dyspnea on exertion & fatigue; residual pulmonary infarct from prior PE noted on CTA; requiring further workup/monitoring & therapies; hx multiple comorbidites
--- NOTE | 2019-02-09 19:10 | GDS ---
[f rep st] DISCHARGE SUMMARY DISCHARGE DIAGNOSES: 1. Dyspnea on exertion, improved. 2. Pericardial effusion without evidence of tamponade. 3. History of pulmonary embolism. 4. Chronic anticoagulation, on Eliquis. 5. Coronary artery disease with multiple stents. 6. Atrial tachycardia. Metoprolol is increased. 7. Chronic macrocytic anemia. 8. Combined variable immune deficiency. 9. Chronic kidney disease. 10. Hypertension. 11. Hyperlipidemia. 12. Hypogammaglobulinemia. 13. History of diabetes. Recent A1c 6.2%. DAY SPA MANAGER: Annamarie Perdomo, [facility], [facility]. HISTORY: For details, please see history and physical dated February 07, 2019. In brief, the patient is a 68-year-old female with multiple medical problems and a complex recent history, which is reviewed in detail in my history and physical, presented to the emergency department with shortness of breath. She was recently discharged from the hospital in December 2018, and spent 3-1/2 weeks in a SNF. After b eing home for several weeks, she began to experience more shortness of breath related to activity. S he was treated with oral Lasix for a short period of time near the end of January for lower extremity e luis, and this improved. Thus, her Lasix was stopped. It seemed her shortness of breath worsened si nce stopping her Lasix. In the emergency department, CTA was negative for PE. Pulmonary infarct was noted. Her EKG was unchanged. Troponin was negative. Her BNP was down to 700 from 2000. She was admitted for further evaluation. HOSPITAL COURSE: Patient was admitted to the cardiac telemetry unit. As above, CTA was negative for recurrent PE. She was continued on her Eliquis. I reviewed her recent heart cath from November, during which she had complicated stenting procedure with bifurcation stent to the LAD and diagonal , along with an ostial stent for dissection repair. An echocardiogram was repeated without evidence of wall motion abnormality or significant change; however, old-appearing pericardial effusion was not ed. PATRICE and rheumatoid factor were negative, and there was no evidence of tamponade. She was restar joseph on low dose of Lasix 20 mg p.o. daily. On the day of discharge, she was able to ambulate in the tong and did not feel significantly short of breath. Lexiscan stress test was performed which was ne gative for evidence of ischemia. We also considered if she was having symptomatic atrial tachycardia contributing to her shortness of breath, and her metoprolol is uptitrated from 50 mg b.i.d. to 100 m g b.i.d. In addition, it was brought to my attention she was recently diagnosed with a urinary tract infection in the outpatient setting, and her primary care provider has prescribed doxycycline. She has not complained of urinary symptoms here; however, she will plan to olive picker and start her oral ant ibiotics upon discharge. She was evaluated by [facility] and was deemed safe for discharge axel e. Consideration was given to returning to a detention facility for ongoing rehab as she is se verely deconditioned; however, the patient adamantly refuses to return to SNF, and thus, we will disc harge home with ongoing home health services, including PT, OT, RN, as well as Social Work is added. DISPOSITION: Patient is discharged home in stable condition. FOLLOWUP: 1. Annamarie Perdomo, [facility], [facility]. 2. Dr. Samra Shirley, hematology. 3. Dr. Ashley Burns, primary care. DISCHARGE MEDICATIONS: Please see [facility] for complete outpatient medication list. New medications on discharge include Lasix 20 mg p.o. daily, #30, no refills; metoprolol 100 mg p.o. b.i.d., #60, no refills. She will continue all other outpatient medications as previously prescribed. /[id number]/MODL
== END 2019-02-09 15:23 | disposition home or self-care (01) | DRG 315 ==
LOC: F2W 15:14
PROVIDERS: ADMIT Internal Medicine; ATTEND Internal Medicine
DX: I31.3 Pericardial effusion (noninflammatory) (principal); I47.1 Supraventricular tachycardia; N39.0 Urinary tract infection, site not specified; I25.10 Atherosclerotic heart disease of native coronary artery without angina pectoris; E11.9 Type 2 diabetes mellitus without complications; E03.9 Hypothyroidism, unspecified; D80.1 Nonfamilial hypogammaglobulinemia; D83.9 Common variable immunodeficiency, unspecified; N18.9 Chronic kidney disease, unspecified; N11.9 Chronic tubulo-interstitial nephritis, unspecified; Z95.5 Presence of coronary angioplasty implant and graft; Z86.711 Personal history of pulmonary embolism; Z79.01 Long term (current) use of anticoagulants
CPT/HCPCS: 84484-ER; 97116-GP; 97161-GP; 97165-GO; 97530-GP; 97535-GO; A9500; G0378; J2785; J7512; Q9967

== ENCOUNTER 2019-02-20 15:38 | Inpatient (IN) | payer OTHER, MEDICARE ==
--- NOTE | 2019-02-20 16:10 | EDPHY ---
H & P Time Seen by Provider: 02/20/19 15:53 HPI/ROS: Chief complaint. Brain bleed HPI. Patient is a 68-year-old female who had an MRI earlier today without and with contrast. The indication apparently was confusion in the setting of anticoagulation. The MRI showed acute subarachnoid hemorrhage in the left parieto-occipital lobes without mass effect. Patient is taking Eliquis for pulmonary embolus that was diagnosed in November. She had a recent CT of her chest which shows no residual pulmonary emboli. Patient denies recent fall or injury to her head. She has no headache or change in her vision. The patient and her were on the way home after the MRI and they were called by Dr. Shirley their oncologist who recommended they return to the ER. patient denies fever, chest pain, shortness of breath denies fever, chest pain, shortness of breath. ROS 10 systems were reviewed and negative with the exception of the elements mentioned in the history of present illness Past Medical/Surgical History: Diabetes, depression, bipolar, fibromyalgia, sleep apnea, urinary incontinence, chronic bladder infection, acute renal failure, coronary artery disease with stents, pulmonary embolus on anticoagulation Social History: , nonsmoker, no alcohol Smoking Status: Never smoked Physical Exam: General Appearance: Alert well-developed female mild distress vital signs are stable Eyes: Pupils equal and round no pallor or injection. ENT, Mouth: Mucous membranes are moist. Respiratory: There are no retractions, lungs are clear to auscultation. Cardiovascular: Regular rate and rhythm. Gastrointestinal: Abdomen is soft and nontender, no masses, bowel sounds normal. Neurological: Awake and alert, sensory and motor exams grossly normal. Skin: Warm and dry, no rashes. Musculoskeletal: Neck is supple nontender. Extremities symmetrical, full range of motion. Psychiatric: Patient is oriented X 3, there is no agitation. Constitutional: Initial Vital Signs Temperature (C) 36.8 C 02/20/19 15:50 Heart Rate 98 02/20/19 15:50 Respiratory Rate 18 02/20/19 15:50 Blood Pressure 107/85 H 02/20/19 15:50 O2 Sat (%) 96 02/20/19 15:50 O2 Delivery Mode Room Air Allergies/Adverse Reactions: ciprofloxacin [From Cipro] Allergy (Severe, Verified 02/20/19 15:49) Other-Enter Comments ciprofloxacin HCl [From Cipro] Allergy (Severe, Verified 02/20/19 15:49) Other-Enter Comments levofloxacin [From Levaquin] Allergy (Severe, Verified 02/20/19 15:49) Other-Enter Comments Penicillins Allergy (Severe, Verified 02/20/19 15:49) Anaphylaxis erythromycin lactobionate [From Erythrocin] Allergy (Unknown, Verified 02/20/19 15:49) Other-Enter Comments Sulfa (Sulfonamide Antibiotics) Allergy (Unknown, Verified 02/20/19 15:49) Other-Enter Comments adhesive Allergy (Verified 02/20/19 15:49) lanolin Allergy (Verified 02/20/19 15:49) tetanus immune globulin Allergy (Verified 02/20/19 15:49) Home Medications: Medication Instructions Recorded Divalproex [Depakote] 500 mg PO QID@04,08,12,16 09/01/17 Levothyroxine [Synthroid 75 mcg 75 mcg PO DAILY@04 09/01/17 (*)] Methylphenidate HCl [Ritalin 20mg 20 mg PO QID@04,,12,16 09/01/17 (*)] buPROPion XL [Wellbutrin 150mg XL] 450 mg PO DAILY@04 09/01/17 Estradiol [Estrace Vaginal (*)] 0.125 gm VG DAILY 10/14/18 predniSONE 15 mg PO DAILY 11/17/18 Nitroglycerin 0.4 mg SL Q5M PRN #1 btl 11/25/18 Prasugrel HCl [Effient 10mg (*)] 10 mg PO DAILY #30 tab 11/25/18 Apixaban [Eliquis] 5 mg PO BID #60 tab 11/26/18 Acetaminophen [Tylenol 325mg (*)] 325 mg PO DAILY PRN 02/07/19 Furosemide [Lasix 20 MG (*)] 20 mg PO DAILY #30 tab 02/09/19 Metoprolol Tartrate [Lopressor 50 100 mg PO BID #60 tab 02/09/19 mg (*)] Effient 02/20/19 Medical Decision Making - Diagnostics Imaging Results: Imaging Impressions Chest X-Ray 02/20/19 16:24 Impression: No evidence for acute cardiopulmonary abnormality. Review of MRI from earlier today shows the patient to have an acute subarachnoid hemorrhage in the left parietal-occipital lobes without mass effect. No definite acute infarct, hydrocephalus, mass effect Noncontrast CT head shows no increased in size of the hemorrhage and no mass effect. Reviewed by me and discussed with Dr. Bond Procedures: IV normal saline ED Course/Re-evaluation: Re-evaluation 5:15 p.m.. Patient and I and her discussed imaging study results. We discussed treatment plan including recommendation for admission. They expressed understanding and agreement I consulted discussed the case with Dr. Bo for Neurosurgery who sees the patient in the ED. He recommends no reversal of Eliquis using the T ex a or case intra currently. I consulted discussed the case with who also sees the patient in the ED Differential Diagnosis: Subarachnoid hemorrhage found on MRI. Patient is anticoagulated. The CT and MRI shows fairly minimal subarachnoid hemorrhage without mass effect. - Data Points Laboratory Results: Laboratory Results 02/20/19 16:30 02/20/19 16:30 02/20/19 02/20/19 02/20/19 16:30 16:30 16:30 WBC 11.20 10^3/uL H 10^3/uL (3.80-9.50) RBC 3.76 10^6/uL L 10^6/uL (4.18-5.33) Hgb 12.3 g/dL L g/dL (12.6-16.3) Hct 38.3 % % (38.0-47.0) MCV 101.9 fL H fL (81.5-99.8) MCH 32.7 pg pg (27.9-34.1) MCHC 32.1 g/dL L g/dL (32.4-36.7) RDW 14.3 % % (11.5-15.2) Plt Count 418 10^3/uL H 10^3/uL (150-400) MPV 9.5 fL fL (8.7-11.7) Neut % (Auto) Pending Lymph % (Auto) Pending Taliaferro % (Auto) Pending Eos % (Auto) Pending Baso % (Auto) Pending Nucleat RBC Rel Count Pending Absolute Neuts (auto) Pending Absolute Lymphs (auto) Pending Absolute Monos (auto) Pending Absolute Eos (auto) Pending Absolute Basos (auto) Pending Absolute Nucleated RBC Pending Immature Gran % Pending Immature Gran # Pending Platelet Estimate Pending PT 14.3 SEC SEC (12.0-15.0) INR 1.16 (0.83-1.16) APTT 28.6 SEC SEC (23.0-38.0) Sodium 132 mEq/L L mEq/L (135-145) Potassium 3.5 mEq/L mEq/L (3.5-5.2) Chloride 92 mEq/L L mEq/L (97-110) Carbon Dioxide 25 mEq/l mEq/l (22-31) Anion Gap 15 mEq/L H mEq/L (6-14) BUN 34 mg/dL H mg/dL (7-23) Creatinine 1.8 mg/dL H mg/dL (0.6-1.0) Estimated GFR 28 Glucose 157 mg/dL H mg/dL (70-100) Calcium 10.0 mg/dL mg/dL (8.5-10.4) Departure - Departure Disposition: [facility] Inpatient Acute Clinical Impression: Subarachnoid hemorrhage Condition: Fair
[2019-02-20 16:44] LABS: PLATELET COUNT 418 10^3/uL (150-400)
[2019-02-20 17:10] LABS: INR 1.16 (0.83-1.16); PROTIME(PATIENT) 14.3 SEC (12.0-15.0)
--- NOTE | 2019-02-20 17:22 | CPEKG ---
Test Reason : OPEN Blood Pressure : / mmHG Vent. Rate : 107 BPM Atrial Rate : 109 BPM P-R Int : 135 ms QRS Dur : 164 ms QT Int : 402 ms P-R-T Axes : 032 -71 093 degrees QTc Int : 537 ms Sinus tachycardia RBBB and LAFB LVH with secondary repolarization abnormality Confirmed by Janes Jaffe [id number]) on 02/20/2019 5:22:31 PM Referred By: JANES JAFFE Confirmed By:Janes Jaffe
[2019-02-20] MEDS ORDERED: NS 1,000 ML IV ONE (17:25)
[2019-02-20] MEDS ORDERED: ONDANSETRON 4 MG/2 ML VIAL IVP PRN (17:43)
[2019-02-20] MEDS ORDERED: ACETAMINOPHEN 325 MG TAB PO PRN (17:43)
[2019-02-20] MEDS ORDERED: ONDANSETRON DISINTEGRATING 4 MG TAB PO PRN (17:43)
[2019-02-20] MEDS ORDERED: NITROGLYCERIN 0.4 MG BTL SL PRN (17:44)
--- NOTE | 2019-02-20 18:35 | GHP ---
[f rep st] HISTORY AND PHYSICAL DATE OF ADMISSION: 02/20/2019 CHIEF COMPLAINT: Subarachnoid hemorrhage. HISTORY OF PRESENT ILLNESS: This is a complicated 68-year-old female who presents with MRI findings of a subarachnoid hemorrhage. Recent history is notable for getting 3 cardiac stents in November as well as being diagnosed with a pulmonary embolism in November. She has been on Effient and Eliquis s sandra. She has had a somewhat longstanding history of chronic interstitial nephritis of unclear cause . Had been treated on immunosuppressants by Dr. Jones. She also has a 3 to 4-year history of common variable immunodeficiency, on monthly IVIG by Dr. Gallagher. She had been following up with Dr. Rakesh nguyen for anemia which was felt not to be a bone marrow or malignant process. She saw Dr. Shirley about a week ago with weakness. Because of this Dr. Shirley ordered an MRI of h er brain, which was done today showing a subarachnoid hemorrhage. Thus she was directed to the emerg ency department. She has apparently been getting weaker slowly daily which is general. However, she does have worsening left leg weakness than anywhere else. She has also been somnolent and been slee ping more over the past few days. She has not been eating or drinking very much for the past few day s. She has had no recent falls. Has not hit her head. PAST MEDICAL/PAST SURGICAL HISTORY: 1. History of a pulmonary embolus in November. 2. Chronic interstitial nephritis. 3. Common variable immunodeficiency on IVIG. 4. Anemia. 5. Coronary artery disease status post stent in November. 6. Mood disorder on Depakote. 7. Hypothyroid. 8. Atrial tachycardia. 9. Diabetes mellitus. 10. Chronic kidney disease with a baseline creatinine of about 1.2. MEDICATIONS: Please see medication reconciliation. ALLERGIES: Ciprofloxacin, levofloxacin, penicillin, erythromycin, sulfa, adhesive lanolin, and tetan us immunoglobulin. FAMILY HISTORY: Reviewed and noncontributory. SOCIAL HISTORY: She is accompanied by her . Today is their anniversary. REVIEW OF SYSTEMS: 10-point review of systems is conducted and is negative except as per HPI. PHYSICAL EXAMINATION: VITALS: Blood pressure 110/63, heart rate 93, respiration rate 18, saturating 96% on room air. Temperature 36.8. GENERAL: Ms Harris is a pleasant female who is resting. She is somnolent. However, she wakes up easily and is alert and oriented x3. HEENT: The HEENT shows he r to be normocephalic, atraumatic. CARDIOVASCULAR: A regular rate and rhythm. No murmurs, rubs, or gallops. PULMONARY: Lungs clear to auscultation bilaterally. ABDOMEN: Soft, nontender, nondisten ded. SKIN: No rash. : There is no Orellana. NEUROLOGIC: The neurologic exam shows her to be aler t and oriented x3. Cranial nerves II-XII are intact. She does have notable left leg weakness. PSYC HIATRIC: Normal mood and affect. LABORATORIES: White count is 11, platelets are 419. Creatinine is 1.8, BUN is 34, sodium is 132. DATA: 1. Discussed with Dr. Bo. 2. I reviewed her MRI as well as her head CT. Head CT shows this to be likely a subacute bleed. 3. I personally reviewed and interpreted her EKG. This shows a right bundle branch as well as a lef t anterior fascicular block. IMPRESSION AND PLAN: This is a 68-year-old complicated female who presents with likely a subarachnoi d bleed. 1. Subarachnoid hemorrhage: Initial MRI read was acute. However, on CT read it appears that this i s more subacute. Dr. Bo is involved. He recommends close monitoring in either the intensive car e unit or the stepdown. This was nontraumatic per history. Do not recommend reversing Eliquis at th is time, nor platelet transfusion as she is on Effient. This was nonoperative. We will hold her blo od thinners at this time. I have discussed the risks of this given her recent pulmonary embolism as well as her recent cardiac stent. We could consider an IVC filter tomorrow, however, we would want t o know how long she would need to hold her Eliquis for as well as follow her renal function prior to placing this, which would need contrast. I have requested a neurology consult given the atraumatic n ature of her subarachnoid hemorrhage without evidence of an aneurysm seen on imaging. 2. Left leg weakness: This does not seem to be explained by her neuroimaging. We could consider MR Is of her spine tomorrow. Neurosurgery is involved. 3. Acute on chronic kidney injury. She does have a history of interstitial nephritis. She did rece [place] fosfomycin recently, I am unsure if this is really associated with interstitial nephritis. It ma y be prerenal. We will check a UA as well as urine lytes. We will empirically hydrate her tonight a nd recheck her kidney function tomorrow morning. 4. Pulmonary embolus: Management as above. Holding Eliquis for now. Consider IVC filter. 5. Coronary artery disease: Will need to hold her Effient for now. It appears that she has never b een on aspirin. She did have 3 stents placed in November. 6. Somnolence. This may be metabolic in the setting of her kidney issues. We will check an ammonia level given her Depakote use. Neurology has been consulted. /[id number]/MODL
--- NOTE | 2019-02-20 19:00 | GCON ---
[f rep st] CONSULTATION DATE OF CONSULTATION: 02/20/2019 Please note the patient was seen by myself in the emergency department at 5 p.m. on February 20, 2019. REASON FOR CONSULTATION: Spontaneous subarachnoid hemorrhage without trauma. HISTORY OF PRESENT ILLNESS: The patient is a 68-year-old woman for whom the information obtained from her family members as well as her medical record, as she is not able to present the information herself. She has a very complicated past medical history significant for fibromyalgia, acute renal failure, coronary artery disease with stents, and pulmonary embolism for which she is anticoagulated, who is undergoing further workup by Dr. Shirley, her muffler tender, for progressive weakness and deconditioning. The patient has been noted by her family to have more difficulty with her balance and gait and memory. She underwent MRI scan of the brain earlier today and was noted to have a subarachnoid hemorrhage within the left prior occipital lobe without mass effect. The patient is on Eliquis for pulmonary embolisms and was brought to the [facility] Emergency Department for further evaluation and management. The patient currently denies any headaches. No diplopia or blurred vision, or visual deficits. She does have some difficulty with both comprehension and expression per the . She has had progressive decline over the last several weeks according to the , and denies any recent falls or traumatic events, but has known left lower extremity weakness for which she is supposedly undergoing physical therapy. REVIEW OF SYSTEMS: Complete 10-point review of systems intake form reviewed myself. Significant only for those noted above in the HPI. PAST MEDICAL HISTORY: 1. Diabetes. 2. Depression. 3. Bipolar. 4. Fibromyalgia. 5. Sleep apnea. 6. Urinary incontinence. 7. History of chronic bladder infections. 8. Acute renal failure. 9. Coronary artery disease with stents. 10. History of pulmonary embolism for which she is anticoagulated. SOCIAL HISTORY: The patient lives at home and is . She is a nonsmoker and does not use alcohol. ALLERGIES: 1. Ciprofloxacin. 2. Levofloxacin. 3. Penicillin. 4. Erythromycin. 5. Sulfa. 6. Adhesive. 7. Lanolin. 8. Tetanus immunoglobulin. MEDICATIONS: 1. Depakote 500 mg p.o. four times daily. 2. Synthroid 75 mcg p.o. daily. 3. Ritalin 20 mg p.o. four times daily. 4. Wellbutrin 450 mg p.o. daily. 5. Estradiol 0.125 mg g vaginally daily. 6. Prednisone 15 mg p.o. daily. 7. Nitroglycerin 0.4 mg sublingual q.5 minutes p.r.n. 8. Effient 10 mg p.o. daily. 9. Eliquis 5 mg p.o. twice daily. 10. Tylenol 325 mg p.o. daily p.r.n. 11. Lasix 20 mg p.o. daily. 12. Lopressor 100 mg p.o. twice daily. LABS: White count 11.2, red count is 3.76, hemoglobin 12.3, hematocrit 38.3, platelets 418. INR is 1.16, PTT is 28.6. Sodium is 132, potassium 3.5, BUN of 34, creatinine of 1.8. MEDICAL DECISION MAKING: Patient underwent MRI of the brain with and without contrast as well as an MR angiogram, which demonstrates acute subarachnoid hemorrhage in the left parieto-occipital lobe without mass effect. There is no definite infarct, hydrocephalus, or mass effect. There are several nonspecific hyperintense T2 FLAIR signal abnormalities within the white matter of the bilateral cerebral hemispheres. There is no leptomeningeal enhancement post contrast. 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 Head CT without contrast completed today and reviewed by myself in the [facility] PAC system demonstrates a subacute process in the left upper parieto-occipital region with blood products, with no evidence of acute hemorrhage on the head CT. PHYSICAL EXAMINATION: VITAL SIGNS: Blood pressure is 114/79, heart rate is 110 , respiratory rate is 17, saturating 96% on room air. Temp is 36.8. GENERAL: The patient is lying in bed in no acute distress. She is quite pleasant and cooperative with examination. is at the bedside. HEENT: Head is atraumatic, normocephalic. Pupils are equal, round, and reactive to light bilaterally. Extraocular movements intact. Oropharynx is moist. NEUROLOGIC: Cranial nerves 2-12 are intact. PE. Pupils are equal, round, and reactive to light bilaterally. Extraocular movements are intact. She has intact sensation to light touch on her face bilaterally. Tongue protrudes midline. Uvula and palate elevate symmetrically. She has intact hearing to light finger scratch bilaterally. Shoulder shrug is symmetric. Motor exam: She has 5/5 strength, bilateral professional organizer strength, biceps, triceps, deltoids. Right-sided hip flexion, right knee flexion and extension, and plantar dorsiflexion. She has 4- out of 5 left hip flexion, left knee flexion and extension, and 4/5 left plantar dorsiflexion. Sensory exam: She has intact sensation to light touch in all major dermatomes of the bilateral upper and lower extremities throughout. Reflexes: She has 1+ reflexes at the bilateral brachialis patella, with no Ingram's no Babinski. OTHER: She has visible bruising throughout the bilateral upper extremities. ASSESSMENT AND PLAN: The patient is a 68-year-old woman who presents to the emergency department after undergoing MRI scan which was concerning for a subarachnoid hemorrhage within the cerebral hemispheres. Repeat head CT which was completed several hours later demonstrates that this is a subacute process and not acute. The patient is anticoagulated, and at this point, I do not see a role for reversal of her anticoagulation given the recent history of DVTs and PE's. She will be admitted to the intensive care unit and step-down unit under the care of the internal medicine service. The patient does appear to be somewhat encephalopathic. During examination, does have left lower extremity weakness. I would recommend getting a lumbar spine without contrast to ensure there is a better explanation for her left leg weakness. Continue with PT/OT and close neurologic monitoring this evening. It is unlikely that she will require any surgical intervention for this bleed given the fact that it is not acute in nature. I discussed this with the emergency room as well as Dr. Saul who is admitting this patient this evening. Thank you for this consultation. We will continue to follow along. /[id number]/MODL MTDD
[2019-02-20] MEDS: NS 1,000 ML IV SCH (19:43)
[2019-02-20] MEDS ORDERED: METOPROLOL TARTRATE 50 MG TAB PO SCH (21:00)
[2019-02-20] MEDS ORDERED: NS 500 ML IV ONE ×2 (23:06→23:45)
[2019-02-21] MEDS: DIVALPROEX NA 500 MG TAB PO SCH ×4 (04:58→15:59)
[2019-02-21] MEDS: buPROPion XL 150 MG TAB PO SCH (04:58)
[2019-02-21] MEDS: LEVOTHYROXINE 75 MCG TAB PO SCH (04:58)
[2019-02-21 05:00] LABS: PLATELET COUNT 268 10^3/uL (150-400)
[2019-02-21] MEDS ORDERED: PROTOCOL POTASSIUM 1 DOSE MISC PRN (06:51)
--- NOTE | 2019-02-21 07:12 | NEUSURGPN ---
Assessment/Plan: 68 F with small old occipital SAH and left leg increased fatigue - Okay to continue Elaquis - PT/POT/JEWEL SORTER - Medicine management BP and other ongoing medical issues - Left leg strength full and orientation improved. Will montior today as per nurse strength worse with exertion, "leg fatigue". Recommend lumbar MRI to r/o any pathology -Discussed with Dr. Bo -Please notify NS with any change in neuro/motor exam Subjective: Denies leg pain, weakness this morning Objective: NAD A&Ox3 MAEx4 PERRLA EOMI Face symmetric 5/5 and equal in BUE and BLE - Physician Discussed Patient with : [facility] Physical Exam - Vitals, I&O, Labs I and O 02/20/19 02/21/19 02/22/19 05:59 05:59 05:59 Intake Total 2780 Output Total 325 Balance 2455 Weight 73 kg Intake: Oral (ml) 150 IV Infused (ml) 2630 Ns 1,000 ml @ 75 mls/hr 630 IV CONT MARK Rx#: [id number] Ns 500 ml @ Wide Open IV 500 ONCE ONE Rx#:[id number] Ns 500 ml @ Wide Open IV 500 ONCE ONE Rx#:[id number] Output: Urine (ml) 325 Bedside Commode 25 Catheter 300 Other: Intake Quantity Yes Sufficient Output Comment Bedside Commode pt unable to void Catheter straight cath urine sample sent Bladder Scan Volume (ml) Bedside Commode 150 Catheter 300 Post Void Residual Scan Volume (ml) Bedside Commode 250 Vital Signs Temp Pulse Resp BP Pulse Ox 36.4 C 89 118 H 77/51 L 93 02/21/19 06:00 02/21/19 06:00 02/21/19 06:00 02/21/19 06:00 02/21/19 06:00 Laboratory Results 02/21/19 04:30 02/21/19 04:30 ICD10 Worksheet Patient Problems: Problems Problem Status Onset Subarachnoid hemorrhage Acute Acute electrocardiogram changes Acute Acute hyperkalemia Acute Acute renal failure Acute Dyspnea Acute Generalized weakness Acute Myopathic disease or syndrome Acute PSVT (paroxysmal supraventricular tachycardia) Acute
--- NOTE | 2019-02-21 08:39 | HOSPPROG ---
Hospitalist Progress Note Assessment/Plan: SAH - subacute, occurred on eliquis and effient. Holding AC and antiplatelets for now, per neurosurg ok to resume eliquis. See below, AC may no longer be indicated. -will likely resume Effient and defer Eliquis if ok with neurosurg, see below -rpt head CT for neurologic changes Hypotension - improved with NS bolus, ?blood loss, note left flank ecchymosis -check CT abd/pelvis to r/o RP bleed (no bleed) -holding anti-hypertensives -consider stress dose steroids if hypotension persists and not explained by bleeding, noting pt on chronic prednisone Anemia - hgb dropped from 12 to 8 overnight with hypotension. No obvious bleeding, ?RP bleed as above -cont to trend -holding eliquis and effient -transfuse for hgb <7 or e/o active bleed H/O PE - Dx'd 11/2018 after cath / stent procedure. Pt denies prior VTE. She has completed 3 months AC for provoked PE and recent CTA neg for PE. -check LE u/s to ensure no DVT (neg) -defer IVC filter if US neg given recent CTA neg for PE CAD - recent stent 11/2018, has been on monotherapy with Effient -if no e/o VTE, would favor resuming Effient over Eliquis, cards agrees with monotherapy with Effient (discussed with Dr. Myers) -resume Effient if ok'd by neurosurg Weakness - has been global, though possibly now with increased LLE weakness -L-spine MRI per neurosurg today CVID - followed by Dr. Shirley, gets monthly IVIG, due this week Chronic interstitial nephritis - had been on immunosuppressant therapy, now off due to intolerance -cont chronic prednisone 5 mg daily LUIS / CKD - Cr 1.8 --> 1.3, CKD component thought 2/2 above ESBL Klebsiella on UCx from 02/15 - Suspect colonization. UA yest with minimal pyuria, neg nitrates. She remains afebrile, nl wbc's. Pt initially denied urinary symptoms, but now RN says she endorses dysuria -hold off on atbx for now, will culture UA from yest Full code Dispo - cont inpt, ICU. PT/OT. Pt high risk for decompensation 30 min crit care Subjective: Pt feels ok. She is a little more confused today than earlier this month when I met her. Denies CP or SOB. No bleeding. No abdominal pain, N/V. Denies urinary symptoms to me, but later RN reported she endorsed dysuria. No fevers/chills. Objective: Vital Signs Temp Pulse Resp BP Pulse Ox 36.4 C 89 118 H 77/51 L 93 02/21/19 06:00 02/21/19 06:00 02/21/19 06:00 02/21/19 06:00 02/21/19 06:00 Laboratory Results 02/21/19 04:30 02/21/19 04:30 02/20/19 02/21/19 02/22/19 05:59 05:59 05:59 Intake Total 2780 Output Total 325 50 Balance 2455 -50 PT 14.3 SEC (12.0-15.0) 02/20/19 16:30 INR 1.16 (0.83-1.16) 02/20/19 16:30 - Physical Exam Constitutional: no apparent distress Eyes: PERRL Ears, Nose, Mouth, Throat: moist mucous membranes Cardiovascular: regular rate and rhythym Respiratory: no respiratory distress, clear to auscultation Gastrointestinal: normoactive bowel sounds, soft, non-tender abdomen Skin: other (multiple areas of ecchymosis b/l UE's, LE's, and left flank) Musculoskeletal: full muscle strength Neurologic: AAOx3 Psychiatric: interacting appropriately ICD10 Worksheet Patient Problems: Problems Problem Status Onset History of ESBL Klebsiella pneumoniae infection Acute Subarachnoid hemorrhage Acute Acute electrocardiogram changes Acute Acute hyperkalemia Acute Acute renal failure Acute Dyspnea Acute Generalized weakness Acute Myopathic disease or syndrome Acute PSVT (paroxysmal supraventricular tachycardia) Acute
[2019-02-21] MEDS ORDERED: PROTOCOL MAGNESIUM 1 DOSE IV PRN (08:41)
--- NOTE | 2019-02-21 08:50 | ASMTLACE ---
MARIA A Acuity / Level of Answers: Yes Care: Did the patient have an inpatient admission? Comorbidities - select Answers: Coronary Artery Disease all that apply Diabetes (uncontrolled or controlled) Mild liver or renal disease Other Notes: PE; Chronic interstitia l nephritis # of Emergency department Answers: 5-8 visits in the last 6 months Social determinants Answers: Mental health diagnosis (anxiety, depression, pers onality disorders, etc.) Score: 16 Date Signed: 02/21/2019 08:49 AM Electronically Signed By:Hetal Alva
[2019-02-21] MEDS ORDERED: ESTRADIOL 42.5 GM CRTUBE VG SCH (09:00)
[2019-02-21] MEDS: predniSONE 5 MG TAB PO SCH (09:16)
--- NOTE | 2019-02-21 09:36 | GCON ---
[f rep st] CONSULTATION NEUROLOGIC CONSULTATION REFERRING PHYSICIAN: Stephon Saul MD HISTORY: The patient is a 68-year-old woman who I am asked to see in neurologic consultation regardi ng weakness, among other complex issues in the setting of subarachnoid hemorrhage and prior history o f pulmonary emboli in November. The patient is here because she had an outpatient MRI obtained yeste showing a small amount of subarachnoid blood in the left parieto-occipital region and her hemato logist sent her to the emergency department where she was evaluated and subsequently had a head CT sh owing the changes were probably in the subacute range based on the characteristics of the imaging in that area on the CT. Neurosurgery has seen the patient and feels that she can continue on her treatm ent with Eliquis. The Eliquis was started about 3 months ago when she had a pulmonary embolism aroun d the same time of coronary stenting. She was put on Effient, which had been continued until yesterd when it was being held in addition to the Eliquis. Recent hospitalization, she had other scanning showing no evidence of recurrent emboli in the lungs. From a neurologic perspective, I evaluated her in December for weakness. At that point, she was literal ly crawling up stairs because of weakness in her legs and had rather significant weakness proximally in the lower extremities in perhaps a 4/5 range, but relative preservation of distal strength. I fel t she probably had generalized weakness from deconditioning and type 2 muscular atrophy. We could no t find a different explanation. Since that time, she says she has been generally ambulating in her h ome with mild assistance. When she leaves the house, she closed with a rolling walker. She has not described any recent falls. She denies headache, chest pain, palpitations, but has had some recent s hortness of breath and that recent workup was unrevealing. She does not describe focal numbness or weakness currently. Yesterday, she seemed to be impaired in some of her cognition, and this morning, that has significantly improved per observers, and the patie nt is feeling better. PAST MEDICAL HISTORY: As outlined above. In addition to these specific issues, there is a prior his tory of fibromyalgia. Dr. Amaya has followed her in Rheumatology. She has history of immune defic iency receiving monthly IVIG infusions. She has kidney disease for which she has been treated with i mmunosuppression and followed by Dr. Jones . She had coronary stenting electively November 24 and was put on aspirin and Effient at that time, but then subsequent just Effient. That was the time whe n CT of the chest showed pulmonary emboli. History of diabetes type 2, chronic pyuria, hypothyroidis m, depression, supraventricular tachycardia, hypertension, obstructive sleep apnea, osteomyelitis PAST SURGICAL HISTORY: Cholecystectomy, cystoscopy, right foot surgery, hysterectomy, tonsillectomy, urethral stricture repair, urethrotomy. FAMILY HISTORY: Noncontributory. SOCIAL HISTORY: She lives with her . No alcohol or tobacco. ADMISSIONS: She has had several admissions recently. Please see the hospital records for those diff erent admissions. MEDICATION: Prior to this hospitalization at home, she was being treated with the following medicati ons monthly IVIG for which she would be due this week, Tylenol as needed, Synthroid daily, Estrace va ginal cream, Depakote for mood disorder, Eliquis 5 mg b.i.d., Effient 10 mg daily, nitroglycerin as n eeded, Lopressor 75 b.i.d., Ritalin 20 mg 4 times a day, prednisone 5 mg daily, Wellbutrin 450 mg rosemary ly. Currently, she is off the Effient, IVIG, and Eliquis. ALLERGIES: Include ciprofloxacin, levofloxacin, penicillin, erythromycin, lanolin, tetanus immunoglo bulin, sulfa antibiotics, adhesives. PHYSICAL EXAM: VITAL SIGNS: She is noted to have significant hypotension at times. Yesterday at 21 00, her blood pressure was 122/62, but she had a low at 2339 of 78/42. She received some fluid bolus es. At 0400 today, blood pressure was 79/43, and the current blood pressure at 0060 is 77/51, respir atory rate 18, pulse of 89, and temperature is 36.4. GENERAL: She is lying in the bed in no acute d istress. NECK: Supple with no bruits or masses. CARDIAC: Regular rate and rhythm. No murmur. On exam, there is a fairly large area of ecchymosis over the left flank posteriorly and other areas of small ecchymoses in the extremities. Some mild peripheral edema in the lower extremities. NEUROLOGI C: She is awake, alert, and oriented to the month and the year. She was not correct on the day of or the exact date, but missed by 1. She knows she is in [facility] and she c an answer most basic questions and follow commands fairly well, although this is a little below her b est baseline. Compared to yesterday, that has improved according to Neurosurgery who examined her at the time. Pupils 3 mm and reactive. Extraocular movements intact. Normal facial sensation and str ength. Palate elevates symmetrically. Tongue protrudes midline. Motor exam: Normal muscle bulk an d tone, 5/5 strength essential in the upper extremities. Lower extremities, the distal strength is n early normal. Proximal strength, she can overcome gravity in the legs for several seconds and mainta in that, but does drift down any resistance to hip flexion leads to legs easily being pushed down, wh ich would put her in a category of about 4- over 5 strength proximally in the lower extremities. Ref lexes are hypoactive throughout without Babinski signs. Sensation is preserved for temperature and l ight touch. LABORATORY/IMAGING: I reviewed the head CT MRI results and agree with radiologic interpretations. Current labs show that her hemoglobin is now down to 8.2 with hematocrit of 26.1, compared to hemoglo bin of 12.3 yesterday at 0430, platelet count is 268,000. Normal INR. Serum chemistry: Sodium is 1 34, potassium 3.4, BUN 26, creatinine 1.3, calcium 7.7. Ammonia is less than 9. Albumin 2.0. Liver enzymes are not elevated. Urine had 10 to 15 white cells. IMPRESSION: The patient has a complex set of problems. The reason she came to the hospital was spec ifically because of the finding of subarachnoid hemorrhage in the left parieto-occipital lobe, which is probably asymptomatic and likely related to complications of anticoagulation with Eliquis and Effi ent. She is not showing any evidence of stroke clinically or on the image. This is probably an asym ptomatic finding. The weakness she has is predominantly symmetric lower extremity weakness and not p rofoundly different from what I saw 3 months ago in the same general setting of deconditioning. I ag ree that checking a lumbar spine film is reasonable to look for any unexpected pathology. With regard to resuming anticoagulation, it is not entirely clear that she really has an indication a ny longer for Milly and Dr. Sainz and Dr. Romi Rodriguez will be helping decide that issue. With regard to coronary stenting, Effient use would be appropriate, but we have to weigh the risks and epi efits. Overall, it is probably reasonable to resume that, especially if she is not going to be on El iquis. We presented much of this dated to the patient today and helped her understand the challenges in knowing the ultimate regimen, but we will continue to discuss this among the specialists. The mo st recent scan of her chest did not show any evidence of pulmonary emboli. The significantly reduced hemoglobin and hematocrit are going to be investigated further by Internal Medicine. The mild alter ed mental status does not require any further evaluations for now. We will monitor her clinically. Because of hypotension, I would not recommend adding nimodipine, whi ch might have some protective affects of for development of vasospasm or complications of this non-an eurysmal subarachnoid hemorrhage. Further investigation with more advanced imaging, such as CT angio gram or 4-vessel angiogram can be considered at a later time, but would not pursue that acutely and c onsider the safety of her kidneys as well because she has had a history of kidney failure and kidney disease for which she is getting immunosuppression. Total unit time of 75 minutes.. Copy requested to: [facility] /[id number]/MODL
--- NOTE | 2019-02-21 09:46 | GCON ---
[f rep st] CONSULTATION DIRECTOR SPECIALTY CONSULTATION REASON FOR ADMISSION: Subarachnoid hemorrhage. HISTORY OF PRESENT ILLNESS: The patient is a very pleasant 68-year-old white female, well known to kiesha ontiveros, with an extensive past medical history of a pulmonary embolism in November 2018, common variable i mmune deficiency IVIG, coronary artery disease with a stent in November, hypothyroidism, diabetes, ch ronic renal insufficiency from chronic interstitial nephritis, hypertension, right bundle branch bloc k, and depression. She was admitted with increasing weakness, as well as dizziness. She was seen in the emergency room, which led to a CT scan of the head and then subsequently an MRI, which was found to have acute subarachnoid hemorrhage. Neurosurgery has been consulted. She was subsequently admit joseph to intensive care unit. In discussion with the patient, she states that overall she is feeling somewhat better. She is awake , alert, and oriented x3. She has had worsening breathlessness over the last several weeks and was s cheduled to see myself in the office this afternoon. There is no chest pain, pleuritic-type chest pa in or angina equivalent. No fever or night sweats. PAST MEDICAL HISTORY: Again significant for chronic renal insufficiency secondary to interstitial ne phritis, pulmonary embolism in November after receiving stents for coronary artery disease. She is h ypothyroid, hypertension, diabetes, atrial tachycardia, common variable immunodeficiency on IVIG. ALLERGIES: Extensive and include ciprofloxacin, levofloxacin, penicillin, erythromycin, sulfa, and a dhesive tape. FAMILY HISTORY: Noncontributory. SOCIAL HISTORY: She has never smoked cigarettes, does not drink alcohol. 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 She is , 2 children. She has no pets. She has lived in [place] for 45 years, but is origin ally from [place]. MEDICATIONS: Include Tylenol, Wellbutrin, Depakote, estradiol, Synthroid, Ritalin, Lopressor, Nitros tat, Zofran, magnesium, potassium, and prednisone 5 mg per day. PHYSICAL EXAM: VITAL SIGNS: Blood pressure is 77/51, pulse 89, respiration 18, temperature 36.4, ox ygen saturation is 93% on room air. GENERAL: She is a well-developed, well-nourished, elderly white female who is resting comfortably in no acute distress. HEENT: Eyes DENNY, EOMI. Throat shows no e rythema or tonsillar hypertrophy. NECK: Supple. No cervical adenopathy. HEART: Regular rate and rhythm without murmurs, rubs, gallops. LUNGS: Diminished breath sounds and a mild prolongation expi ratory phase, but there is no wheeze. BACK: Shows bruising on the left flank. ABDOMEN: Soft, nonte nder. Bowel sounds are present. EXTREMITIES: No clubbing, cyanosis, or edema. LABORATORY/IMAGING: White count is 8.7, hemoglobin 8.5, hematocrit 25, platelet count is 268. Hemog lobin from last night shows 12, hematocrit 38. Sodium 134, potassium 3.4, chloride 105, CO2 23, BUN 26, creatinine 1.3, glucose is 96. Urinalysis is negative. CT scan of the head reveals subacute subarachnoid hemorrhage in the left temporal parietal region. IMPRESSION: 1. Status post subarachnoid hemorrhage. 2. History of pulmonary embolus in November of 2018, for which she is currently on Eliquis. 3. Coronary artery disease, status post stents, currently on Effient. 4. Dyspnea. 5. Anemia with significant drop in hemoglobin and hematocrit from last night. Etiology is unclear. Must take into consideration possible retroperitoneal bleed. 6. Chronic renal insufficiency. 7. Hypertension. 8. Common variable immunodeficiency. 9. Hypothyroidism. RECOMMENDATIONS: 1. Follow H and H closely. 2. Agree with CT scan of the abdomen and pelvis as soon as possible. 3. With regard to anticoagulation for pulmonary embolism, as she has been on anticoagulation since [facility], do not feel this is required any further. She had a single pulmonary embolus at that point, had no prior history of PEs or DVTs and had a possible cause for her PE, in particular, coronary dis ease with stents. 4. Would consult Cardiology with regard to the patient's Effient. 5. Agree with Neurology consultation. 6. PT and OT. 7. Speech to see. /[id number]/MODL
[2019-02-21] MEDS ORDERED: POTASSIUM CL 10 MEQ TAB PO ONE ×2 (09:51→20:16)
[2019-02-21] MEDS ORDERED: LORazepam 1 MG TAB PO ONE (09:51)
--- NOTE | 2019-02-21 10:17 | PDMN ---
Medical Necessity Medical necessity: Pt meets IP criteria per MD & MCG M-79; est los >2 mn for eval/tx of subarachnoid hemorrhage; admit to ICU for close monitoring, Neuro consult & possible IVC filter placement; hx CAD w/recent stent placement & PE on AC; per H&P & order 02/20/19
--- NOTE | 2019-02-21 15:27 | ASMTCASEMG ---
Living Arrangements What is your living Answers: With Spouse arrangement? Who do you live with? Type Of Residence What kind of residence do Answers: House you live in? Discharge Plan Comments Coordination Status Comments Notes: Patient is a 68yo female with MRI findings of a subarachnoid hemorrhage. Patient is being admitted for subarachnoid hemorrhage, left leg weakness, acute on chronic kidney injury, pulmonary embolus, CAD, and somnolence. PT/OT/RCIS have been ordered. D/C plan TBD. CM will follow. Date Signed: 02/21/2019 03:26 PM Electronically Signed By:Lashay Roberts LCSW
[2019-02-21] MEDS ORDERED: NS 500 ML IV ONE (16:00)
[2019-02-21] MEDS: PRASUGREL HCL 10 MG TAB PO SCH (18:45)
[2019-02-22] MEDS: buPROPion XL 150 MG TAB PO SCH (04:39)
[2019-02-22] MEDS: DIVALPROEX NA 500 MG TAB PO SCH ×4 (04:39→17:18)
[2019-02-22] MEDS: LEVOTHYROXINE 75 MCG TAB PO SCH (04:39)
[2019-02-22] MEDS: NS 1,000 ML IV SCH (04:47)
--- NOTE | 2019-02-22 08:38 | SOAPPROG ---
SOAP Progress Note Assessment/Plan: Assessment: 68 yo female on Elaquis with small, old SAH. Currently, neurologically intact with reports of subjective left leg weakness. Neurosurgery asked to weigh in. MRI Lumbar spine reviewed by Dr. Bo and on acute findings noted to explain her issues which she says have been longstanding. Plan: No Neurosurgical intervention required. Lumbar MRI shows mild degenerative changes without explanation for subjective left leg weakess. Dr. Bo recommends patient follow up with Neurology for CTH findings OK to continue with anticoagulants from our standpoint Recommend PT/OT We will sign off with no need for patient to follow up with us. Plan discussed with Dr. Bo. 02/22/19 08:34 Subjective: In bed, no complaints, she has had subjective weakness in her left leg for a long time. Does not feel weak or painful currently. Objective: Vital Signs Temp Pulse Resp BP Pulse Ox 36.8 C 99 20 89/59 L 92 02/22/19 04:00 02/22/19 06:00 02/22/19 06:00 02/22/19 06:00 02/22/19 06:00 Laboratory Results 02/22/19 04:30 02/22/19 04:30 02/21/19 02/22/19 02/23/19 05:59 05:59 05:59 Intake Total 2780 3900 Output Total 325 700 Balance 2455 3200 PT 14.3 SEC (12.0-15.0) 02/20/19 16:30 INR 1.16 (0.83-1.16) 02/20/19 16:30 Neuro: MARES, sens +LT 5/5 in bilateral LE ICD10 Worksheet Patient Problems: Problems Problem Status Onset History of ESBL Klebsiella pneumoniae infection Acute Subarachnoid hemorrhage Acute Acute electrocardiogram changes Acute Acute hyperkalemia Acute Acute renal failure Acute Dyspnea Acute Generalized weakness Acute Myopathic disease or syndrome Acute PSVT (paroxysmal supraventricular tachycardia) Acute
[2019-02-22] MEDS: predniSONE 5 MG TAB PO SCH (08:48)
[2019-02-22] MEDS: PRASUGREL HCL 10 MG TAB PO SCH (08:48)
--- NOTE | 2019-02-22 08:49 | PDINTPN ---
Programmer Developer Progress Note Assessment/Plan: Assessment/plan: * Status post subarachnoid hemorrhage-still weak. L-spine MRI revealed arthritis -continue PT/OT * History of PE November 2018 -she does not require further anticoagulation with Eliquis at this time * Coronary disease/status post stents-remains on Effient * Chronic renal insufficiency secondary to interstitial nephritis * Hypothyroidism * Hypertension * Diabetes-blood sugars under control * Common variable immunodeficiency * Nutrition-adequate * Disposition-will transfer to step-down unit Subjective: Sitting up in bed eating. Comfortable. Denies any pain. Still has weakness. Breathing easily. Objective: Vital Signs Temp Pulse Resp BP Pulse Ox 36.8 C 99 20 89/59 L 92 02/22/19 04:00 02/22/19 06:00 02/22/19 06:00 02/22/19 06:00 02/22/19 06:00 Laboratory Results 02/22/19 04:30 02/22/19 04:30 02/21/19 02/22/19 02/23/19 05:59 05:59 05:59 Intake Total 2780 3900 Output Total 325 700 Balance 2455 3200 PT 14.3 SEC (12.0-15.0) 02/20/19 16:30 INR 1.16 (0.83-1.16) 02/20/19 16:30 Physical Exam - Physical Exam General Appearance: alert, no apparent distress EENT: PERRL/EOMI, normal ENT inspection Neck: non-tender, supple Respiratory: chest non-tender, lungs clear, normal breath sounds Cardiac/Chest: normal peripheral pulses, regular rate, rhythm Abdomen: normal bowel sounds, non-tender, soft Pelvic Exam: deferred Rectal: deferred Skin: normal color, warm/dry Extremities: non-tender, normal inspection Neuro/Psych: no motor/sensory deficits, alert, normal mood/affect, oriented x 3 ICD10 Worksheet Patient Problems: Problems Problem Status Onset History of ESBL Klebsiella pneumoniae infection Acute Subarachnoid hemorrhage Acute Acute electrocardiogram changes Acute Acute hyperkalemia Acute Acute renal failure Acute Dyspnea Acute Generalized weakness Acute Myopathic disease or syndrome Acute PSVT (paroxysmal supraventricular tachycardia) Acute
--- NOTE | 2019-02-22 08:54 | NEUROPROG ---
Assessment: Today's 15 min visit was predominantly counseling regarding her condition and management strategies for weakness which has multifactorial in nature and not indicative of a focal lesion. She needs to continue being as active as possible. The subarachnoid hemorrhage is not causing any acute problem and it is safe for her to leave the ICU. I agree with the current planned to continue the Effient as per Cardiology and not utilize the Eliquis any longer. I would like her to follow up with me in about 4 6 weeks in the office. Subjective: The patient is reporting feeling a little bit stronger and has no acute neurologic complaints. Objective: Vital Signs Temp Pulse Resp BP Pulse Ox 36.8 C 99 20 89/59 L 92 02/22/19 04:00 02/22/19 06:00 02/22/19 06:00 02/22/19 06:00 02/22/19 06:00 Laboratory Results 02/22/19 04:30 02/22/19 04:30 02/21/19 02/22/19 02/23/19 05:59 05:59 05:59 Intake Total 2780 3900 Output Total 325 700 Balance 2455 3200 PT 14.3 SEC (12.0-15.0) 02/20/19 16:30 INR 1.16 (0.83-1.16) 02/20/19 16:30 Her strength is unchanged. The MRI of the lumbar spine was unremarkable. Allergies/Adverse Reactions: ciprofloxacin [From Cipro] Allergy (Severe, Verified 02/20/19 15:49) Other-Enter Comments ciprofloxacin HCl [From Cipro] Allergy (Severe, Verified 02/20/19 15:49) Other-Enter Comments levofloxacin [From Levaquin] Allergy (Severe, Verified 02/20/19 15:49) Other-Enter Comments Penicillins Allergy (Severe, Verified 02/20/19 15:49) Anaphylaxis erythromycin lactobionate [From Erythrocin] Allergy (Unknown, Verified 02/20/19 15:49) Other-Enter Comments Sulfa (Sulfonamide Antibiotics) Allergy (Unknown, Verified 02/20/19 15:49) Other-Enter Comments adhesive Allergy (Verified 02/20/19 15:49) lanolin Allergy (Verified 02/20/19 15:49) tetanus immune globulin Allergy (Verified 02/20/19 15:49)
--- NOTE | 2019-02-22 09:23 | HOSPPROG ---
Hospitalist Progress Note Assessment/Plan: SAH - subacute, occurred on eliquis and effient. Not thought to be cause of global weakness, discussed with neurology. Eliquis is d/c'd, see below. -resume Effient, ok'd by neurosurg -rpt head CT if any neurologic changes Hypotension - improved with NS bolus and holding anti-hypertensives -will resume low dose BB for atrial tachycardia and up-titrate as tolerated, see below -discussed w/ EP possibility that higher BB doses are not tolerated well by pt (?source of increased fatigue) and if ablation is an option vs changing to CCB Anemia - chronic, though hgb dropped from 12 to 8 with hypotension yest am. No RP bleed on CT. Hemodynamically stable this am, hgb stable. Prior w/u includes BM bx, which was negative for MDS. Recent Fe, B12, folate nl. -cont to trend -transfuse for hgb <7 or e/o active bleed -will d/w heme H/O PE - Dx'd 11/2018 after cath / stent procedure. Pt denies prior VTE. She has completed 3 months AC for provoked PE and recent CTA neg for PE. LE US neg for VTE. -defer IVC filter if US neg given recent CTA neg for PE CAD - recent stent 11/2018, has been on monotherapy with Effient -resume Effient, discussed with cards Weakness - has been global. Neurology has evaluated, thought related to deconditioning. -L-spine MRI neg CVID - followed by Dr. Shirley, gets monthly IVIG, due this week Chronic interstitial nephritis - had been on immunosuppressant therapy, now off due to intolerance -cont chronic prednisone 5 mg daily LUIS / CKD - Cr 1.8 --> 0.9, CKD component thought 2/2 above ESBL Klebsiella on UCx from 02/15 - Suspect colonization. UA yest with minimal pyuria, neg nitrates. She remains afebrile, nl wbc's. Pt denies urinary symptoms. Rpt UCx ngtd. -defer atbx Full code Dispo - cont inpt, ICU. PT/OT recommending inpt rehab. Subjective: Pt doing better this am. Mentation improved, but still fatigued and weak. No e/o bleeding other than ongoing widespread ecchymosis. No CP or SOB. No headaches or vision changes. Denies dysuria, frequency, urgency. No fevers/chills, nausea or vomiting. concerned she may desat with activity. Objective: Vital Signs Temp Pulse Resp BP Pulse Ox 36.6 C 120 H 14 104/58 L 94 02/22/19 08:00 02/22/19 08:00 02/22/19 08:00 02/22/19 08:00 02/22/19 08:00 Laboratory Results 02/22/19 04:30 02/22/19 04:30 02/21/19 02/22/19 02/23/19 05:59 05:59 05:59 Intake Total 2780 3900 Output Total 325 700 Balance 2455 3200 PT 14.3 SEC (12.0-15.0) 02/20/19 16:30 INR 1.16 (0.83-1.16) 02/20/19 16:30 - Physical Exam Constitutional: no apparent distress Eyes: PERRL Ears, Nose, Mouth, Throat: moist mucous membranes Respiratory: no respiratory distress, clear to auscultation Gastrointestinal: normoactive bowel sounds, soft, non-tender abdomen Skin: warm Musculoskeletal: generalized weakness Neurologic: AAOx3 Psychiatric: interacting appropriately ICD10 Worksheet Patient Problems: Problems Problem Status Onset History of ESBL Klebsiella pneumoniae infection Acute Subarachnoid hemorrhage Acute Acute electrocardiogram changes Acute Acute hyperkalemia Acute Acute renal failure Acute Dyspnea Acute Generalized weakness Acute Myopathic disease or syndrome Acute PSVT (paroxysmal supraventricular tachycardia) Acute
[2019-02-22] MEDS ORDERED: METOPROLOL TARTRATE 50 MG TAB PO SCH (09:45)
[2019-02-22] MEDS: METOPROLOL TARTRATE 25 MG TAB PO SCH ×2 (10:09→20:29)
[2019-02-23] MEDS: buPROPion XL 150 MG TAB PO SCH (04:13)
[2019-02-23] MEDS: LEVOTHYROXINE 75 MCG TAB PO SCH (04:13)
[2019-02-23] MEDS: DIVALPROEX NA 500 MG TAB PO SCH ×4 (04:14→16:17)
[2019-02-23] MEDS: PRASUGREL HCL 10 MG TAB PO SCH (08:12)
[2019-02-23] MEDS: predniSONE 5 MG TAB PO SCH (08:12)
[2019-02-23] MEDS: METOPROLOL TARTRATE 25 MG TAB PO SCH (08:13)
--- NOTE | 2019-02-23 08:59 | PDINTPN ---
Industrial Chemist Progress Note Assessment/Plan: Assessment/plan: * Status post subarachnoid hemorrhage-still weak. L-spine MRI revealed arthritis -continue PT/OT * History of PE November 2018 -she does not require further anticoagulation with Eliquis at this time * Coronary disease/status post stents-remains on Effient * Chronic renal insufficiency secondary to interstitial nephritis * Hypothyroidism * Anemia * Hypertension * Diabetes-blood sugars under control * Common variable immunodeficiency * Nutrition-adequate * Disposition-will transfer to medical surgical floor. -anticipate rehab soon 02/23/19 08:55 Subjective: Resting comfortably. Pain well tolerated. Working with physical therapy. Objective: Vital Signs Temp Pulse Resp BP Pulse Ox 36.6 C 118 H 16 103/78 90 L 02/23/19 07:40 02/23/19 07:40 02/23/19 07:40 02/23/19 07:40 02/23/19 07:40 Laboratory Results 02/22/19 18:15 02/23/19 04:20 02/22/19 02/23/19 02/24/19 05:59 05:59 05:59 Intake Total 3900 1900 Output Total 700 Balance 3200 1900 PT 14.3 SEC (12.0-15.0) 02/20/19 16:30 INR 1.16 (0.83-1.16) 02/20/19 16:30 - Time Spent With Patient Time Spent With Patient: 35 min of time spent with patient, over 1/2 involved coordination of care or counseling. Case discussed with hospitalist, nursing and family Physical Exam - Physical Exam General Appearance: alert, no apparent distress EENT: PERRL/EOMI Neck: non-tender, full range of motion Respiratory: chest non-tender, lungs clear, normal breath sounds Cardiac/Chest: normal peripheral pulses, regular rate, rhythm Peripheral Pulses: 2+: carotid (R), carotid (L), femoral (R), femoral (L), dorsalis-pedis (R), dorsalis-pedis (L) Abdomen: normal bowel sounds, non-tender, soft Pelvic Exam: deferred Rectal: deferred Skin: normal color, warm/dry Neuro/Psych: no motor/sensory deficits, alert, motor weakness (mild) ICD10 Worksheet Patient Problems: Problems Problem Status Onset History of ESBL Klebsiella pneumoniae infection Acute Subarachnoid hemorrhage Acute Acute electrocardiogram changes Acute Acute hyperkalemia Acute Acute renal failure Acute Dyspnea Acute Generalized weakness Acute Myopathic disease or syndrome Acute PSVT (paroxysmal supraventricular tachycardia) Acute
[2019-02-23] MEDS ORDERED: METOPROLOL TARTRATE 25 MG TAB PO SCH (10:18)
--- NOTE | 2019-02-23 13:10 | HOSPPROG ---
Hospitalist Progress Note Assessment/Plan: SAH - subacute, occurred on eliquis and effient. Not thought to be cause of global weakness, discussed with neurology. Eliquis is d/c'd, see below. -resume Effient, ok'd by neurosurg -rpt head CT if any neurologic changes Hypotension - improved with NS bolus and holding anti-hypertensives -BP stable back on low dose BB Atrial tachycardia - BP tolerating resumption of low dose metoprolol, tele personally reviewed, rates mostly 90-110 -uptitrate metop to 25 mg BID (was on 100 mg bid) -discussed with EP, not a candidate for ablation -could try dilt instead if concern she can't tolerate BB due to weakness / fatigue Anemia - chronic, though hgb dropped from 12 to 8 with hypotension tue am. No RP bleed on CT. Hemodynamically stable this am, hgb stable. Prior w/u includes BM bx, which was negative for MDS. SPEP normal. Recent Fe, B12, folate nl. Retic count elevated but no e/o hemolysis, ?blood loss but no obvious source of bleeding -check hemoccult stool -cont to trend -transfuse for hgb <7 or e/o active bleed H/O PE - Dx'd 11/2018 after cath / stent procedure. Pt denies prior VTE. She has completed 3 months AC for provoked PE and recent CTA neg for PE. LE US neg for VTE. -defer IVC filter if US neg given recent CTA neg for PE -stop eliquis due to ICH, s/p 3 months tx for provoked event, discussed with pulm CAD - recent stent 11/2018, has been on monotherapy with Effient -cont effient Weakness - has been global. Neurology has evaluated, thought related to deconditioning. -L-spine MRI neg CVID - followed by Dr. Shirley, gets monthly IVIG, due this week Chronic interstitial nephritis - had been on immunosuppressant therapy, now off due to intolerance -cont chronic prednisone 5 mg daily, will decrease to 2.5 mg daily per planned taper at d/c LUIS / CKD - Cr 1.8 --> 0.9, CKD component thought 2/2 above ESBL Klebsiella on UCx from 02/15 - Suspect colonization. UA yest with minimal pyuria, neg nitrates. She remains afebrile, nl wbc's. Pt denies urinary symptoms. Rpt UCx ngtd. -defer atbx Full code Dispo - cont inpt, ICU. PT/OT recommending inpt rehab. Subjective: PT feels ok. She is tired. No headaches or vision changes. No CP or SOB. Not ambulating much. She thinks her fatigue is a little better on lower dose BB. Agrees to inpt rehab. Objective: Vital Signs Temp Pulse Resp BP Pulse Ox 36.6 C 118 H 16 103/78 90 L 02/23/19 07:40 02/23/19 07:40 02/23/19 07:40 02/23/19 07:40 02/23/19 07:40 Microbiology 02/21/19 10:58 Urine Culture - Final Urine,Clean Catch Laboratory Results 02/22/19 18:15 02/23/19 04:20 02/22/19 02/23/19 02/24/19 05:59 05:59 05:59 Intake Total 3900 1900 Output Total 700 Balance 3200 1900 PT 14.3 SEC (12.0-15.0) 02/20/19 16:30 INR 1.16 (0.83-1.16) 02/20/19 16:30 - Physical Exam Constitutional: no apparent distress Eyes: PERRL Ears, Nose, Mouth, Throat: moist mucous membranes Cardiovascular: regular rate and rhythym Respiratory: no respiratory distress, clear to auscultation Gastrointestinal: normoactive bowel sounds, soft, non-tender abdomen Skin: warm, other (multiple areas of ecchymosis b/l extremities and flank) Musculoskeletal: generalized weakness Neurologic: AAOx3 Psychiatric: interacting appropriately ICD10 Worksheet Patient Problems: Problems Problem Status Onset Subarachnoid hemorrhage Acute Acute electrocardiogram changes Acute Acute hyperkalemia Acute Acute renal failure Acute Dyspnea Acute Generalized weakness Acute History of ESBL Klebsiella pneumoniae infection Acute Myopathic disease or syndrome Acute PSVT (paroxysmal supraventricular tachycardia) Acute
[2019-02-24] MEDS: buPROPion XL 150 MG TAB PO SCH (03:59)
[2019-02-24] MEDS: DIVALPROEX NA 500 MG TAB PO SCH ×4 (04:00→16:01)
[2019-02-24] MEDS: LEVOTHYROXINE 75 MCG TAB PO SCH (04:00)
[2019-02-24] MEDS: PRASUGREL HCL 10 MG TAB PO SCH (08:48)
[2019-02-24] MEDS: METOPROLOL TARTRATE 25 MG TAB PO SCH ×2 (08:48→16:01)
[2019-02-24] MEDS: predniSONE 5 MG TAB PO SCH (08:48)
[2019-02-24] MEDS ORDERED: ACETAMINOPHEN 500 MG TAB PO ONE (10:00)
[2019-02-24] MEDS ORDERED: [UNRECOGNIZED DRUG - OTHER] IV SCH ×2 (10:00→10:30)
[2019-02-24] MEDS ORDERED: CETIRIZINE 10 MG TAB PO ONE (10:00)
--- NOTE | 2019-02-24 13:59 | PDIAF ---
- Diagnosis Diagnosis: subacute subarachnoid hemorrhage Code Status: Full Code - Medication Management Discharge Medications: electronically signed and located in the Home Medication List. PICC Care - Routine: N/A - Orders Services needed: Registered Nurse, Physical Therapy, Occupational Therapy, Speech Language Pathologist Isolation Type: Contact Isolation Diet Recommendation: no restrictions on diet - Follow Up Care Current Providers and Referrals: Ashley Burns MD [Primary Care Provider] - As per Instructions
--- NOTE | 2019-02-24 14:39 | ASMTCMCOM ---
CM Note CM Note Notes: Inpatient rehab is able to take the patient today but not until 4:00 PM. CM following. Date Signed: 02/24/2019 02:38 PM Electronically Signed By:Lashay Roberts LCSW
--- NOTE | 2019-02-24 14:57 | ASMTDCNOTE ---
Case Management Discharge Discharge Order Complete? Answers: Yes Patient to Obtain Answers: Other Notes: [facility] Inpatient Rehab Medications Transportation Arranged Answers: Other Notes: Patient will go to Faxed Final Orders Answers: Yes Notes: [facility] Inpatient Rehab Agency/Facility Transfer Answers: Yes Notes: [facility] Inpatient Rehab Report Printed & Faxed to Receiving Agency Family Notified Answers: Yes Notes: [facility], Discharge Comments Notes: Patient is discharging to [facility] Inpatient Rehab today. Transport is wheelchair to where the program is temporarily located at 4:00PM. Discharge summaries have been forwarded [employer]. A referral was made for outpatient Palliative consult to [facility] per the Palliative Care team. (Mavis) No further needs. Date Signed: 02/24/2019 02:57 PM Electronically Signed By:Lashay Roberts LCSW
[2019-02-24 16:03] VITALS: BP 107/64
--- NOTE | 2019-02-24 19:23 | GDS ---
[f rep st] DISCHARGE SUMMARY DISCHARGE DIAGNOSES: 1. Subacute subarachnoid hemorrhage in the setting of chronic anticoagulation. 2. Atrial tachycardia. 3. Chronic anemia. 4. History of pulmonary embolism. 5. Coronary artery disease with cardiac stent placed November 2018. 6. Weakness and deconditioning. 7. Combined variable immune deficiency. 8. Chronic interstitial nephritis. 9. Acute kidney injury, resolved in the setting of chronic kidney disease. 10. Back fall actually. CONSULTANTS: 1. Dr. Moose Bo neurosurgery. 2. Dr. Kevin De Paz, neurology. 3. Dr. Jhon Sainz, Pulmonology. HISTORY: For details, please see history and physical dated February 20, 2019. In brief, the patient is a 68-year-old female with a complex medical history, who presented to the emergency department after an outpatient MRI imaging revealed a subarachnoid hemorrhage. Her recent history is notable for cardiac stent placement in November of 2018. Shortly after her procedure, she developed a pulmonary embolism. She was treated for this provoked pulmonary embolism for 3 months with Eliquis. She was admitted to the hospital earlier in February for dyspnea. At that time, had a CTA that was negative for pulmonary embolism. She has been evaluated by Neurology for her weakness, which was thought to be secondary to general deconditioning. Given this incidental finding of subarachnoid hemorrhage, she was admitted the hospital for further evaluation. HOSPITAL COURSE: Patient admitted to the intensive care unit. Neurosurgery consult was obtained. Brain MRI revealed this is likely a subacute hemorrhage and surgery was not recommended. As a matter of fact, the neurosurgery service felt she would be safe to resume her anticoagulation. Consideration was given to an IVC filter. However, noting that she has had 3 months of treatment with anticoagulation since her provoked pulmonary embolism in November with subsequent intracranial hemorrhage and negative lower extremity ultrasound, we opted to stop her Eliquis altogether and deferred IVC filter. At this point, she has no evidence of active pulmonary embolism or deep venous thrombosis. A lumbar spine MRI was performed for further evaluation of her chronic ongoing lower extremity weakness. This was negative for any evidence of nerve compression or disk herniation. Degenerative disk disease was noted. The morning after admission, she dropped her hemoglobin from 12 to 8 in the setting of hypotension. Abdominal CT was performed and was negative for retroperitoneal hematoma. There is no other evidence of active bleeding. I suspect she may have been hemoconcentrated and her hemoglobin drop may be more reflective of her chronic state after IV hydration. I reviewed her previous workup for anemia, which has included a negative bone marrow biopsy. She has had predominantly macrocytic anemia. Vitamin B12 and folate levels are normal here. Given her rapid decline and hemoglobin as described above, a reticulocyte count was obtained, which was slightly elevated. She does not have evidence of hemolysis with normal bilirubin and normal LDH. This could also suggest acute blood loss, so as above, there has been no evidence of active bleeding. Her hemoglobin has remained stable and she has had no further hypotension. She does follow with Dr. Samra Shirley in the outpatient clinic, so this can be monitored by Hematology going forward. She has also had issues with atrial tachycardia and has required up-titration of her metoprolol in the past. There is some concern that she does not tolerate the high dose of the beta pema, which may have been contributory to her hypotensive event. Her beta-pema was decreased from 75 mg twice daily to 25 mg 3 times daily. She has been tolerating this dose. I also note she has been on very high dose Ritalin 20 mg 4 times a day. We discussed this could be hastening her tachycardia. In addition, I think she is very high cardiovascular risk to be on amphetamines given her recent coronary intervention; therefore, I recommend she discontinue this. Patient agrees, will hold this for now, and she can follow up with her psychiatrist for further discussion. She also has a diagnosis of combined variable immune deficiency and was due for her IVIG, which she received on the day of discharge. In addition, she has been treated for chronic interstitial nephritis by Nephrology and is currently on a prednisone taper. The plan is to decrease her prednisone from 5 mg to 2.5 mg daily on the day of discharge. She has been evaluated by our therapy services and is recommended she go to inpatient rehab for ongoing strengthening and conditioning. On the day of discharge, her vital signs are stable with a blood pressure of 113 /78, heart rate 98, respiratory rate 18, she is 98% on room air. DISPOSITION: Patient is discharged to inpatient rehab in stable condition. FOLLOWUP: 1. Dr. Ashley Burns, primary care. 2. Dr. Samra Shirley, Hematology/Oncology. 3. Psychiatrist. 4. Dr. Jones with [facility]. DISCHARGE MEDICATIONS: Please see [facility] for completed outpatient medication list. There are no new medications on discharge. Changed medications: Metoprolol dose is decreased to 25 mg p.o. t.i.d., prednisone dose is decreased from 5 to 2.5 mg daily. Eliquis is discontinued. Ritalin is discontinued, and she will continue all other outpatient medications as previously prescribed. /[id number]/MODL and [id number]/MODL MTDD
== END 2019-02-24 18:00 | DRG 65 ==
LOC: F2N 18:28
PROVIDERS: ADMIT Student in an Organized Health Care Education/Training Program; ATTEND Student in an Organized Health Care Education/Training Program
DX: I60.9 Nontraumatic subarachnoid hemorrhage, unspecified (principal); D81.9 Combined immunodeficiency, unspecified; I47.1 Supraventricular tachycardia; N11.9 Chronic tubulo-interstitial nephritis, unspecified; N17.9 Acute kidney failure, unspecified; I12.9 Hypertensive chronic kidney disease with stage 1 through stage 4 chronic kidney disease, or unspecified chronic kidney disease; N18.9 Chronic kidney disease, unspecified; D64.9 Anemia, unspecified; I25.10 Atherosclerotic heart disease of native coronary artery without angina pectoris; E03.9 Hypothyroidism, unspecified; Z79.01 Long term (current) use of anticoagulants; Z86.711 Personal history of pulmonary embolism; Z95.5 Presence of coronary angioplasty implant and graft
CPT/HCPCS: 82607-90; 83010-90; 84484-ER; 92507-GN; 92523-GN; 97110-GP; 97116-GP; 97162-GP; 97166-GO; 97530-GO; 97530-GP; 97535-GO; J7512

== ENCOUNTER → 2019-02-20 | Outpatient (CLI) | payer OTHER, MEDICARE ==
[~2019-02-20] MED LIST: GADOBUTROL 10 ML VIAL IVP ONE
== END ==
LOC: FIMAGING 12:11
PROVIDERS: ATTEND Internal Medicine
DX: R90.82 White matter disease, unspecified (principal); R93.0 Abnormal findings on diagnostic imaging of skull and head, not elsewhere classified
CPT/HCPCS: 70553; A9585

== ENCOUNTER 2019-02-24 16:30 | Inpatient (IN) | payer OTHER, MEDICARE ==
[2019-02-24] MEDS ORDERED: NITROGLYCERIN 0.4 MG BTL SL PRN (18:17)
[2019-02-24] MEDS ORDERED: ACETAMINOPHEN 325 MG TAB PO PRN (18:17)
--- NOTE | 2019-02-24 20:24 | GHP ---
[f rep st] HISTORY AND PHYSICAL POST ADMISSION PHYSICIAN EVALUATION AND REHABILITATION TREATMENT PLAN DATE OF ADMISSION: 02/24/2019 DATE OF EVALUATION: 02/24/2019 TIME OF EVALUATION: 1820. REFERRING FACILITY: [facility]. REFERRING PHYSICIAN: Chante Rodriguez MD CONSULTING PHYSICIANS: She was seen by Neurosurgery, oMose Bo MD; Neurology, Kevin De Paz MD; and Pulmonary/Critic Care, Andrew Sainz DO. REHABILITATION DIAGNOSIS: Debility status post subarachnoid hemorrhage. ETIOLOGIC DIAGNOSIS: Nontraumatic brain dysfunction. IMPAIRMENT GROUP: 2.1. DATE OF ONSET: 02/20/2019. HISTORY OF PRESENT ILLNESS: This patient developed weakness and confusion for approximately 1 week. Weakness was especially prominent on the left lower extremity. She was sent for a brain MRI as an outpatient. This showed a subarachnoid hemorrhage in the left parietal and occipital lobes. She had global weakness beyond what would be expected from the brain imaging. She had a history of pulmonary embolus greater than 3 months ago, and had recent cardiac stenting for which she was on apixaban and prasugrel. These medications were held due to the subarachnoid hemorrhage. Subsequently, prasugrel was resumed. She had a chest CT angiography done, which showed resolution of the prior segmental and subsegmental pulmonary emboli. Her weakness was thought to be due to deconditioning. There was a lumbar spine MRI done, as well, which did not show any abnormalities. She had acute kidney injury with a creatinine peaking at 1.8. This improved with hydration to 0.9. It was thought to be related to a history of chronic interstitial nephritis for which she has been on prednisone. Prednisone was decreased during her hospitalization from 5 mg daily to 2.5 mg daily, which had been a planned taper prior to her hospitalization. She had anemia and hypotension. Anemia was stable. There was an elevated reticulocyte count, but no evidence of hemolysis. Hemoccult stool was negative x1 and anemia was stable during her hospitalization. Hypotension responded to fluids and holding her antihypertensives. She was tachycardic. Due to her hypotension, metoprolol had been held and was cautiously restarted. She was eventually medically stabilized and ready for inpatient rehabilitation. She received a dose of IVIG for common variable immunodeficiency on the day of hospital discharge. LABORATORY STUDIES: Other studies and labs during her stay: Hemoglobin and hematocrit on the day of discharge were 8.5 and 28.1. The dedrick had been 7.9 and 25.1. Coagulation studies revealed normal PT and PTT. Serum chemistry showed renal function as discussed previously. Otherwise, electrolytes were overall within normal limits. Elevated BUN normalized with hydration. Lactate dehydrogenase was normal at 566. B12 and folate were normal. Liver function tests were overall normal. AST was actually low at 10. Albumin was slightly low at 2.0. Ammonia was less than 9, presumably checked due to her confusion. She had hyponatremia initially, but this normalized. Urinalysis was normal but for trace of leukocyte esterase. She had a recent urine culture which grew extended spectrum beta lactamase producing Klebsiella. PRECAUTIONS: She is a fall risk. She has contact isolation for the extended spectrum beta lactamase producing Klebsiella in her urine culture. ACTIVE COMORBIDITIES: She has no active tier 1, tier 2 or tier 3 comorbidities. PAST MEDICAL HISTORY: 1. Common variable immunodeficiency. 2. Pulmonary embolus. 3. Coronary artery disease. 4. Depression. 5. Fibromyalgia. 6. Obstructive sleep apnea. 7. Chronic bladder infection. PAST SURGICAL HISTORY: She has had stenting for her coronary artery disease. PRE-HOSPITAL MEDICATIONS: 1. Divalproex 500 mg p.o. four times daily at 0400, 0800, 1200 and 1600. 2. Levothyroxine 75 mg p.o. daily at 0400. 3. Methylphenidate 20 mg p.o. four times daily at 0400, 0800, 1200, and 1600. 4. Bupropion XL 450 mg p.o. daily at 0400. 5. Estradiol 0.125 vaginal suppository daily. 6. Prednisone 5 mg p.o. daily. 7. Nitroglycerin 0.4 mg sublingual q.5 minutes p.r.n. 8. Prasugrel 10 mg p.o. daily. 9. Apixaban 5 mg p.o. twice daily. 10. Acetaminophen 325 mg p.o. daily p.r.n. 11. Furosemide 20 mg p.o. daily. 12. Metoprolol 100 mg p.o. twice daily. ADMISSION MEDICATIONS: 1. Acetaminophen 325 mg p.o. daily p.r.n. 2. Bupropion XL 450 mg p.o. daily at 0400. 3. Divalproex 500 mg p.o. four times daily at 0400, 0800, 1200, and 1600. 4. IVIG intravenously q.28 days. 5. Levothyroxine 75 mcg p.o. daily at 0400. 6. Metoprolol 25 mg p.o. three times daily. 7. Nitroglycerin 0.4 mg sublingual q.5 minutes p.r.n. 8. Prasugrel 10 mg p.o. daily. 9. Prednisone 2.5 mg p.o. daily. ALLERGIES: 1. Ciprofloxacin. 2. Levofloxacin. 3. Penicillin. 4. Erythromycin. 5. Sulfa antibiotics. 6. Adhesive. 7. Lanolin. 8. Tetanus immune globulin. PSYCHOSOCIAL HISTORY: She is . She lives with her . She has 2 adult children, a son and a daughter, who both live nearby in [place]. She has 1 grandchild. She is a nonsmoker. 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 There is 1 platform step to get into the house, but when she is there she must live on several different levels with many steps. FAMILY HISTORY: Noncontributory. REVIEW OF SYSTEMS: She has shortness of breath with exertion. She denies cough. Her weight has been staying stable or gradually gaining weight recently. She had considerably weight loss of approximately 30 pounds due to loss of appetite between and of last year. She denies fever or chills. She denies chest pain or palpitations. She denies nausea, vomiting, constipation, or diarrhea. She denies dysuria. She has nocturia approximately 3 times, which is at her baseline. She sleeps well other than being interrupted to urinate. She generally has fatigue and is unclear whether this has changed significantly with the discontinuation of the methylphenidate. She has global weakness. She denies joint swelling or joint pain. She is in good spirits. Otherwise, a 10-point review of systems is negative. PHYSICAL EXAM: VITAL SIGNS: Blood pressure is 122/87, heart rate is 104, respiratory rate is 20, oxygen saturation is 100% on room air, temperature is 36.6 degrees centigrade. Her weight is 74.4 kg for a body mass index of 25.1. GENERAL: This is a well-nourished, well-developed woman sitting up in bed wearing a hospital gown, but otherwise dressed in street clothes. Cooperative and in no acute distress. HEENT: Extraocular movements are intact. Pupils are equal, round, and reactive to light. Mucous members are moist. Dentition is in good condition. NECK: Supple. HEART: There is regular rate and rhythm with no murmurs, rubs, or gallops. LUNGS: Clear to auscultation bilaterally. ABDOMEN: Soft, nontender, nondistended with normoactive bowel sounds and no hepatosplenomegaly. EXTREMITIES: There is no cyanosis or clubbing. There is trace edema pretibially. Radial and dorsalis pedis pulses are 2+ bilaterally. NEUROLOGIC: She is alert and oriented x3. She has a somewhat flat affect. She is hard of hearing. Cranial nerves 2-12 are grossly intact. Regarding motor strength, her hand senior loss control specialist are 5+ bilaterally, triceps and biceps are 4/5 on the left and 5/5 on the right. Deltoids are 4/5 on the left and 5/5 on the right. Shoulder shrug is normal. In the lower extremities, she has weakness bilaterally at the hips 3/5. quadriceps bilaterally are 5/5. Hamstrings bilaterally are 4/5. Sensation is intact to light touch and there is no extinction to double simultaneous stimulation. There is no pronator drift. Deep tendon reflexes are 2+ bilaterally at the biceps, hypoactive bilaterally at the patellar tendon, and 1+ bilaterally at the Achilles tendon. CURRENT LEVEL OF FUNCTION, per the preadmission screen: She was on a regular diet. Grooming was done with standby assist and voice cues. Toileting required standby assist and voice cues for clothing management, and toilet transfer was done with contact guard assist. Regarding bladder, it was noted that she had a straight catheter p.r.n. Bed mobility required standby assist. Transfers required standby assist to contact guard. She used a 4-wheeled walker. Seated balance was independent and standing balance required contact guard to minimal assist. Endurance was fair. She was able to ambulate with contact guard to minimal assist and voice cues for 180 feet using the 4-wheeled walker. Regarding cognition, she was noted to have mild to moderate impairments in attention and problem-solving. On today's exam, there are no significant changes from the preadmission screen. IMPRESSION: This is a 68-year-old woman who was taking apixaban and prasugrel due to recent coronary artery stenting and a pulmonary embolus. She had a prior rehabilitation stay in December of this year at the [facility] in [place] after hospitalization with a pulmonary embolus. Subsequently, she was able to return home and was getting home health rehabilitation services. She was doing quite well, able to walk outside, and was nearing the end of home rehabilitation when she developed weakness and confusion. Eventually, this led to an outpatient MRI of the brain, which showed subarachnoid hemorrhage in the right occipital and parietal regions. She was hospitalized. Apixaban was discontinued. She had hypotension and metoprolol was discontinued. There was tachycardia and discontinuation of methylphenidate. She was dehydrated and received hydration. There was acute kidney injury, which resolved. Metoprolol was restarted at a lower dose for her tachycardia. Prednisone was reduced per prior plan for tapering. It had been prescribed for interstitial nephritis. She received a dose of IVIG for common variable immunodeficiency on the day of hospital discharge. She was otherwise medically stable and appropriate for inpatient rehabilitation. Her goal is to complete a rehabilitation stay and then return home with her and supportive services. For a safe discharge, she will need to achieve supervision level for activities of daily living and mobility. She will use a 4-wheeled walker for household distances and may require a wheelchair for community distances. She will need to be able to negotiate stairs with a cane and supervision for safety. She and her family will need to have a good understanding of compensatory strategies as needed to ensure safety. She will have therapy with physical therapy, occupational therapy, and speech and language pathology for 60 minutes per day for each discipline on 5-7 days of the week. Her expected duration of stay is 7-10 days. It is expected that upon discharge she will benefit from home health services including nursing, speech and language pathology, a nurse's aide, occupational therapy, and physical therapy. PLAN: 1. Debility related to deconditioning with mild left-sided weakness, likely due to subarachnoid hemorrhage in the right occipital and parietal lobes. PT and OT to optimize mobility and activities of daily living toward the modified independent level. 2. Cognitive impairment. Assessment and treatment per Speech and Language Pathology. 3. Tachycardia may be related to anemia versus underlying heart rhythm abnormality. Continue metoprolol. If she remains tachycardic and blood pressure can sustain, consider titration of metoprolol. 4. Hypothyroidism. Continue levothyroxine. 5. Coronary artery disease status post stenting. Continue Prasugrel. Nitroglycerin is prescribed, but she has had a recent nuclear stress test which was negative for ischemia. She also has had a recent normal echocardiogram. 6. Depression and there was a mention in the chart of bipolar disorder. Continue bupropion, and divalproex. 7. Interstitial nephritis. Renal function is currently normal. Prednisone is tapered from 5 mg to 2.5 mg daily at the end of her hospitalization. Continue prednisone. There is no need to repeat blood tests regarding renal function. She was previously on furosemide, but she does not have congestive heart failure. Unclear why she may have needed diuresis. 8. Anemia. Bone marrow is healthy with brisk reticulocytosis. Hemolysis, for which common variable immunodeficiency as a risk factor, was ruled out. Stool Hemoccult was negative x1. Consider repeating a CBC in approximately a week to ensure that her blood counts are improving. If she has any acute symptoms related to anemia, would repeat the CBC. Anemia may be contributing to tachycardia. 9. Contact isolation for extended spectrum beta lactamase producing Klebsiella. She shows no signs or symptoms of a urinary tract infection. 10. Prophylaxis. She will remain on Prasugrel. She has ambulated greater than 180 feet. She has had a full 3 months treatment with apixaban for a provoked pulmonary embolus, and especially with her recent subarachnoid hemorrhage there is no indication for anticoagulation. 11. Followup. FOLLOWUP: Ashley Burns is her primary care provider. She will follow up per her usual schedule with her typing pool supervisor. She will follow up with neurologist, Dr. De Paz, in approximately 4-6 weeks. There is no need for her to follow up with Neurosurgery. /[id number]/MODL MTDD
[2019-02-24] MEDS: METOPROLOL TARTRATE 25 MG TAB PO SCH (21:55)
[2019-02-25] MEDS: LEVOTHYROXINE 75 MCG TAB PO SCH (04:08)
[2019-02-25] MEDS: buPROPion XL 150 MG TAB PO SCH (04:08)
[2019-02-25] MEDS: DIVALPROEX NA 500 MG TAB PO SCH ×4 (04:08→16:29)
[2019-02-25] MEDS: predniSONE 5 MG TAB PO SCH (08:11)
[2019-02-25] MEDS: PRASUGREL HCL 10 MG TAB PO SCH (08:12)
[2019-02-25] MEDS: METOPROLOL TARTRATE 25 MG TAB PO SCH ×3 (08:12→20:46)
--- NOTE | 2019-02-25 09:52 | SOAPPROG ---
SOAP Progress Note Assessment/Plan: Assessment: 1. DEBILITY RELATED TO DECONDITIONING WITH MILD LEFT-SIDED HEMIPARESIS, LIKELY DUE TO SUBARACHNOID HEMORRHAGE IN THE RIGHT OCCIPITAL AND PARIETAL REGIONS. PT AND OT CONSULTED TO OPTIMIZE MOBILITIES AND ADLS WITH GOAL OF MODIFIED INDEPENDENCE. 2. COGNITIVE IMPAIRMENT LIKELY DUE TO SUBARACHNOID HEMORRHAGE. SPEECH AND LANGUAGE PATHOLOGY CONSULTED. 3. TACHYCARDIA-ANEMIA VERSES UNDERLYING RHYTHM ABNORMALITY. ON 02/25 EXAM PATIENT HAS IRREGULARLY IRREGULAR HEART RATE. CONTINUE METOPROLOL. BLOOD PRESSURE A.M. OF 02/25 109/76 SO INCREASING METOPROLOL NOT AN OPTION AT THIS POINT. 4. HYPOTHYROIDISM. CONTINUE LEVOTHYROXINE. 5. CORONARY ARTERY DISEASE-STATUS POST STENTING. NO COMPLAINTS OF ANGINAL LIKE SYMPTOMS. CONTINUE PRASUGREL. NITROGLYCERIN P.R.N.. PATIENT HAS HAD RECENT NUCLEAR STRESS TEST WHICH WAS NEGATIVE FOR ISCHEMIA. ALSO HAS HAD RECENT NORMAL ECHOCARDIOGRAM. 6. DEPRESSION-CONTINUE BUPROPION AND DIVALPROEX 7. INTERSTITIAL NEPHRITIS. BUN AND CREATININE FROM 02/23 10/0.9. PREDNISONE IS TAPERED FROM 5 MG TO 2.5 MG DAILY AT THE END OF HER HOSPITALIZATION. CONTINUE PREDNISONE. SHE WAS PREVIOUSLY ON FUROSEMIDE BUT SHE DOES NOT HAVE CONGESTIVE HEART FAILURE. 8. ANEMIA. HEMOGLOBIN AND HEMATOCRIT FROM 02/24 8./28.1 BONE MARROW SHOWS BRISK RETICULOCYTOSIS. HEMOLYSIS, FOR WHICH COMMON VARIABLE IMMUNODEFICIENCY A RISK FACTOR WAS RULED OUT. STOOL HEMOCCULT WAS NEGATIVE X1. REPEAT CBC IN 1 WEEK TO ENSURE HER BLOOD COUNTS ARE IMPROVING. ANEMIA MAY BE CONTRIBUTING TO TACHYCARDIA. 9. CONTACT ISOLATION FOR EXTENDED SPECTRUM BETA LACTAMASE PRODUCING KLEBSIELLA. SHE SHOWS NO SIGNS OR SYMPTOMS OF URINARY TRACT INFECTION. DENIES DYSURIA OR SUPRAPUBIC PAIN ON 02/25 EXAM. 10. PROPHYLAXIS. SHE WILL REMAIN ON PRASUGREL. SHE HAS AMBULATED GREATER THAN 180 FT. SHE HAS HAD A FULL 3 MONTHS TREATMENT WITH APIXABAN FOR A PULMONARY EMBOLUS AND WITH HER RECENT SUBARACHNOID HEMORRHAGE, THERE IS NO INDICATION FOR ANTICOAGULATION 11. . FOLLOW-UP AND HER PRIMARY CARE PHYSICIAN IS SUZAN HENRY. SHE WILL FOLLOW UP WITH HER USUAL SCHEDULE WITH HER PALLETIZER OPERATOR. FOLLOW UP WITH HER NEUROLOGIST DR. REYNOLDS 4-6 WEEKS. THERE IS NO NEED FOR HER TO FOLLOW UP WITH NEUROSURGERY. Plan: 02/25/19 09:42 Subjective: SHE REPORTS THAT SHE CONTINUES TO MAKE IMPROVEMENT REGARDING MILD LEFT-SIDED WEAKNESS. DENIES HEADACHE. DENIES VISUAL DISTURBANCE. DENIES CHEST PAIN OR ANGINAL LIKE SYMPTOMS. DENIES DYSURIA. Objective: Vital Signs Temp Pulse Resp BP Pulse Ox 36.6 C 102 H 18 109/76 98 02/25/19 07:22 02/25/19 08:12 02/25/19 07:22 02/25/19 08:12 02/25/19 07:22 02/24/19 02/25/19 02/26/19 05:59 05:59 05:59 Intake Total 300 240 Output Total 100 Balance 200 240 Physical Exam - Physical Exam General Appearance: WD/WN, alert, no apparent distress Neck: supple, normal inspection Respiratory: lungs clear, normal breath sounds Cardiac/Chest: irregularly irregular, No edema Abdomen: normal bowel sounds, non-tender, soft Skin: normal color, warm/dry Extremities: No normal range of motion (DECREASED ACTIVE LEFT GLENOHUMERAL FOR FLEXION AND ABDUCTION, NORMAL PASSIVE LEFT GLENOHUMERAL RANGE OF MOTION), No swelling, No Neeta's sign Neuro/Psych: alert, normal mood/affect, oriented x 3, motor weakness (MILD LEFT UPPER AND LEFT LOWER EXTREMITY HEMIPARESIS. WEAK LEFT HIP FLEXORS.) ICD10 Worksheet Patient Problems: Problems Problem Status Onset Acute electrocardiogram changes Acute Acute hyperkalemia Acute Acute renal failure Acute Dyspnea Acute Generalized weakness Acute History of ESBL Klebsiella pneumoniae infection Acute Myopathic disease or syndrome Acute PSVT (paroxysmal supraventricular tachycardia) Acute Subarachnoid hemorrhage Acute
[2019-02-26] MEDS: buPROPion XL 150 MG TAB PO SCH (05:22)
[2019-02-26] MEDS: LEVOTHYROXINE 75 MCG TAB PO SCH (05:22)
[2019-02-26] MEDS: DIVALPROEX NA 500 MG TAB PO SCH ×4 (05:22→16:07)
[2019-02-26] MEDS: PRASUGREL HCL 10 MG TAB PO SCH (08:10)
[2019-02-26] MEDS: predniSONE 5 MG TAB PO SCH (08:10)
[2019-02-26] MEDS: METOPROLOL TARTRATE 25 MG TAB PO SCH ×3 (08:11→21:55)
--- NOTE | 2019-02-26 09:53 | SOAPPROG ---
SOAP Progress Note Assessment/Plan: Assessment: 1. DEBILITY RELATED TO DECONDITIONING WITH MILD LEFT-SIDED HEMIPARESIS, LIKELY DUE TO SUBARACHNOID HEMORRHAGE IN THE RIGHT OCCIPITAL AND PARIETAL REGIONS. PT AND OT CONSULTED TO OPTIMIZE MOBILITIES AND ADLS WITH GOAL OF MODIFIED INDEPENDENCE. 2. COGNITIVE IMPAIRMENT LIKELY DUE TO SUBARACHNOID HEMORRHAGE. SPEECH AND LANGUAGE PATHOLOGY CONSULTED. 3. TACHYCARDIA-ANEMIA VERSES UNDERLYING RHYTHM ABNORMALITY. SHE IS WEARING CARDIAC MONITORING DEVICE. WILL ASK CASE MANAGEMENT TO CONTACT HER LOADING RACK SUPERVISOR TO WHETHER SHE HAS BEEN DIAGNOSED WITH SPECIFIC RHYTHM ABNORMALITY AND FOR THEIR RECOMMENDATIONS ON TREATMENT REGARDING THIS. ON EXAM PATIENT HAS IRREGULARLY IRREGULAR HEART RATE. CONTINUE METOPROLOL. BLOOD PRESSURE A.M. OF 02/25 109/76 SO INCREASING METOPROLOL NOT AN OPTION AT THIS POINT. 4. HYPOTHYROIDISM. CONTINUE LEVOTHYROXINE. 5. CORONARY ARTERY DISEASE-STATUS POST STENTING. NO COMPLAINTS OF ANGINAL LIKE SYMPTOMS. CONTINUE PRASUGREL. NITROGLYCERIN P.R.N.. PATIENT HAS HAD RECENT NUCLEAR STRESS TEST WHICH WAS NEGATIVE FOR ISCHEMIA. ALSO HAS HAD RECENT NORMAL ECHOCARDIOGRAM. 6. DEPRESSION-CONTINUE BUPROPION AND DIVALPROEX 7. INTERSTITIAL NEPHRITIS. BUN AND CREATININE FROM 02/23 10/0.9. PREDNISONE IS TAPERED FROM 5 MG TO 2.5 MG DAILY AT THE END OF HER HOSPITALIZATION. CONTINUE PREDNISONE. SHE WAS PREVIOUSLY ON FUROSEMIDE BUT SHE DOES NOT HAVE CONGESTIVE HEART FAILURE. 8. ANEMIA. HEMOGLOBIN AND HEMATOCRIT FROM 02/24 8.02/28.1 BONE MARROW SHOWS BRISK RETICULOCYTOSIS. SHE IS NOTED TO BE FATIGUED AND THIS IS PROBABLY DUE TO ANEMIA. DR. MACK TO CONSIDER HEMATOLOGY CONSULT ON WEDNESDAY. HEMOLYSIS, FOR WHICH COMMON VARIABLE IMMUNODEFICIENCY A RISK FACTOR WAS RULED OUT. STOOL HEMOCCULT WAS NEGATIVE X1. REPEAT CBC IN 1 WEEK TO ENSURE HER BLOOD COUNTS ARE IMPROVING. ANEMIA MAY BE CONTRIBUTING TO TACHYCARDIA. 9. CONTACT ISOLATION FOR EXTENDED SPECTRUM BETA LACTAMASE PRODUCING KLEBSIELLA. SHE SHOWS NO SIGNS OR SYMPTOMS OF URINARY TRACT INFECTION. DENIES DYSURIA OR SUPRAPUBIC PAIN ON 02/25 EXAM. 10. PROPHYLAXIS. SHE WILL REMAIN ON PRASUGREL. SHE HAS AMBULATED GREATER THAN 180 FT. SHE HAS HAD A FULL 3 MONTHS TREATMENT WITH APIXABAN FOR A PULMONARY EMBOLUS AND WITH HER RECENT SUBARACHNOID HEMORRHAGE, THERE IS NO INDICATION FOR ANTICOAGULATION 11. . FOLLOW-UP AND HER PRIMARY CARE PHYSICIAN IS SUZAN HENRY. SHE WILL FOLLOW UP WITH HER USUAL SCHEDULE WITH HER COMMUNICATIONS TOWER TECHNICIAN. FOLLOW UP WITH HER NEUROLOGIST DR. REYNOLDS 4-6 WEEKS. CASE MANAGEMENT TO CONTACT HER LOADING RACK SUPERVISOR FOR FOLLOW-UP FOLLOWING HOSPITAL DISCHARGE. THERE IS NO NEED FOR HER TO FOLLOW UP WITH NEUROSURGERY. 02/26/19 09:49 Subjective: SHE REPORTS THAT SHE FEELS FATIGUED BUT IS OTHERWISE TOLERATING THERAPIES WITHOUT MUCH DIFFICULTY. SHE DENIES SHORTNESS OF BREATH OR ANGINAL LIKE SYMPTOMS. DENIES NEW ONSET OF UPPER/LOWER EXTREMITY SENSORY OR MOTOR CHANGES. Objective: Vital Signs Temp Pulse Resp BP Pulse Ox 36.6 C 121 H 18 107/75 97 02/26/19 07:20 02/26/19 08:11 02/26/19 07:20 02/26/19 08:11 02/26/19 07:20 02/25/19 02/26/19 02/27/19 05:59 05:59 05:59 Intake Total 300 1140 240 Output Total 100 850 Balance 200 290 240 Physical Exam - Physical Exam General Appearance: WD/WN, alert, no apparent distress EENT: pale conjunctiva (R), pale conjunctiva (L) Respiratory: lungs clear, normal breath sounds Cardiac/Chest: irregularly irregular, other (EXTERNAL CARDIAC MONITORING DEVICE) Abdomen: normal bowel sounds, non-tender, soft Skin: warm/dry, No normal color (SLIGHTLY PALE.) Extremities: No swelling, No Neeta's sign Neuro/Psych: alert, normal mood/affect, oriented x 3, motor weakness (MILD LEFT UPPER AND LOWER EXTREMITY WEAKNESS BUT HAS ANTIGRAVITY STRENGTH IN PROXIMAL DISTAL MUSCLE GROUPS LEFT UPPER AND LOWER EXTREMITY.) ICD10 Worksheet Patient Problems: Problems Problem Status Onset Acute electrocardiogram changes Acute Acute hyperkalemia Acute Acute renal failure Acute Dyspnea Acute Generalized weakness Acute History of ESBL Klebsiella pneumoniae infection Acute Myopathic disease or syndrome Acute PSVT (paroxysmal supraventricular tachycardia) Acute Subarachnoid hemorrhage Acute
[2019-02-27] MEDS: buPROPion XL 150 MG TAB PO SCH (05:42)
[2019-02-27] MEDS: DIVALPROEX NA 500 MG TAB PO SCH ×4 (05:43→16:33)
[2019-02-27] MEDS: LEVOTHYROXINE 75 MCG TAB PO SCH (05:43)
[2019-02-27] MEDS: predniSONE 5 MG TAB PO SCH (08:49)
[2019-02-27] MEDS: PRASUGREL HCL 10 MG TAB PO SCH (08:49)
[2019-02-27] MEDS: METOPROLOL TARTRATE 25 MG TAB PO SCH ×3 (08:49→20:06)
--- NOTE | 2019-02-27 09:32 | SOAPPROG ---
SOAP Progress Note Assessment/Plan: Assessment: 1. DEBILITY RELATED TO DECONDITIONING WITH MILD LEFT-SIDED HEMIPARESIS, LIKELY DUE TO SUBARACHNOID HEMORRHAGE IN THE RIGHT OCCIPITAL AND PARIETAL REGIONS. NEUROLOGICAL EXAM REMAINED STABLE. HAS FUNCTIONAL LEFT UPPER AND LEFT LOWER EXTREMITY STRENGTH. NO NEW MOTOR OR SENSORY DEFICITS NOTED ON SERIAL EXAMS PT AND OT CONSULTED TO OPTIMIZE MOBILITIES AND ADLS WITH GOAL OF MODIFIED INDEPENDENCE. 2. COGNITIVE IMPAIRMENT LIKELY DUE TO SUBARACHNOID HEMORRHAGE. SPEECH AND LANGUAGE PATHOLOGY CONSULTED. 3. TACHYCARDIA-ANEMIA VERSES UNDERLYING RHYTHM ABNORMALITY. SHE IS WEARING CARDIAC MONITORING DEVICE. 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 SHE IS WEARING A EXTERNAL RECONDITIONER. SHE CANNOT RECALL WHO HER COTTON BAG SEWER IS AND THERE ARE NO RECENT PROGRESS NOTES FROM HER COTTON BAG SEWER. WILL ASK LEE ANN GA TO CONTACT HER COTTON BAG SEWER REGARDING THE EXTERNAL MONITOR AND CARDIOLOGY INPUT REGARDING POSSIBLE MEDICATIONS FOR ARRHYTHMIA. ALSO TO FOLLOW UP WITH COTTON BAG SEWER FOLLOWING DISCHARGE 4. HYPOTHYROIDISM. CONTINUE LEVOTHYROXINE. 5. CORONARY ARTERY DISEASE-STATUS POST STENTING. NO COMPLAINTS OF ANGINAL LIKE SYMPTOMS. CONTINUE PRASUGREL. NITROGLYCERIN P.R.N.. PATIENT HAS HAD RECENT NUCLEAR STRESS TEST WHICH WAS NEGATIVE FOR ISCHEMIA. ALSO HAS HAD RECENT NORMAL ECHOCARDIOGRAM. SHE HAS +1 PRETIBIAL EDEMA. NO SHORTNESS OF BREATH AND LUNGS ARE CLEAR ON 02/27 EXAM. ADVISED PATIENT TO KEEP FEET ELEVATED ABOVE LEVEL OF HEART FOR AT LEAST 20-30 MINUTES SEVERAL TIMES A DAY. IF EDEMA DOES NOT RESOLVE, MAY WANT TO CONSIDER 1 TIME DOSE OF LASIX. 02/26 INS/OUTS 1140 /850. 6. DEPRESSION-CONTINUE BUPROPION AND DIVALPROEX 7. INTERSTITIAL NEPHRITIS. BUN AND CREATININE FROM 02/23 10/0.9. PREDNISONE IS TAPERED FROM 5 MG TO 2.5 MG DAILY AT THE END OF HER HOSPITALIZATION. CONTINUE PREDNISONE. SHE WAS PREVIOUSLY ON FUROSEMIDE BUT SHE DOES NOT HAVE CONGESTIVE HEART FAILURE. 8. ANEMIA. HEMOGLOBIN AND HEMATOCRIT FROM 02/24 8./28.1 BONE MARROW SHOWS BRISK RETICULOCYTOSIS. SHE IS NOTED TO BE FATIGUED AND THIS IS PROBABLY DUE TO ANEMIA. DR. MACK TO CONSIDER HEMATOLOGY CONSULT ON WEDNESDAY. HEMOLYSIS, FOR WHICH COMMON VARIABLE IMMUNODEFICIENCY A RISK FACTOR WAS RULED OUT. STOOL HEMOCCULT WAS NEGATIVE X1. REPEAT CBC IN 1 WEEK TO ENSURE HER BLOOD COUNTS ARE IMPROVING. ANEMIA MAY BE CONTRIBUTING TO TACHYCARDIA. 9. CONTACT ISOLATION FOR EXTENDED SPECTRUM BETA LACTAMASE PRODUCING KLEBSIELLA. SHE SHOWS NO SIGNS OR SYMPTOMS OF URINARY TRACT INFECTION. DENIES DYSURIA OR SUPRAPUBIC PAIN ON 02/25 EXAM. 10. PROPHYLAXIS. SHE WILL REMAIN ON PRASUGREL. SHE HAS AMBULATED GREATER THAN 180 FT. SHE HAS HAD A FULL 3 MONTHS TREATMENT WITH APIXABAN FOR A PULMONARY EMBOLUS AND WITH HER RECENT SUBARACHNOID HEMORRHAGE, THERE IS NO INDICATION FOR ANTICOAGULATION 11. . FOLLOW-UP AND HER PRIMARY CARE PHYSICIAN IS SUZAN HENRY. SHE WILL FOLLOW UP WITH HER USUAL SCHEDULE WITH HER HANDLE ROUNDER OPERATOR. FOLLOW UP WITH HER NEUROLOGIST DR. REYNOLDS 4-6 WEEKS. CASE MANAGEMENT TO CONTACT HER COTTON BAG SEWER FOR FOLLOW-UP FOLLOWING HOSPITAL DISCHARGE. THERE IS NO NEED FOR HER TO FOLLOW UP WITH NEUROSURGERY. 02/27/19 09:27 Subjective: SHE REPORTS SHE HAS A LITTLE BIT OF LOWER EXTREMITY SWELLING INVOLVING THE LEGS AND FEET. SHE DENIES SHORTNESS OF BREATH. SHE DENIES ANGINAL LIKE SYMPTOMS. NO JAW OR TONGUE CLAUDICATION. DENIES HEADACHE. Objective: Vital Signs Temp Pulse Resp BP Pulse Ox 36.4 C 103 H 16 109/76 96 02/26/19 20:00 02/27/19 08:47 02/27/19 08:47 02/27/19 08:47 02/27/19 08:47 02/26/19 02/27/19 02/28/19 05:59 05:59 05:59 Intake Total 1140 1020 Output Total 850 300 Balance 290 720 Physical Exam - Physical Exam General Appearance: WD/WN, alert, no apparent distress Neck: supple, normal inspection Respiratory: lungs clear, normal breath sounds, No crackles, No rales, No rhonchi, No wheezing Cardiac/Chest: edema (PLUS ONE PRETIBIAL EDEMA), irregularly irregular, No diastolic murmur, No systolic murmur Abdomen: normal bowel sounds, non-tender, soft, other (NO SUPRAPUBIC TENDERNESS) Skin: normal color, warm/dry Extremities: swelling, No Neeta's sign Neuro/Psych: other (NEUROLOGICAL STATUS STABLE) ICD10 Worksheet Patient Problems: Problems Problem Status Onset Acute electrocardiogram changes Acute Acute hyperkalemia Acute Acute renal failure Acute Dyspnea Acute Generalized weakness Acute History of ESBL Klebsiella pneumoniae infection Acute Myopathic disease or syndrome Acute PSVT (paroxysmal supraventricular tachycardia) Acute Subarachnoid hemorrhage Acute
[2019-02-28] MEDS: LEVOTHYROXINE 75 MCG TAB PO SCH (04:58)
[2019-02-28] MEDS: DIVALPROEX NA 500 MG TAB PO SCH ×4 (04:59→16:31)
[2019-02-28] MEDS: buPROPion XL 150 MG TAB PO SCH (04:59)
[2019-02-28] MEDS: METOPROLOL TARTRATE 25 MG TAB PO SCH ×3 (08:26→21:04)
[2019-02-28] MEDS: PRASUGREL HCL 10 MG TAB PO SCH (08:26)
[2019-02-28] MEDS: predniSONE 5 MG TAB PO SCH (08:27)
--- NOTE | 2019-02-28 12:58 | PDOREHIP ---
Admission [facility] - Admission - 3 Day Assessment Period Admission Date/Day 1: 02/24/19 Day 2: 02/25/19 Day 3: 02/26/19 - Active Diagnoses Comorbidities and Co-existing Conditions at Admission: 17782. None of the Above - Skin Conditions Unhealed Pressure Ulcer (1 or more/Stage 1 or >)-Admission: 0. No # Stage 1 Pressure Ulcers-Admission: 0 # Stage 2 Pressure Ulcers-Admission: 0 # Stage 3 Pressure Ulcers-Admission: 0 # Stage 4 Pressure Ulcers-Admission: 0 # Unstageable Pressure Ulcers (Non-remove Dress)-Admission: 0 # Unstageable Pressure Ulcers (Slough/Eschar)-Admission: 0 # Unstageable Pressure Ulcers (Deep Tissue Injury)-Admission: 0
--- NOTE | 2019-02-28 12:58 | SOAPPROG ---
SOAP Progress Note Assessment/Plan: Assessment: Debility related to deconditioning with mild left-sided weakness, likely due to subarachnoid hemorrhage in the right occipital and parietal lobes. * Initial functional independence measure is 76 on 02/20/2019. Standby assist for bed mobility. Transfers are done with standby assist using a 4 wheeled walker. Ambulated 300 ft with standby assist and a 4 wheeled walker. Climbed and descended for stairs with 2 rails, standby assist to contact guard assist. Has low endurance. She was anxious w she used a front wheeled walker but does better with a 4 wheeled walker, and she can sit on it if she needs to stop. Grooming and hygiene were done standing and then seated due to decreased endurance. Upper body and lower body dressing required setup and standby assist. * Continue PT and OT to optimize mobility and activities of daily living toward the modified independent level. Cognitive impairment. * Deficits to attention and memory. Good recall for safety precautions and able to problem solve. Attention issues may be due to discontinuation of methylphenidate during her hospitalization. * Continue treatment per Speech and Language Pathology. Nocturia. Check postvoid residual x1 and p.r.n.. No signs or symptoms of urinary tract infection. Possibly due to centralization of edema at night when she is hard optimal. Tachycardia may be related to anemia versus underlying heart rhythm abnormality. Continue metoprolol. * Consider titration of metoprolol. Hypothyroidism. Continue levothyroxine. Coronary artery disease status post stenting. Continue Prasugrel. Nitroglycerin is prescribed, but she has had a recent nuclear stress test which was negative for ischemia. She also has had a recent normal echocardiogram. Depression and there was a mention in the chart of bipolar disorder. Continue bupropion, and divalproex. Interstitial nephritis. Renal function is currently normal. Prednisone is tapered from 5 mg to 2.5 mg daily at the end of her hospitalization. Continue prednisone. There is no need to repeat blood tests regarding renal function. She was previously on furosemide, but she does not have congestive heart failure. Unclear why she may have needed diuresis. Anemia. Bone marrow is healthy with brisk reticulocytosis. Hemolysis, for which common variable immunodeficiency as a risk factor, was ruled out. Stool Hemoccult was negative x1. Consider repeating a CBC in approximately a week to ensure that her blood counts are improving. If she has any acute symptoms related to anemia, would repeat the CBC. Anemia may be contributing to tachycardia. Contact isolation for extended spectrum beta lactamase producing Klebsiella. She shows no signs or symptoms of a urinary tract infection. Prophylaxis. She will remain on Prasugrel. She has ambulated greater than 180 feet. She has had a full 3 months treatment with apixaban for a provoked pulmonary embolus, and especially with her recent subarachnoid hemorrhage there is no indication for anticoagulation. DISPOSITION: Attended staffing, 15 min, 02/28/2019. Discussed with case management, dietitian, nursing, PT, OT, LAW FIRM CONSULTANT. Lives with and has multiple stairs to climb at home. Tentative discharge date set for 03/07/2019. FOLLOWUP: Ashley Burns is her primary care provider. She will follow up per her usual schedule with her city route driver. She will follow up with neurologist, Dr. De Paz, in approximately 4-6 weeks. There is no need for her to follow up with Neurosurgery. 02/28/19 13:28 Subjective: Reports being up overnight multiple times to urinate and having reduced sleep in fatigued today. No dysuria, fevers, chills, or flank pain. Otherwise feels she is doing well. No cough or dyspnea. Has some swelling of the feet. Objective: Vital Signs Temp Pulse Resp BP Pulse Ox 36.4 C 101 H 15 121/70 H 97 02/28/19 05:05 02/28/19 08:26 02/28/19 05:05 02/28/19 08:26 02/28/19 05:05 02/27/19 02/28/19 03/01/19 05:59 05:59 05:59 Intake Total 1020 1640 120 Output Total 300 1675 Balance 720 -35 120 - Time Spent With Patient Time Spent With Patient: Greater than 35 min floor time today, including more than 50% of time in coordination of care during staffing meeting, and counseling patient. Physical Exam - Physical Exam General Appearance: WD/WN, alert, no apparent distress Respiratory: normal breath sounds, No crackles, No rhonchi, No wheezing Cardiac/Chest: regular rate, rhythm, edema (1+ bilateral pretibial), No diastolic murmur, No systolic murmur Skin: normal color, warm/dry Neuro/Psych: alert, normal mood/affect, oriented x 3 ICD10 Worksheet Patient Problems: Problems Problem Status Onset Acute electrocardiogram changes Acute Acute hyperkalemia Acute Acute renal failure Acute Dyspnea Acute Generalized weakness Acute History of ESBL Klebsiella pneumoniae infection Acute Myopathic disease or syndrome Acute PSVT (paroxysmal supraventricular tachycardia) Acute Subarachnoid hemorrhage Acute
[2019-03-01] MEDS: LEVOTHYROXINE 75 MCG TAB PO SCH (04:27)
[2019-03-01] MEDS: DIVALPROEX NA 500 MG TAB PO SCH ×4 (04:27→16:04)
[2019-03-01] MEDS: buPROPion XL 150 MG TAB PO SCH (04:27)
[2019-03-01] MEDS: PRASUGREL HCL 10 MG TAB PO SCH (08:05)
[2019-03-01] MEDS: predniSONE 5 MG TAB PO SCH (08:05)
[2019-03-01] MEDS: METOPROLOL TARTRATE 25 MG TAB PO SCH ×3 (08:54→20:32)
--- NOTE | 2019-03-01 11:58 | SOAPPROG ---
SOAP Progress Note Assessment/Plan: Assessment: Debility related to deconditioning with mild left-sided weakness, likely due to subarachnoid hemorrhage in the right occipital and parietal lobes. * Initial functional independence measure is 76 on 02/20/2019. Standby assist for bed mobility. Transfers are done with standby assist using a 4 wheeled walker. Ambulated 300 ft with standby assist and a 4 wheeled walker. Climbed and descended for stairs with 2 rails, standby assist to contact guard assist. Has low endurance. She was anxious w she used a front wheeled walker but does better with a 4 wheeled walker, and she can sit on it if she needs to stop. Grooming and hygiene were done standing and then seated due to decreased endurance. Upper body and lower body dressing required setup and standby assist. * Continue PT and OT to optimize mobility and activities of daily living toward the modified independent level. Cognitive impairment. * Deficits to attention and memory. Good recall for safety precautions and able to problem solve. Attention issues may be due to discontinuation of methylphenidate during her hospitalization. * Continue treatment per Speech and Language Pathology. Nocturia. Postvoid residual insignificant at 117 cc.. No signs or symptoms of urinary tract infection. Possibly due to centralization of edema at night when she is hard optimal. Edema, with weight gain 1.3 kg from 02/24/2019 to 03/01/2019. Check CMP. Consider diuresis. Etiology unclear with normal echo and chest CT without thromboembolic disease and resolution of prior PE earlier this month. Tachycardia may be related to anemia versus underlying heart rhythm abnormality. Continue metoprolol. * Consider titration of metoprolol, but BP may not tolerate. * Check CBC. Hypothyroidism. Continue levothyroxine. Coronary artery disease status post stenting. Continue Prasugrel. Nitroglycerin is prescribed, but she has had a recent nuclear stress test which was negative for ischemia. She also has had a recent normal echocardiogram. Depression and there was a mention in the chart of bipolar disorder. Continue bupropion, and divalproex. Interstitial nephritis. Renal function is currently normal. Prednisone is tapered from 5 mg to 2.5 mg daily at the end of her hospitalization. Continue prednisone. There is no need to repeat blood tests regarding renal function. She was previously on furosemide, but she does not have congestive heart failure. Unclear why she may have needed diuresis. Anemia. Bone marrow is healthy with brisk reticulocytosis. Hemolysis, for which common variable immunodeficiency as a risk factor, was ruled out. Stool Hemoccult was negative x1. Consider repeating a CBC in approximately a week to ensure that her blood counts are improving. If she has any acute symptoms related to anemia, would repeat the CBC. Anemia may be contributing to tachycardia. Contact isolation for extended spectrum beta lactamase producing Klebsiella. She shows no signs or symptoms of a urinary tract infection. Prophylaxis. She will remain on Prasugrel. She has ambulated greater than 180 feet. She has had a full 3 months treatment with apixaban for a provoked pulmonary embolus, and especially with her recent subarachnoid hemorrhage there is no indication for anticoagulation. DISPOSITION: Attended staffing, 15 min, 02/28/2019. Discussed with case management, dietitian, nursing, PT, OT, ELECTRONIC PUBLICATIONS SPECIALIST. Lives with and has multiple stairs to climb at home. Tentative discharge date set for 03/07/2019. FOLLOWUP: Ashley Burns is her primary care provider. She will follow up per her usual schedule with her motor polarizer. She will follow up with neurologist, Dr. De Paz, in approximately 4-6 weeks. There is no need for her to follow up with Neurosurgery. 02/28/19 13:28 03/01/19 11:40 Subjective: Notices swelling, especially in the left leg. Denies cough or dyspnea. No fevers or chills. Not in pain. Objective: Vital Signs Temp Pulse Resp BP Pulse Ox 36.6 C 116 H 16 115/73 94 03/01/19 08:00 03/01/19 10:59 03/01/19 08:00 03/01/19 10:59 03/01/19 08:00 02/28/19 03/01/19 03/02/19 05:59 05:59 05:59 Intake Total 1640 480 200 Output Total 1675 1150 200 Balance -35 -670 0 Physical Exam - Physical Exam General Appearance: WD/WN, alert, no apparent distress Respiratory: normal breath sounds, No crackles, No rhonchi, No wheezing Cardiac/Chest: regular rate, rhythm, edema (1+ right pretibial, 1 to 2+ left pretibial.), tachycardia, No diastolic murmur, No systolic murmur Skin: normal color, warm/dry Extremities: No calf tenderness Neuro/Psych: alert, normal mood/affect, oriented x 3 ICD10 Worksheet Patient Problems: Problems Problem Status Onset Acute electrocardiogram changes Acute Acute hyperkalemia Acute Acute renal failure Acute Dyspnea Acute Generalized weakness Acute History of ESBL Klebsiella pneumoniae infection Acute Myopathic disease or syndrome Acute PSVT (paroxysmal supraventricular tachycardia) Acute Subarachnoid hemorrhage Acute
[2019-03-02] MEDS: buPROPion XL 150 MG TAB PO SCH (03:57)
[2019-03-02] MEDS: LEVOTHYROXINE 75 MCG TAB PO SCH (03:58)
[2019-03-02] MEDS: DIVALPROEX NA 500 MG TAB PO SCH ×4 (03:58→16:42)
[2019-03-02] MEDS: METOPROLOL TARTRATE 25 MG TAB PO SCH ×3 (08:43→20:19)
[2019-03-02] MEDS: PRASUGREL HCL 10 MG TAB PO SCH (08:43)
[2019-03-02] MEDS: predniSONE 5 MG TAB PO SCH (08:43)
--- NOTE | 2019-03-02 11:46 | SOAPPROG ---
SOAP Progress Note Assessment/Plan: Assessment: Debility related to deconditioning with mild left-sided weakness, likely due to subarachnoid hemorrhage in the right occipital and parietal lobes. * Initial functional independence measure is 76 on 02/20/2019. Standby assist for bed mobility. Transfers are done with standby assist using a 4 wheeled walker. Ambulated 300 ft with standby assist and a 4 wheeled walker. Climbed and descended for stairs with 2 rails, standby assist to contact guard assist. Has low endurance. She was anxious w she used a front wheeled walker but does better with a 4 wheeled walker, and she can sit on it if she needs to stop. Grooming and hygiene were done standing and then seated due to decreased endurance. Upper body and lower body dressing required setup and standby assist. * Continue PT and OT to optimize mobility and activities of daily living toward the modified independent level. Cognitive impairment. * Deficits to attention and memory. Good recall for safety precautions and able to problem solve. Attention issues may be due to discontinuation of methylphenidate during her hospitalization. * Continue treatment per Speech and Language Pathology. Nocturia. Postvoid residual insignificant at 117 cc.. No signs or symptoms of urinary tract infection. Possibly due to centralization of edema at night when she is horizontal. Edema, with weight gain 1.3 kg from 02/24/2019 to 03/01/2019. CMP 03/01/2019 with normal renal function, improving albumin at 2.7. Consider diuresis but she is already tachycardic with limited blood pressure reserve.. Etiology unclear with normal echo and chest CT without thromboembolic disease and resolution of prior PE earlier this month. * Chest CT 03/02/2019 with new pulmonary emboli. D/W Dr. Barajas, Heme/Onc. Recommends IV heparin drip, no bolus, as can be stopped rapidly if there are bleeding complications. Heparin drip ordered. Tachycardia may be related to anemia versus underlying heart rhythm abnormality. Continue metoprolol. * Consider titration of metoprolol, but BP may not tolerate. * CBC 03/01/2019 improving anemia. Hypothyroidism. Continue levothyroxine. Coronary artery disease status post stenting. Continue Prasugrel. Nitroglycerin is prescribed, but she has had a recent nuclear stress test which was negative for ischemia. She also has had a recent normal echocardiogram. Depression and there was a mention in the chart of bipolar disorder. Continue bupropion, and divalproex. Interstitial nephritis. Renal function is currently normal. Prednisone is tapered from 5 mg to 2.5 mg daily at the end of her hospitalization. Continue prednisone. There is no need to repeat blood tests regarding renal function. She was previously on furosemide, but she does not have congestive heart failure. Unclear why she may have needed diuresis. Anemia. Bone marrow is healthy with brisk reticulocytosis. Hemolysis, for which common variable immunodeficiency as a risk factor, was ruled out. Stool Hemoccult was negative x1. Consider repeating a CBC in approximately a week to ensure that her blood counts are improving. If she has any acute symptoms related to anemia, would repeat the CBC. Anemia may be contributing to tachycardia. Contact isolation for extended spectrum beta lactamase producing Klebsiella. She shows no signs or symptoms of a urinary tract infection. Prophylaxis. She will remain on Prasugrel. She has ambulated greater than 180 feet. She has had a full 3 months treatment with apixaban for a provoked pulmonary embolus, and especially with her recent subarachnoid hemorrhage there is no indication for anticoagulation. DISPOSITION: Attended staffing, 15 min, 02/28/2019. Discussed with case management, dietitian, nursing, PT, OT, FIBERGLASS QUALITY TECHNICIAN. Lives with and has multiple stairs to climb at home. Tentative discharge date set for 03/07/2019. Discharged to acute [facility], 03/02/2019, for heparin drip. FOLLOWUP: Ashley Burns is her primary care provider. She will follow up per her usual schedule with her provider relations consultant. She will follow up with neurologist, Dr. De Paz, in approximately 4-6 weeks. There is no need for her to follow up with Neurosurgery. 03/02/19 11:47 03/02/19 21:09 03/03/19 12:51 Subjective: Nurse reports nocturia x5. Oxygen saturation has been difficult to obtain due to artificial nails, but she feels better on oxygen. Endurance is improving. She is without complaints otherwise. Objective: Vital Signs Temp Pulse Resp BP Pulse Ox 36.8 C 114 H 16 104/67 98 03/02/19 08:41 03/02/19 08:43 03/02/19 08:41 03/02/19 08:43 03/02/19 08:41 Laboratory Results 03/01/19 12:30 03/01/19 13:40 03/01/19 03/02/19 03/03/19 05:59 05:59 05:59 Intake Total 480 1190 240 Output Total 1150 1450 100 Balance -670 -260 140 Physical Exam - Physical Exam General Appearance: WD/WN, alert, no apparent distress Respiratory: normal breath sounds, No crackles, No rhonchi, No wheezing Cardiac/Chest: regular rate, rhythm, edema (2+ bilateral lower extremities.), No diastolic murmur, No systolic murmur Skin: normal color, warm/dry Neuro/Psych: alert, normal mood/affect, oriented x 3, abnormal gait (With 4 wheeled walker, step through pattern.) ICD10 Worksheet Patient Problems: Problems Problem Status Onset Acute electrocardiogram changes Acute Acute hyperkalemia Acute Acute renal failure Acute Dyspnea Acute Generalized weakness Acute History of ESBL Klebsiella pneumoniae infection Acute Myopathic disease or syndrome Acute PSVT (paroxysmal supraventricular tachycardia) Acute Subarachnoid hemorrhage Acute
[2019-03-02] MEDS ORDERED: IOPAMIDOL (ISOVUE 370) 100 ML BTL IV ONE (19:47)
[2019-03-02] MEDS ORDERED: HEPARIN/DEXTROSE 500 ML IV SCH ×2 (21:00→21:15)
[2019-03-02] MEDS ORDERED: HEPARIN 10,000 UNIT/10 ML MDV (1,000 UNIT/ML) IVP PRN (21:08)
--- NOTE | 2019-03-02 21:34 | PDOREHIP ---
Admission [facility] - Admission - 3 Day Assessment Period Admission Date/Day 1: 02/24/19 Day 2: 02/25/19 Day 3: 02/26/19 - Active Diagnoses Comorbidities and Co-existing Conditions at Admission: 19466. None of the Above Discharge [facility] - Discharge - 3 Day Assessment Period 2 Days Prior to Anticipated Discharge Date: 03/05/19 1 Day Prior to Anticipated Discharge Date: 03/06/19 Anticipated Discharge Date: 03/07/19 - Discharge Skin Conditions Unhealed Pressure Ulcer (1 or more/Stage 1 or >)-Discharge: 0. No # Stage 1 Pressure Ulcers-Discharge: 0 # Stage 2 Pressure Ulcers-Discharge: 0 # of These Stage 2 Pressure Ulcers Present on Admission: 0 # Stage 3 Pressure Ulcers-Discharge: 0 # of These Stage 3 Pressure Ulcers Present on Admission: 0 # Stage 4 Pressure Ulcers-Discharge: 0 # of These Stage 4 Pressure Ulcers Present on Admission: 0 # Unstageable Pressure Ulcers (Non-remove Dress)-Discharge: 0 # These Unstageable Pressure Ulcers (NRD)-Present on Admit: 0 # Unstageable Pressure Ulcers (Slough/Eschar)-Discharge: 0 # These Unstageable Pressure Ulcers(Slough) Present on Admit: 0 # Unstageable Pressure Ulcers (Deep Tissue Injury)-Discharge: 0 # These Unstageable Pressure Ulcers (DTI) Present on Admit: 0
[2019-03-02 22:19] LABS: PLATELET COUNT 255 10^3/uL (150-400)
[2019-03-02 22:29] LABS: INR 0.95 (0.83-1.16); PROTIME(PATIENT) 12.3 SEC (12.0-15.0)
[2019-03-02 22:54] VITALS: BP 144/87
--- NOTE | 2019-03-03 13:42 | GDS ---
[f rep st] DISCHARGE SUMMARY DISCHARGE DIAGNOSIS: Debility following prolonged hospitalization with deconditioning and subarachnoid hemorrhage. DISCHARGE DIAGNOSES: 1. Debility following prolonged hospitalization with deconditioning and subarachnoid hemorrhage. 2. Pulmonary embolus. COMPLICATIONS: She developed edema, hypoxia, and tachycardia. PROCEDURE: She had a chest CT and lower extremity Dopplers, which revealed a DVT and pulmonary emboli. CONSULTATIONS: There were none, but there was discussion with oncologist, Dr. Barajas. HISTORY AND HOSPITAL COURSE: This patient was admitted from [facility]. She presented there on 02/20/2019, with weakness and confusion. Brain MRI had been done as an outpatient due to the symptoms progressing for 1 week. She was diagnosed with a subarachnoid hemorrhage in the left parietal and occipital lobes. She had been taking apixaban due to a pulmonary embolus that was diagnosed greater than 3 months previously and prasugrel due to cardiac stenting in November. The apixaban was discontinued due to her bleed. Chest CT angiography showed resolution of pulmonary emboli, but persistence of a right lower lobe infarct. She had an elevated creatinine at 1.8, which was thought to be related to history of chronic interstitial nephritis as well as dehydration. She had been treated with prednisone for the nephritis, and this was tapered during her hospitalization from 5 mg to 2.5 mg daily. She had acute worsening of chronic anemia and had an abdominal and pelvic CT which ruled out retroperitoneal hemorrhage or any obvious malignancy. The progression of her anemia was attributed to hydration, which she received due to her acute renal insufficiency. Kidney function improved. She had been taking metoprolol for tachycardia. This was held and then restarted at a lower dose. She had hypotension during her stay. 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 She did well initially in rehabilitation. She had improving mobility and was able to ambulate 150 feet or greater using a 4-wheeled walker. She was noted to have hypoxia with ambulation as low as 83% saturation on pulse oximetry. She was able to climb and descend 12 are more stairs using bilateral rails with cues. Activities of daily living generally only required standby assist. She was noted to have tachycardia, hypoxemia and increasing lower extremity swelling. There was a weight gain of 1.3 kg during her stay over 5 days. She was treated with compression stockings and had some improvement in edema; however, with the persistent tachycardia and hypertension, a chest CT was obtained on 03/02/2019, as well as Doppler studies of the lower extremities. The Doppler studies showed thrombosis of the left popliteal vein for 2-3 cm, which had not been seen on prior study 9 days previous. The chest CT showed mild to moderate volume pulmonary embolus in the right lower lobe, left lower lobe, and lingula. Findings were discussed with oncologist, Dr. Barajas, who advised a heparin drip without a bolus. Due to the issues of managing heparin drip, she [facility] DISCHARGE PLAN: [facility]position [facility]. Condition is fair, though she has had considerable improvement in mobility and activities of daily living during her stay. DIET: Regular. MEDICATIONS UPON DISCHARGE: 1. Acetaminophen 325 mg p.o. daily p.r.n. 2. Bupropion XL 450 mg p.o. daily. 3. Divalproex 500 mg p.o. four times daily. 4. IVIG q.28 days. 5. Levothyroxine 75 mcg p.o. daily. 6. Metoprolol 25 mg p.o. three times daily. 7. Nitroglycerin 0.5 mg sublingual q.5 minutes p.r.n. chest pain. 8. Prasugrel 10 mg p.o. daily. 9. Prednisone 2.5 mg p.o. daily. 10. Heparin infusion. ISSUES TO BE ADDRESSED AT FOLLOWUP: 1. Pulmonary emboli. Continue heparin drip. She will have consultation with Oncology regarding risks of bleed compared to benefits of anticoagulation in the setting of common variable immunodeficiency. 2. Recent hemorrhagic stroke. She will be monitored for signs or symptoms of further hemorrhage. She can continue to receive PT & OT in the acute care hospital. She has been doing well enough that she may be able to discharge home rather than return to rehabilitation; however, if she is not ready to go home, she can return to the rehabilitation unit for continued therapies once issues around pulmonary embolus and anticoagulation have been settled. Greater than 30 minutes were spent on this discharge including diagnoses and initial management of pulmonary embolus, medication reconciliation, coordination of care, and counseling patient and her . She was seen and examined on the day of discharge. /[id number]/MODL MTDD
[2019-03-24] MEDS ORDERED: IMMUNE GLOBULIN IV SCH (09:00)
== END 2019-03-02 21:35 | disposition short-term general hospital (02) | DRG 57 ==
LOC: F3E 17:57
PROVIDERS: ADMIT Internal Medicine Hospice and Palliative Medicine; ATTEND Internal Medicine Hospice and Palliative Medicine
DX: I69.054 Hemiplegia and hemiparesis following nontraumatic subarachnoid hemorrhage affecting left non-dominant side (principal); I69.010 Attention and concentration deficit following nontraumatic subarachnoid hemorrhage; I69.014 Frontal lobe and executive function deficit following nontraumatic subarachnoid hemorrhage; R53.1 Weakness; R00.0 Tachycardia, unspecified; Z86.711 Personal history of pulmonary embolism; Z79.01 Long term (current) use of anticoagulants; I25.10 Atherosclerotic heart disease of native coronary artery without angina pectoris; Z95.5 Presence of coronary angioplasty implant and graft; Z79.02 Long term (current) use of antithrombotics/antiplatelets; N11.9 Chronic tubulo-interstitial nephritis, unspecified; Z79.52 Long term (current) use of systemic steroids; D64.9 Anemia, unspecified; R82.71 Bacteriuria; B96.1 Klebsiella pneumoniae [K. pneumoniae] as the cause of diseases classified elsewhere; D83.9 Common variable immunodeficiency, unspecified; F32.9 Major depressive disorder, single episode, unspecified; F31.9 Bipolar disorder, unspecified; M79.7 Fibromyalgia; G47.33 Obstructive sleep apnea (adult) (pediatric); E03.9 Hypothyroidism, unspecified
CPT/HCPCS: 92507-GN; 92523-GN; 97110-GO; 97110-GP; 97116-GP; 97162-GP; 97165-GO; 97530-GO; 97530-GP; 97535-GO; J7512; Q9967

== ENCOUNTER 2019-03-02 21:53 | Inpatient (IN) | payer OTHER, MEDICARE ==
[2019-03-02] MEDS ORDERED: ACETAMINOPHEN 325 MG TAB PO PRN (22:25)
[2019-03-02] MEDS ORDERED: ONDANSETRON 4 MG/2 ML VIAL IVP PRN (22:25)
[2019-03-02] MEDS ORDERED: ONDANSETRON DISINTEGRATING 4 MG TAB PO PRN (22:25)
[2019-03-02] MEDS ORDERED: HEPARIN 10,000 UNIT/10 ML MDV (1,000 UNIT/ML) IVP PRN (22:32)
--- NOTE | 2019-03-02 23:27 | PDGENHP ---
History and Physical - Chief Complaint Lower extremity swelling, PT DVT on imaging - History of Present Illness Source-patient provides history appears reliable. Her is at bedside supplements details. EMR was reviewed. Case discussed with accepting hospice. Patient directly admitted from rehab. HPI - pleasant 68 yo F with pmhx significant for CAD s/p stent 11/2018, subsequent PE (11/2018), HTN, atrial ach, DM II, CKD 3 2/2 interstitial nephritis , CVID receiving IVIg monthly, mood d/o, KRISTI, who presents as transfer/admit from acute Rehab. Patient was recently discharged to inpatient rehab 02/24/19 following hospitalization for subacute subarachnoid hemorrhage. patient with history of LE weakness/atrophy but had since developed acute on chronic symptoms of LE weakness > right and memory deficits thought 2/2 bleed as well as medications. Patient had been doing well during her stay on Rehab however she had increasing LE edema and mild tachycardia today. venous doppler of LE and CTA chest were significant for left popliteal DVT and bilateral subsegmental PEs. Patient denies any cough, SOB, chest pain, palpitations. She had compression stockings in place and notes left lower leg has been more edematous compared to the right but states it has been improving. denies any calf pain. Patient notes she is feeling chilled since arrival to her room on Med/Surg from Rehab but no fevers, nausea/vomiting or other symptoms. History Information - Allergies/Home Medication List Allergies/Adverse Reactions: ciprofloxacin [From Cipro] Allergy (Severe, Verified 02/20/19 15:49) Other-Enter Comments ciprofloxacin HCl [From Cipro] Allergy (Severe, Verified 02/20/19 15:49) Other-Enter Comments levofloxacin [From Levaquin] Allergy (Severe, Verified 02/20/19 15:49) Other-Enter Comments Penicillins Allergy (Severe, Verified 02/20/19 15:49) Anaphylaxis erythromycin lactobionate [From Erythrocin] Allergy (Unknown, Verified 02/20/19 15:49) Other-Enter Comments Sulfa (Sulfonamide Antibiotics) Allergy (Unknown, Verified 02/20/19 15:49) Other-Enter Comments adhesive Allergy (Verified 02/20/19 15:49) lanolin Allergy (Verified 02/20/19 15:49) tetanus immune globulin Allergy (Verified 02/20/19 15:49) Home Medications: Divalproex [Depakote] 500 mg PO QID@04,08,12,16 09/01/17 [Last Taken 02/24/19 16 :01] Levothyroxine [Synthroid 75 mcg (*)] 75 mcg PO DAILY@04 09/01/17 [Last Taken 04:00] buPROPion XL [Wellbutrin 150mg XL] 450 mg PO DAILY@09/01/17 [Last Taken 02/24] Acetaminophen [Tylenol 325mg (*)] 325 mg PO DAILY PRN 02/07/19 [Last Taken Unknown] Ivig Gammunex 1 ea IV Q28D 02/20/19 [Last Taken 02/24/19 13:13 40GM] I have personally reviewed and updated: family history, medical history, social history, surgical history - Past Medical History Additional medical history: Hypothyroidism, Atrial tachycardia. CVID on monthly IVIG. Anemia. CAD s/p LAD and diagonal stents 11/2018. H/O PE 11/2018 thought to be provoked post cath. DM a1c 6.2% 02/2019. Chronic interstitial nephritis. CKD 3 baseline Cr ~1.2. UTI/chronic pyuria (hx ESBL klebsiella). mood d/o. fibromyalgia. HTN. LE weakness/atrophy/deconditioning. KRISTI on CPAP - Surgical History Reports: coronary stent Additional surgical history: tonsillectomy. cholecystectomy. cystoscopy, urethral stricture repair. right foot surgery. hysterectomy - Family History Positive for: non-pertinent - Social History Smoking Status: Never smoked Alcohol Use: None Drug Use: None Additional social history: and lives with . recent prolonged stay at SNF for LE weakness/deconditioning. COR - FULL. Review of Systems Review of Systems: ROS: 10pt was reviewed & negative except for what was stated in HPI & below Constitutional: Reports: chills, weakness (generalized. chronic LE weakness.). Denies: fever Cardiac: Reports: no symptoms Respiratory: Reports: no symptoms Gastrointestinal: Reports: no symptoms Muscolosketal: Reports: other (generalized weakness improving) Skin: Reports: no symptoms Neurological: Reports: no symptoms Hematologic/Lymphatic: Reports: anemia Physical Exam Physical Exam: Selected Entries 03/02/19 03/02/19 19:45 22:53 Heart Rate 101 H 77 Respiratory 16 16 Rate O2 Sat (%) 94 97 Temperature (C) 36.7 C 36.9 C Blood Pressure 130/75 H 144/87 H Mean Arterial 93 106 H Pressure (MAP) Activity During At Rest At Rest Vital Signs O2 Delivery Room Air Room Air Mode Blood Pressure Left Left Source Upper Upper Arm Arm Temperature Oral Oral Source Heart Rate Heart Rate/ Heart Rate/ Source Monitor Monitor Constitutional: no apparent distress, not in pain, chronically ill appearing, other (NAD. Pleasant adult female is lying quietly in bed. CPAP in place she sleeping but wakes easily to name. Her is at bedside.) Eyes: PERRL (Left pupil slightly larger than the right. Patient reports is chronic.), anicteric sclera, EOMI, No scleral injection Ears, Nose, Mouth, Throat: moist mucous membranes, other (No nasal discharge.), No poor dentition Cardiovascular: regular rate and rhythym, no murmur, rub, or gallop, edema, No tachycardia Peripheral Pulses: 1+: dorsalis-pedis (R) (Limited secondary to edema), dorsalis -pedis (L) (Limited secondary to edema) Respiratory: no respiratory distress, no rales or rhonchi, clear to auscultation , No reduced air movement, No expiratory wheeze, No inspiratory crackles Gastrointestinal: normoactive bowel sounds, soft, non-tender abdomen, no palpable masses, No distension Genitourinary: no bladder tenderness, No khan in urethra Skin: warm, no rashes or abrasions, other (Pallor) Musculoskeletal: full muscle strength (While lying in bed patient distal upper and lower extremity strength 4/5. She is able to sit up independently.) Neurologic: AAOx3, sensation intact bilaterally, CN II-XII Intact, other (moves all extremities. grossly nonfocal exam. ), No facial droop Psychiatric: interacting appropriately, not anxious, not encephalopathic, thought process linear, other (patient pleasant and cooperative. disappointed she has developed PE/DVT again. ) Lab Data & Imaging Review Laboratory Tests 03/01/19 03/02/19 03/02/19 13:40 22:10 22:10 WBC 8.18 RBC 2.86 L Hgb 9.4 L Hct 30.7 L MCV 107.3 H MCH 32.9 MCHC 30.6 L RDW 15.9 H Plt Count 255 MPV 8.7 Neut % (Auto) 41.9 Lymph % (Auto) 43.6 Sanborn % (Auto) 11.2 Eos % (Auto) 0.6 Baso % (Auto) 0.5 Nucleat RBC Rel Count 1.0 H Absolute Neuts (auto) 3.42 Absolute Lymphs (auto) 3.57 H Absolute Monos (auto) 0.92 H Absolute Eos (auto) 0.05 Absolute Basos (auto) 0.04 Absolute Nucleated RBC 0.08 H Immature Gran % 2.2 H Immature Gran # 0.18 H PT 12.3 INR 0.95 APTT 23.1 Sodium 138 Potassium 4.8 Chloride 109 Carbon Dioxide 21 L Anion Gap 8 BUN 14 Creatinine 0.9 Estimated GFR > 60 Glucose 108 H Calcium 8.7 Total Bilirubin 0.2 AST 20 ALT 13 Alkaline Phosphatase 71 Total Protein 5.8 L Albumin 2.7 L Imaging Review: Bilateral Lower Extremity Deep Venous Duplex Doppler Ultrasound History: Bilateral lower extremity leg pain and swelling left side greater than right.. Recent documentation of pulmonary embolus. On blood thinners. Technique: The right and left lower extremity deep venous system and veins of the proximal calf were interrogated with grayscale, color, and spectral Doppler imaging. Findings: Comparison to 02/21/2019 Right lower extremity: The right common femoral, superficial femoral, popliteal , and veins of the calf normally compress on grayscale imaging. The deep venous system and veins of the proximal calf have normal flow and expected variability. The visualized greater saphenous vein compresses normally without thrombus. Left lower extremity: There is partially occlusive thrombus in the left popliteal vein for length of about 2 to 3 cm. The left common femoral, superficial femoral, and veins of the calf normally compress on grayscale imaging. The deep venous system and veins of the proximal calf have normal flow and expected variability. The visualized greater saphenous vein compresses normally without thrombus. Impression: 1. Partially occlusive thrombus left popliteal vein for length of 2 to 3 cm. This was not present on prior study from 9 days ago. 2. No evidence of DVT Right lower extremity Dictated By: Thom Vieira MD CT Pulmonary Angiogram 2003 hours Clinical Indications: Edema, hypoxia. Evaluate for pulmonary embolus. Technique: Thinly collimated multidetector helical CT imaging was performed through the chest while 75 mL Isovue-370 were injected intravenously without complication. The images were reconstructed in multiple planes. Dose reduction techniques were utilized. Findings: CT Angiogram: There is segmental thrombus is partially occlusive to the right lower lobe as well as subsegmental embolus to the right lower lobe and left lower lobe as well as lingula. The thoracic aorta has a normal contour without evidence of aneurysm or dissection. There is no pericardial effusion. The cardiac chambers are normal in appearance. There appears to be a coronary stent involving the proximal LAD. CT Chest: There is focal infiltrate right lower lobe posteriorly compatible with pulmonary infarct. The remainder of the lungs are clear. There are no effusions. There are no pulmonary nodules. Soft tissues are unremarkable. The visualized upper abdominal structures are unremarkable during arterial phase of imaging. Skeletal system: Vertebral body heights are well-maintained. There are no lytic or sclerotic osseous lesions. Impression: 1. Mild to moderate volume pulmonary embolus right lower lobe, left lower lobe, and lingula with focal pulmonary infarct right lower lobe posteriorly. Findings sent by secured text message to Yousuf Gore MD at 20:48 hour, 03/02/2019. Dictated By: Thom Vieira MD Assessment & Plan Assessment: pleasant 68 yo F with pmhx significant for CAD s/p stent 11/2018, subsequent PE ( 11/2018), HTN, atrial ach, DM II, CKD 3 2/2 interstitial nephritis, CVID receiving IVIg monthly, mood d/o, KRISTI, who presents as transfer/admit from acute Rehab for acute DVT/PE. #PE - bilateral subsegmental. patient without increase O2 need and HR normalized. hematology consulted by Dr. Gore and they recommended initiating heparing gtt without any bolus. resume effient as per hematology will require for hx recent cardiac stent. Patient denies any respiratory symptoms at this time. will monitor on tele and with continuous pulse ox tonight. During patient recent hospitalization for SAH. Neuro surgery consulted during stay and recommended proceeding with anticoagulation as appropriate. Patient had previous discussion for placement of IVC filter but was not done as it was felt patient had completed 3 mo course anticoagulation. Hematology will consult in AM. #DVT - patient with compression hose already in place. no pain. heparin gtt as noted above. chronic medical issues - 1 time AM dosing ordered will need home meds resumed when med rec completed. #LE edema - 2/2 DVT left popliteal as well as acute/chronic illnesses. previous EF >60%. cont compression hose. dietary consult with history of hypoalbuminemia. # DM II - a1c WNL. diet controlled. # CAD s/p stent - effient as above. #hx atrial tach - metoprolol #CKD 3/interstitial nephritis - am bmp. avoiding nephrotoxic meds. #benign essential HTN - BPs acceptable at this time. on metoprolol. #hx ESBL klebsiella - contact precautions #CVID - monthly IVIg. #chronic anemia - no active bleeding. monitor AM CBC. #KRISTI - home CPAP in place. #hypothyroidism - continue l- thyroxine #mood disorder - continue wellbutrin and depakote FEN - tolerating PO. SLIV. electrolyte monitoring in AM. ADA diet PPX - no SCDs with heparin gtt. in compression hose. COR - FULL. Dispo - Patient admitted to inpatient status pending hematology consultation and monitoring anticoagulation with recent history of ICH. anticipate > 2 midnight stay given recurrence of PE/DVT.
[2019-03-02] MEDS ORDERED: NITROGLYCERIN 0.4 MG BTL SL PRN (23:45)
[2019-03-03] MEDS: DIVALPROEX NA 500 MG TAB PO SCH ×3 (03:51→15:07)
[2019-03-03] MEDS ORDERED: buPROPion XL 150 MG TAB PO ONE (04:00)
[2019-03-03] MEDS ORDERED: LEVOTHYROXINE 75 MCG TAB PO ONE (04:00)
[2019-03-03 05:37] LABS: PLATELET COUNT 256 10^3/uL (150-400)
[2019-03-03] MEDS: METOPROLOL TARTRATE 25 MG TAB PO SCH ×3 (08:25→21:00)
[2019-03-03] MEDS ORDERED: predniSONE 1 MG TAB PO ONE (09:00)
--- NOTE | 2019-03-03 09:15 | ASMTLACE ---
MARIA A Acuity / Level of Answers: Yes Care: Did the patient have an inpatient admission? Comorbidities - select Answers: Coronary Artery Disease all that apply Diabetes (uncontrolled or controlled) Moderate or severe liver or renal disease Other Notes: HTN; PE # of Emergency department Answers: 5-8 visits in the last 6 months Social determinants Answers: Mental health diagnosis (anxiety, depression, pers onality disorders, etc.) Score: 18 Date Signed: 03/03/2019 09:15 AM Electronically Signed By:Hetal Alva
--- NOTE | 2019-03-03 13:20 | PDMN ---
Medical Necessity Medical necessity: Pt meets IP criteria per & MCG M-290; est los >2 mn for acute PE/DVT; admit for further monitoring, Hematology consult & Heparin gtt; hx multiple chronic medical issues including recent cardiac stent & recent SAH; per H&P & order 03/02/19
[2019-03-03] MEDS ORDERED: ALTEPLASE 2 MG VIAL IVP PRN (14:05)
[2019-03-03] MEDS ORDERED: ACETAMINOPHEN 325 MG TAB PO PRN (14:07)
--- NOTE | 2019-03-03 14:52 | GCON ---
[f rep st] CONSULTATION REASON FOR CONSULTATION: Recurrent pulmonary embolism. CONSULTATION REQUESTED BY: Dr. Claudy Gore. RECOMMENDATIONS: 1. I agree with unfractionated heparin as you are doing for her recurrent pulmonary emboli. 2. I would recommend lifelong anticoagulation at this point since she has had 2 episodes of life-thr eatening blood clots. 3. The choice of agent is somewhat difficult for her, but I do not think she is a good candidate for Eliquis, Pradaxa, or Xarelto. I think it is important that we be able to reverse her quickly and ea sily if needed, especially in view of her recent subarachnoid hemorrhage. I would recommend we try t o keep her INR between 2 and 2.5 with Coumadin and that we should start Coumadin after we are sure sh e is stable for the next couple of days on unfractionated heparin. ASSESSMENT: This 68-year-old woman who was here previously seen by my partner, Dr. Samra Shirley, wh o is now consulted after being admitted to rehab for further rehabilitation after subarachnoid hemorr brian. The patient approximately 3 months ago had pulmonary embolism. She was treated with Eliquis a nd then had a repeat scan which showed resolution of her clots. Therefore, because of her subarachno id hemorrhage, she was taken off Eliquis. This was unfortunately just a couple of weeks ago. While in rehab, she developed some increasing shortness of breath and had another CT angiogram performed wh ich revealed multiple clots in her lungs and she also had evidence of new DVT. She has not had a hyp ercoagulability workup done as of yet. And although I think this would be potentially helpful, it wi ll likely not affect her recommendations for anticoagulation at this point. I sat with the patient and her for approximately 40 minutes. We discussed in detail what we knew about her clot so far, the recommendations for lifelong anticoagulation. The risks, both of ant icoagulating her and not anticoagulating her and also we, in detail, went through the choices of paris jimenez for anticoagulation long-term. By the end of that conversation, answered her questions and her hu sincerenydia's questions to the best of my ability and to their apparent satisfaction. PAST MEDICAL HISTORY: Otherwise remarkable for coronary artery disease with recent stent placement. She has had interstitial nephritis and has been on steroids. She has history of fibromyalgia. She has a history of type 2 diabetes. She also has a history of common variability immunodeficiency requ iring ongoing IVIG infusions and history of recurring sinus and urinary tract infections. She has a history of hypothyroidism, depression, hypertension, and obstructive sleep apnea. PAST SURGICAL HISTORY: Remarkable for cholecystectomy, cystoscopy, hysterectomy, tonsillectomy, and appendectomy. FAMILY HISTORY: Unknown since the patient is adopted. SOCIAL HISTORY: She does not smoke or drink alcohol. REVIEW OF SYSTEMS: At this time is unremarkable for hemoptysis. She does complain of shortness of b reath and some generalized weakness. PHYSICAL EXAM: GENERAL: Shows an alert woman who has some pallor, but is in overall no acute distre ss. LUNGS: Reveal no rales, rubs, or rhonchi anteriorly or posteriorly. CARDIAC: Shows a regular rhythm at this point. Thank you very much for allowing us to participate in this pleasant woman's care. We look forward to assisting with her management during this hospitalization and beyond. /[id number]/MODL
[2019-03-03] MEDS ORDERED: METOPROLOL TARTRATE 25 MG TAB PO SCH (16:00)
--- NOTE | 2019-03-03 16:22 | ASMTCMCOM ---
CM Note CM Note Notes: CM discussed case with Dr. Umanzor, patient was admitted from [facility] inpatient rehab after a [facility] inpatient stay for subacute subarachnoid hemorrhage. Patient experienced increasing LE edema and mild tachycardia during Inpatient rehab stay, venous doppler of LE and CTA chest were significant for left popliteal DVT and bilateral subsegmental PEs. Patient to receive consult with Hematology and PICC ordered. CM to follow. D/C plan: TBD vs. possible return to Inpatient Rehab Date Signed: 03/03/2019 04:21 PM Electronically Signed By:Cintia Barr
--- NOTE | 2019-03-03 17:57 | HOSPPROG ---
Hospitalist Progress Note Assessment/Plan: Subjective Follow-up on new finding of DVT with pulmonary embolism. Case was reviewed Dr. Childs with cardiology as well as Dr. Lowery with Neurosurgery. Patient was started on heparin drip last evening. She has not been hypoxic throughout the day. No complaints of any headaches or focal neurologic deficits. Her case is challenging considering the recent finding of subarachnoid hemorrhage on February. Dr. Lowery recommended obtaining a CT scan of the head for reassessment of the subarachnoid hemorrhage. This will be helpful in decision making in regards to resuming anti-platelet agents as the patient did just have 3 stents placed in November of this year. She was also found to have a pulmonary embolism at the same time and started on anticoagulation. When she was admitted for the subarachnoid hemorrhage her anticoagulation was stopped. She was discharged with Effient alone when she went to the rehab year. Unfortunately she has now returned with recurrent DVT with pulmonary embolism. Objective Vital signs as detailed below Physical exam General-awake alert conversant no acute distress Heart-regular rate and rhythm no murmurs Lungs-Clear to auscultation with normal respiratory effort Abdomen-soft nontender nondistended normal bowel sounds -no Orellana catheter in place Extremities-no significant pitting edema or calf pain with palpation Skin-no concerning skin rashes noted Labs as detailed below Assessment and plan DVT with pulmonary embolism-acute. Recurrent. Appreciate Hematology is assistance on the case. Will continue with heparin drip for anticoagulation. Close monitoring neurologically for any changes. Anticipate oral anticoagulation with Coumadin in the coming days presuming stability. Subarachnoid hemorrhage-recent. This developed while on aspirin and Plavix and Eliquis. Case reviewed with Dr. Lowery with neuro surgery this evening. Repeat head imaging recommended and if any findings and formally consult neuro surgery. Anemia-continue to trend. Hemoglobin 8.8. Coronary artery disease-patient with recent percutaneous intervention with 3 stents being placed in November this year. Patient is currently not on any anti -platelet agents. Cardiology consult as requested on the cardiac catheterization report from November of this year. Hypertension-controlled. The patient is currently on metoprolol. Obstructive sleep apnea-confirm if patient compliant with CPAP therapy. Chronic kidney disease stage 3-patient with history of interstitial nephritis. Diabetes mellitus type 2-recent hemoglobin A1c within normal limits. 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 Hypothyroidism-patient is on levothyroxine 75 mcg daily. Mood disorder-no changes made to her medication regimen. Disposition-inpatient status. Full code. Patient at inpatient rehab prior to readmission. Objective: Vital Signs Temp Pulse Resp BP Pulse Ox 36.8 C 97 18 117/74 92 03/03/19 15:11 03/03/19 15:11 03/03/19 15:11 03/03/19 15:11 03/03/19 15:11 Laboratory Results 03/03/19 05:30 03/03/19 05:30 03/02/19 03/03/19 03/04/19 05:59 05:59 05:59 Intake Total 200 1330 Output Total 400 700 Balance -200 630 ICD10 Worksheet Patient Problems: Problems Problem Status Onset Acute electrocardiogram changes Acute Acute hyperkalemia Acute Acute renal failure Acute Dyspnea Acute Generalized weakness Acute History of ESBL Klebsiella pneumoniae infection Acute Myopathic disease or syndrome Acute PSVT (paroxysmal supraventricular tachycardia) Acute Subarachnoid hemorrhage Acute
[2019-03-03] MEDS: HEPARIN/DEXTROSE 500 ML IV SCH (18:13)
[2019-03-04] MEDS: buPROPion XL 150 MG TAB PO SCH (04:29)
[2019-03-04] MEDS: DIVALPROEX NA 500 MG TAB PO SCH ×4 (04:30→16:58)
[2019-03-04 06:43] LABS: PLATELET COUNT 271 10^3/uL (150-400)
[2019-03-04] MEDS: METOPROLOL TARTRATE 25 MG TAB PO SCH ×3 (07:26→20:51)
[2019-03-04] MEDS ORDERED: PRASUGREL HCL 10 MG TAB PO SCH (09:00)
[2019-03-04] MEDS ORDERED: CLOPIDOGREL BISULFATE 75 MG TAB PO ONE (10:00)
--- NOTE | 2019-03-04 10:21 | SOAPPROG ---
SOAP Progress Note Assessment/Plan: Assessment: 1) Recurrent DVT/PE 2) Recent SAH 3) Nonspecific suprasellar mass seen on CT and MRI Plan: Doing well on IV unfractionated heparin. CT brain this AM does not show any evidence of recurrent TIE BUCKER bleed. She will need to be transitioned to an anticoagulant that can be given at discharge. I would favor Lovenox over warfarin in this setting. If she continues to do well, I think she can be transitioned to Lovenox (1 mg/ kg BID) tomorrow. Continue Heparin today. Neurosurgery to comment on the non specific suprasellar mass seen on her CT. Plan d/w Dr. Hoskins and patient. 03/04/19 10:16 Subjective: Feels well. Denies CP, dyspnea, PARK, Bleeding CT head done this am does not demonstrate any bleeding Objective: Vital Signs Temp Pulse Resp BP Pulse Ox 36.8 C 97 18 110/71 98 03/04/19 07:59 03/04/19 07:59 03/04/19 07:59 03/04/19 07:59 03/04/19 07:59 Laboratory Results 03/04/19 06:31 03/04/19 06:31 03/03/19 03/04/19 03/05/19 05:59 05:59 05:59 Intake Total 200 1780 Output Total 400 1350 Balance -200 430 - Time Spent With Patient Time Spent With Patient: 25 minutes Physical Exam - Physical Exam General Appearance: alert, no apparent distress EENT: PERRL/EOMI Skin: normal color, warm/dry Neuro/Psych: alert, normal mood/affect, oriented x 3 ICD10 Worksheet Patient Problems: Problems Problem Status Onset Acute electrocardiogram changes Acute Acute hyperkalemia Acute Acute renal failure Acute Dyspnea Acute Generalized weakness Acute History of ESBL Klebsiella pneumoniae infection Acute Myopathic disease or syndrome Acute PSVT (paroxysmal supraventricular tachycardia) Acute Subarachnoid hemorrhage Acute
--- NOTE | 2019-03-04 10:45 | GCON ---
[f rep st] CONSULTATION DATE OF CONSULTATION: 03/04/2019 CHIEF COMPLAINT: DVT and recurrent PE, CAD, atrial tachycardia HISTORY OF PRESENT ILLNESS: The patient is a pleasant 68-year-old female with a complicated recent medical history. The patient was initially admitted October 11, 2018 for acute renal failure in the setting of a severe UTI. Workup for dyspnea and fatigue at that time was unremarkable. She was readmitted on November 25, 2018 for further evaluation of persistent dyspnea, at which time she had a complex LAD PCI with Dr. Mickey Gomez. She had persistent dyspnea following her stent placement and subsequent chest CTA demonstrated right upper lobe and right lower lobe PEs. She was started on Eliquis and Effient at that time. She returned to the hospital 11/23/2018, for further evaluation of persistent severe dyspnea. Her anemia was noted to be progressive at that time and was suspected to be blood-loss anemia. Her CellCept, which she was taking for interstitial nephritis, was discontinued. Bone marrow biopsy was completed, which was unremarkable. Her neurology evaluation was unremarkable at that time. Urinalysis demonstrated Morganella UTI, which was treated with ceftriaxone and she was discharged to a [facility] facility. She proceeded with therapies at her [facility] facility for several weeks and she was ultimately discharged home in stable condition with improved dyspnea and activity tolerance overall. However, she presented back to the ED 02/07/2019, in the setting of recurrent progressive dyspnea after this brief period of improvement. CTA at that time was negative for PE. Her BNP was 700, which was decreased from around 2000. Her echo at that time was stable with an old-appearing pericardial effusion. She had an unremarkable MPI Lexiscan. Low-dose Lasix was started and this resulted in improvement of her dyspnea at that time. Her metoprolol was also uptitrated to 100 mg twice daily for management of her atrial tachycardia. The patient subsequently experienced fatigue with this increased dose of metoprolol and was decreased to 75mg BID at an outpatient clinic visit. She was readmitted 02/20/2019, after a brain MRI demonstrated a subacute subarachnoid hemorrhage in the setting of chronic anticoagulation. Her Eliquis was discontinued at that time and she continued Effient in the setting of recent LAD PCI. Abdomen CT was negative at that time for retroperitoneal hematoma. Lumbar spine MRI was also performed for further evaluation of chronic lower extremity weakness and was negative for any nerve compression or disk herniation. Her subarachnoid hemorrhage was not suspected to be the cause of her recent weakness and significant deconditioning. She was ultimately discharged home in stable condition, however, she noted sudden onset of swelling to her left lower extremity late last week and she presented 03/02 for further evaluation. Ultrasound at that time demonstrated a left lower extremity DVT and subsequent imaging demonstrated an acute recurrent pulmonary embolism. Head CT today demonstrates resolution of her subarachnoid hemorrhage and was notable for a nonspecific suprasellar 15 x 6 mm mass. The patient reports feeling stable overall, however, she does continue to describe persistent dyspnea, weakness, and fatigue. She denies any chest pain, orthopnea, syncope, or presyncope. Her heart rates are well controlled today, although she did have sinus tachycardia upon presentation 03/02, which has resolved. She continues Metoprolol 25mg BID. PAST MEDICAL HISTORY: 1. Pulmonary embolism. 2. Coronary artery disease status post complex LAD PCI 11/2018. 3. Ectopic atrial rhythm/atrial tachycardia. 4. Diabetes mellitus. 5. Hypogammaglobulinemia. 6. Chronic renal insufficiency. 7. Chronic microcytic anemia. 8. Hypothyroidism. 9. Fibromyalgia. 10. Hypertension. 11. Hyperlipidemia. 12. Obstructive sleep apnea. 13. 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 14. Recurrent urinary tract and sinus infections. 15. Depression. PAST SURGICAL HISTORY: Remarkable for cholecystectomy, cystoscopy, hysterectomy , tonsillectomy, and appendectomy. FAMILY HISTORY: Noncontributory. SOCIAL HISTORY: No tobacco use, no ETOH intake. REVIEW OF SYSTEMS: Unremarkable aside from as described above. PHYSICAL EXAM: GENERAL: Alert and oriented x4. No apparent distress. VITAL SIGNS: Blood pressure 110/71. Heart rate 97. SpO2 98% on room air. Respiratory rate 18. Temp 36.8 degrees Celsius. LUNGS: No labored breathing noted. CARDIAC: Left lower extremity edema. SKIN: Significant scattered ecchymosis and minor abrasions. EXTREMITIES: No clubbing, cyanosis, or impaired range of motion. LABORATORY STUDIES: Drawn this morning demonstrates hemoglobin 9, hematocrit 30.2. Normal BMP aside from creatinine of 1.1, this is slightly elevated from her presenting creatinine of 0.9. PROCEDURES PERFORMED DURING HOSPITALIZATION: As above, please see detailed HPI. ASSESSMENT AND PLAN: The patient is a 68-year-old female with a complex recent clinical course, see detailed HPI. 1. Deep venous thrombosis and recurrent pulmonary embolus: We will discontinue her Effient at this time, and she will start Plavix in the setting of LAD PCI over 3 months ago. She continues her Heparin drip and she will start Lovenox 1 month. Ultimately, hematology as recommended lifelong oral anticoagulation with Coumadin, goal INR of 2-2.5. 2. Persistent dyspnea on exertion: Unclear etiology, as her symptoms have occurred both in the absence and in the setting of recurrent pulmonary embolus. She has been hypoxic on exertion, which pulmonology suspects may be related to sequelae from her initial PE. Her atrial tachycardia (especially during periods with uncontrolled ventricular rates) may also represent a contributing factor. Will continue to monitor. 3. Nonspecific left suprasellar mass. 4. History of recent subarachnoid hemorrhage - resolved by head CT this AM 5. Atrial tachycardia/ectopic atrial rhythm: Rates are well controlled at this time, she will continue low-dose metoprolol. In the setting of her recent significant comorbid conditions, query whether additional workup may be indicated to rule out paraneoplastic syndromes. Also recommend consideration for further evaluation of a 15 x 16 mm nonspecific suprasellar mass noted on brain CT this morning. No additional recommendations per Cardiology at this time, we will continue to follow during this hospitalization. ADDENDUM Dillan Childs MD-patient seen and discussed with Ms. Choudhury. Relevant portions of history/physical/ros/data review personally performed by me. Complex situation in this very pleasant 68-year-old woman, who is at risk of both bleeding and thrombotic complications. Query prothrombotic state, would defer to our Hematology colleagues for further workup of underlying cause. We do note an intracranial mass, which might contribute in the form of paraneoplastic syndrome. I discussed this case in detail with Dr. Gomez, who was the typewriter ribbon winder performing the PCI 3 months ago. We will plan to take her off Effient, start Plavix, no aspirin. Would plan on long- term anticoagulation, however the choice of agent will be left up to the Hematology team. /[id number]/MODL MTDD
--- NOTE | 2019-03-04 11:19 | HOSPPROG ---
Hospitalist Progress Note Assessment/Plan: 68-year-old with a history of CAD with recent stent and previous DVT and PE on anti-platelet and anticoagulants was admitted recently for a subarachnoid hemorrhage. She was discharged to rehab and readmitted with recurrent DVT and PE. Given her recent subarachnoid hemorrhage she was placed on IV heparin overnight because of her high risk of recurrent bleeding and hematology has been consulted. She has done well since admission and had a CT scan this morning which showed no recurrent bleeding however there was a suprasellar mass noted that had been present previously, it is unclear of what significance this is and whether neuro surgery needs to look into this in the near future. # DVT with acute pulmonary embolism, recurrent in the setting of recent subarachnoid hemorrhage. * Continue IV heparin overnight and transition to subcu Lovenox tomorrow morning * Eventually would need to be transitioned to an oral anticoagulant but would continue Lovenox for at least a month and have her follow-up with Hematology * Overall she has been relatively stable here in the hospital * Would consider monitoring on subcu heparin prior to discharge given the high risk situation # recent subarachnoid hemorrhage, developing while on aspirin Plavix and Eliquis. CT this morning did not show recurrent bleeding however it did show a suprasellar mass that has not yet been addressed * Review with Neurosurgery to see if this is of any significance and needs any further evaluation while here or as an outpatient # Suprasellar mass: unclear etiology. discussed with Dr. Woods who feels this is benign and can be followed up as an outpatient. * after DC follow up with Dr. Sanchez or Dr. Woods. # anemia, continue to trend # coronary artery disease with recent percutaneous intervention and 3 stents placed in November of this year. Patient is currently not on any anti-platelet agents, would need to resume this as soon as it is okay per Neurosurgery # type 2 diabetes has had a recent A1c within normal limits # chronic kidney disease, stage III. Patient with a history of interstitial nephritis # obstructive sleep apnea, patient compliant with CPAP therapy # CVID, patient on monthly IVIG # hypothyroidism on replacement with levothyroxine 75 mcg daily # mood disorder continue current medications disposition-inpatient status. Full code. Patient at inpatient rehab prior to Subjective: Patient new to me and chart reviewed. Discussed with Oncology. Overall feeling well without no chest pain or shortness of breath. Objective: Vital Signs Temp Pulse Resp BP Pulse Ox 36.6 C 93 20 122/64 H 98 03/04/19 10:53 03/04/19 10:53 03/04/19 10:53 03/04/19 10:53 03/04/19 10:53 Laboratory Results 03/04/19 06:31 03/04/19 06:31 03/03/19 03/04/19 03/05/19 05:59 05:59 05:59 Intake Total 200 1780 Output Total 400 1350 Balance -200 430 - Physical Exam Constitutional: no apparent distress, obese Eyes: PERRL Ears, Nose, Mouth, Throat: moist mucous membranes Cardiovascular: regular rate and rhythym Respiratory: no respiratory distress, clear to auscultation Gastrointestinal: soft, non-tender abdomen Genitourinary: no bladder fullness Skin: normal color Neurologic: AAOx3 Psychiatric: interacting appropriately ICD10 Worksheet Patient Problems: Problems Problem Status Onset History of ESBL Klebsiella pneumoniae infection Acute Dyspnea Acute Generalized weakness Acute Acute electrocardiogram changes Acute Subarachnoid hemorrhage Acute Myopathic disease or syndrome Acute Acute renal failure Acute Acute hyperkalemia Acute PSVT (paroxysmal supraventricular tachycardia) Acute
[2019-03-04] MEDS: CLOPIDOGREL BISULFATE 75 MG TAB PO SCH (12:20)
[2019-03-04] MEDS: HEPARIN/DEXTROSE 500 ML IV SCH (20:52)
[2019-03-05] MEDS: DIVALPROEX NA 500 MG TAB PO SCH ×4 (05:22→16:42)
[2019-03-05] MEDS: buPROPion XL 150 MG TAB PO SCH (05:22)
[2019-03-05 06:17] LABS: PLATELET COUNT 298 10^3/uL (150-400)
[2019-03-05] MEDS: METOPROLOL TARTRATE 25 MG TAB PO SCH ×3 (08:31→21:45)
[2019-03-05] MEDS: CLOPIDOGREL BISULFATE 75 MG TAB PO SCH (08:31)
[2019-03-05] MEDS ORDERED: CLOPIDOGREL BISULFATE 75 MG TAB PO SCH (09:00)
--- NOTE | 2019-03-05 10:07 | PDCARPN ---
Cardiology Progress Note Chief Complaint: DVT, recurrent PE Assessment/Plan: Assessment: 1. DVT and recurrent acute PE: continue anticoagulation as per hematology. Likely transition from heparin gtt to SubQ Lovenox today. Will ultimately transition to lifelong oral anticoagulation 2. CAD s/p recent LAD PCI 11/2018: She has been switched from Effient to Plavix to reduce bleeding risk 3. Atrial tachycardia: tele demonstrates NSR this AM, no sinus tachycardia since initial presentation on admission, she continues low-dose metoprolol 4. Recent subacute subarachnoid hemorrhage: resolved per head CT yesterday 5. Nonspecific suprasellar mass: Neurosurgery to comment 6. DM 7. CVID 8. CKD 9. Hypothyroidism 10. KRISTI Plan: 1. Continue anticoagulation as per hematology 2. Continue Plavix 75mg daily 3. Cardiology will sign off for now, however, we are happy to provide additional recommendations at any point as needed. Thank you for the opportunity to consult on this complicated case 03/05/19 10:08 Subjective: No cardiovascular concerns, mild nausea after breakfast this AM Reviewed/Discussed With: multidisciplinary team Time Spent with Patient: greater than 25 minutes Time Spent with Patient: Greater than 25 minutes spent on this patients care, greater than 50% of time spent counseling, educating, and coordinating care regarding the above mentioned plan. Objective: Vital Signs (8 Hrs) Temp Pulse Resp BP Pulse Ox 03/05/19 08:21 36.7 C 94 23 H 101/66 95 03/05/19 04:00 36.4 C 89 16 111/66 92 Intake/Output (24 Hrs) 03/04/19 03/05/19 03/06/19 05:59 05:59 05:59 Intake Total 1780 1429 Output Total 1350 1390 Balance 430 39 Intake: Oral (ml) 1780 1429 Output: Urine (ml) 1350 1390 Bedside Commode 700 Catheter 650 850 Incontinence 540 Other: Weight 71.6 kg Intake Quantity Yes Sufficient Number of Voids Bedside Commode 2 Result Diagrams: 03/05/19 05:50 03/05/19 05:50 EKG: NSR - Physical Exam Constitutional: no apparent distress Ears, Nose, Mouth, Throat: moist mucous membranes, no oral ulcers, no thrush Neurologic: AAOx3, CN II-XII grossly intact Psychiatric: cooperative, interactive, following commands ICD10 Worksheet Patient Problems: Problems Problem Status Onset Acute electrocardiogram changes Acute Acute hyperkalemia Acute Acute renal failure Acute Dyspnea Acute Generalized weakness Acute History of ESBL Klebsiella pneumoniae infection Acute Myopathic disease or syndrome Acute PSVT (paroxysmal supraventricular tachycardia) Acute Subarachnoid hemorrhage Acute
--- NOTE | 2019-03-05 10:40 | SOAPPROG ---
[facility] Progress Note Assessment/Plan: Assessment: 1) Recurrent DVT/PE 2) Recent SAH 3) Nonspecific suprasellar mass seen on CT and MRI (evaluated by Neurosurgery) Plan: Doing well on IV unfractionated heparin. 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 She will need to be transitioned to an anticoagulant that can be given at discharge. I would favor Lovenox over warfarin in this setting. I think she can be transitioned to Lovenox (1 mg/kg BID) today. Neurosurgery feels the non specific suprasellar mass seen on her CT is most likely benign. Outpatient follow up planned. Will plan on outpatient follow up after d/c for ongoing anticoagulation management. Plan d/w patient. Subjective: Reports some nausea this morinig. Denies PARK. Denies bleeding. Denies CP or dyspnea at rest. Objective: Vital Signs Temp Pulse Resp BP Pulse Ox 36.7 C 94 23 H 101/66 95 03/05/19 08:21 03/05/19 08:21 03/05/19 08:21 03/05/19 08:21 03/05/19 08:21 Laboratory Results 03/05/19 05:50 03/05/19 05:50 03/04/19 03/05/19 03/06/19 05:59 05:59 05:59 Intake Total 1780 1429 Output Total 1350 1390 Balance 430 39 - Time Spent With Patient Time Spent With Patient: 20 minutes Physical Exam - Physical Exam General Appearance: alert, no apparent distress Abdomen: non-tender, soft Skin: normal color Neuro/Psych: alert, normal mood/affect ICD10 Worksheet Patient Problems: Problems Problem Status Onset Acute electrocardiogram changes Acute Acute hyperkalemia Acute Acute renal failure Acute Dyspnea Acute Generalized weakness Acute History of ESBL Klebsiella pneumoniae infection Acute Myopathic disease or syndrome Acute PSVT (paroxysmal supraventricular tachycardia) Acute Subarachnoid hemorrhage Acute
[2019-03-05] MEDS: ENOXAPARIN 80 MG/0.8 ML SYR SC SCH ×2 (11:49→21:44)
[2019-03-05] MEDS: LEVOTHYROXINE 75 MCG TAB PO SCH (13:21)
--- NOTE | 2019-03-05 14:04 | HOSPPROG ---
Hospitalist Progress Note Assessment/Plan: 68-year-old with a history of CAD with recent stent and previous DVT and PE on anti-platelet and anticoagulants was admitted recently for a subarachnoid hemorrhage. She was discharged to rehab and readmitted with recurrent DVT and PE. Given her recent subarachnoid hemorrhage she was placed on IV heparin overnight because of her high risk of recurrent bleeding and hematology has been consulted. She has done well since admission and had a CT scan this morning which showed no recurrent bleeding however there was a suprasellar mass noted that had been present previously, it is unclear of what significance this is and whether neuro surgery needs to look into this in the near future. # DVT with acute pulmonary embolism, recurrent in the setting of recent subarachnoid hemorrhage. * Transition to lovenox today * Eventually would need to be transitioned to an oral anticoagulant but would continue Lovenox for at least a month and have her follow-up with Hematology * Overall she has been relatively stable here in the hospital * If continues to do well tomorrow will transfer to rehab. # recent subarachnoid hemorrhage, developing while on aspirin Plavix and Eliquis. CT this morning did not show recurrent bleeding however it did show a suprasellar mass that has not yet been addressed * Review with Neurosurgery to see if this is of any significance and needs any further evaluation while here or as an outpatient. # Suprasellar mass: unclear etiology. discussed with Dr. Woods who feels this is benign and can be followed up as an outpatient. * after DC follow up with Dr. Sanchez or Dr. Woods. # anemia, continue to trend. # coronary artery disease with recent percutaneous intervention and 3 stents placed in November of this year. Patient is currently not on any anti-platelet agents, would need to resume this as soon as it is okay per Neurosurgery. # type 2 diabetes has had a recent A1c within normal limits # chronic kidney disease, stage III. Patient with a history of interstitial nephritis # obstructive sleep apnea, patient compliant with CPAP therapy # CVID, patient on monthly IVIG # hypothyroidism on replacement with levothyroxine 75 mcg daily # mood disorder continue current medications disposition-inpatient status. Full code. Patient at inpatient rehab prior to Subjective: Doing well today, no complaints. Objective: Vital Signs Temp Pulse Resp BP Pulse Ox 36.4 C 86 13 109/63 96 03/05/19 11:36 03/05/19 11:36 03/05/19 11:36 03/05/19 11:36 03/05/19 11:36 Laboratory Results 03/05/19 05:50 03/05/19 05:50 03/04/19 03/05/19 03/06/19 05:59 05:59 05:59 Intake Total 1780 1429 Output Total 1350 1390 Balance 430 39 - Physical Exam Constitutional: chronically ill appearing Eyes: PERRL Ears, Nose, Mouth, Throat: moist mucous membranes Cardiovascular: regular rate and rhythym, edema Respiratory: no respiratory distress, clear to auscultation Gastrointestinal: normoactive bowel sounds Skin: other (eccymoses noted) Musculoskeletal: abnormal gait, generalized weakness Neurologic: AAOx3 Psychiatric: interacting appropriately ICD10 Worksheet Patient Problems: Problems Problem Status Onset History of ESBL Klebsiella pneumoniae infection Acute Dyspnea Acute Generalized weakness Acute Acute electrocardiogram changes Acute Subarachnoid hemorrhage Acute Myopathic disease or syndrome Acute Acute renal failure Acute Acute hyperkalemia Acute PSVT (paroxysmal supraventricular tachycardia) Acute
--- NOTE | 2019-03-05 16:02 | ASMTCMCOM ---
CM Note CM Note Notes: CM spoke with pt and confirmed that she is still planning to return to inpatient rehab if there is a bed available. Hospitalist confirmed that pt should be ready for dc on Wednesday. CM left a message for [facility] admissions inquiring if there is a bed available on Wednesday. CM to follow. D/C Plan: [facility] Inpt Rehab Date Signed: 03/05/2019 04:01 PM Electronically Signed By:Barbra Narvaez RN
[2019-03-06] MEDS: buPROPion XL 150 MG TAB PO SCH (04:58)
[2019-03-06] MEDS: DIVALPROEX NA 500 MG TAB PO SCH ×4 (04:58→16:08)
[2019-03-06] MEDS: LEVOTHYROXINE 75 MCG TAB PO SCH (04:59)
[2019-03-06 06:24] LABS: PLATELET COUNT 347 10^3/uL (150-400)
[2019-03-06] MEDS: ENOXAPARIN 80 MG/0.8 ML SYR SC SCH ×2 (07:42→21:09)
[2019-03-06] MEDS: CLOPIDOGREL BISULFATE 75 MG TAB PO SCH (07:42)
[2019-03-06] MEDS: METOPROLOL TARTRATE 25 MG TAB PO SCH ×3 (07:42→21:08)
--- NOTE | 2019-03-06 12:11 | HOSPPROG ---
Hospitalist Progress Note Assessment/Plan: 68-year-old with a history of CAD with recent stent and previous DVT and PE on anti-platelet and anticoagulants was admitted recently for a subarachnoid hemorrhage. She was discharged to rehab and readmitted with recurrent DVT and PE. Given her recent subarachnoid hemorrhage she was placed on IV heparin overnight because of her high risk of recurrent bleeding and hematology has been consulted. She has done well since admission and had a CT scan that showed no bleeding # DVT with acute pulmonary embolism, recurrent in the setting of recent subarachnoid hemorrhage. * Transition to lovenox * Eventually would need to be transitioned to an oral anticoagulant but would continue Lovenox for at least a month and have her follow-up with Hematology, she sees Dr. Shirley * Overall she has been relatively stable here in the hospital * Stable transfer to rehab when bed available # recent subarachnoid hemorrhage, developing while on aspirin Plavix and Eliquis. CT this morning did not show recurrent bleeding however it did show a suprasellar mass that has not yet been addressed * Review with Neurosurgery to see if this is of any significance and needs any further evaluation while here or as an outpatient. # Suprasellar mass: unclear etiology. discussed with Dr. Woods who feels this is benign and can be followed up as an outpatient. * after DC follow up with Dr. Sanchez or Dr. Woods. # anemia, continue to trend. # coronary artery disease with recent percutaneous intervention and 3 stents placed in November of this year. Patient is currently not on any anti-platelet agents, would need to resume this as soon as it is okay per Neurosurgery. * Patient has not had any chest pain will discontinue telemetry # type 2 diabetes has had a recent A1c within normal limits # chronic kidney disease, stage III. Patient with a history of interstitial nephritis # obstructive sleep apnea, patient compliant with CPAP therapy # CVID, patient on monthly IVIG # hypothyroidism on replacement with levothyroxine 75 mcg daily # mood disorder continue current medications disposition-inpatient status. Full code. Patient at inpatient rehab prior to Subjective: No headache or doing well today no headache no weakness that is new Objective: Vital Signs Temp Pulse Resp BP Pulse Ox 36.8 C 91 16 102/59 L 97 03/06/19 10:27 03/06/19 10:27 03/06/19 10:27 03/06/19 10:27 03/06/19 10:27 Laboratory Results 06/03/19 05:20 03/06/19 05:20 03/05/19 03/06/19 03/07/19 05:59 05:59 05:59 Intake Total 1429 300 Output Total 1390 700 Balance 39 -400 - Physical Exam Constitutional: no apparent distress, chronically ill appearing Eyes: PERRL Ears, Nose, Mouth, Throat: moist mucous membranes Cardiovascular: regular rate and rhythym Respiratory: no respiratory distress, clear to auscultation Gastrointestinal: soft, non-tender abdomen Genitourinary: no bladder fullness Skin: normal color Musculoskeletal: abnormal gait, generalized weakness Neurologic: AAOx3 Psychiatric: interacting appropriately ICD10 Worksheet Patient Problems: Problems Problem Status Onset History of ESBL Klebsiella pneumoniae infection Acute Dyspnea Acute Generalized weakness Acute Acute electrocardiogram changes Acute Subarachnoid hemorrhage Acute Myopathic disease or syndrome Acute Acute renal failure Acute Acute hyperkalemia Acute PSVT (paroxysmal supraventricular tachycardia) Acute
--- NOTE | 2019-03-06 12:16 | ASMTCMCOM ---
CM Note CM Note Notes: CM spoke with [facility] In[facility] Rehab and pt now needs therapy evals today since she has been inpatient >3 midnights. PT and OT ordered today. [facility] has a bed available tomorrow if pt qualifies with evals. CM to follow. D/C Plan: [facility] Inpt Rehab Date Signed: 03/06/2019 12:15 PM Electronically Signed By:Barbra Yoon. KAYCEE
--- NOTE | 2019-03-06 18:10 | SOAPPROG ---
[facility]EX[facility] Progress Note Assessment/Plan: Assessment: Patient is a 68-year-old female who experienced a pulmonary embolism was placed on Eliquis who subsequently developed a subarachnoid hemorrhage, was taken off of Eliquis, and then experienced a left LE deep vein thrombosis who is currently admitted for same. Agree with ongoing anticoagulation. Would continue on with Lovenox at 1 mg/kg twice daily. We will check an anti-10 a level 4 hours after the fourth or fifth dose of Lovenox to ensure she is therapeutic given subarachnoid hemorrhage. I would continue on with Lovenox indefinitely as this can be monitored by anti-10 a levels partially reversed with protamine. The decision about a novel oral anticoagulant or Coumadin can be made as an outpatient. In the meantime we will check for the presence of antiphospholipid antibody syndrome as if this is present, it could change future management of her thrombosis 03/06/19 18:20 Subjective: patient reports feeling well, less discomfort in her left leg. No CP or SOB. No headaches or changes in vision Objective: Vital Signs Temp Pulse Resp BP Pulse Ox 36.7 C 91 18 102/59 L 98 03/06/19 16:00 03/06/19 16:08 03/06/19 16:00 03/06/19 16:08 03/06/19 16:00 Laboratory Results 03/06/19 05:20 03/06/19 05:20 03/05/19 03/06/19 03/07/19 05:59 05:59 05:59 Intake Total 1429 300 300 Output Total 1390 700 Balance 39 -400 300 Physical Examination General: no acute distress, non toxic HEENT: PERRL, myiadriasis, no icterus or pallor Chest; RRR without rubs thrills or gallops Extremities: warm and well perfused, asymmetric swelling of left > right leg Neuro: non focal ICD10 Worksheet Patient Problems: Problems Problem Status Onset Acute electrocardiogram changes Acute Acute hyperkalemia Acute Acute renal failure Acute Dyspnea Acute Generalized weakness Acute History of ESBL Klebsiella pneumoniae infection Acute Myopathic disease or syndrome Acute PSVT (paroxysmal supraventricular tachycardia) Acute Subarachnoid hemorrhage Acute
[2019-03-07] MEDS: LEVOTHYROXINE 75 MCG TAB PO SCH (04:43)
[2019-03-07] MEDS: DIVALPROEX NA 500 MG TAB PO SCH ×3 (04:43→14:12)
[2019-03-07] MEDS: buPROPion XL 150 MG TAB PO SCH (04:43)
[2019-03-07 07:40] VITALS: BP 107/70
[2019-03-07] MEDS: METOPROLOL TARTRATE 25 MG TAB PO SCH (08:30)
[2019-03-07] MEDS: ENOXAPARIN 80 MG/0.8 ML SYR SC SCH (08:30)
[2019-03-07] MEDS: CLOPIDOGREL BISULFATE 75 MG TAB PO SCH (08:30)
--- NOTE | 2019-03-07 11:21 | PDIAF ---
- Diagnosis Diagnosis: PE/DVT, recent stent, Code Status: Full Code - Medication Management Discharge Medications: electronically signed and located in the Home Medication List. - Orders Services needed: Registered Nurse, Certified Sealer Sander, Master Cane Feeder , Physical Therapy, Occupational Therapy Isolation Type: Contact Isolation Diet Recommendation: no restrictions on diet Diet Texture: Regular Texture Diet - Follow Up Care Current Providers and Referrals: Patient,NotPresent [Primary Care Provider] -
--- NOTE | 2019-03-07 11:54 | GDS ---
[f rep st] DISCHARGE SUMMARY DIAGNOSES: 1. Deep vein thrombosis with acute pulmonary embolism, recurrent in the setting of recent subarachno id hemorrhage, currently on subcutaneous Lovenox. We will follow up with Dr. Samra Shirley in [facility]. 2. Recent subarachnoid hemorrhage developing while on aspirin, Plavix, and Eliquis . CT t his admission did not show any recurrent bleeding. 3. Suprasellar mass, incidental finding during imaging for subarachnoid hemorrhage. Discussed with Dr. Roc Lowery who reviewed the images and felt that this was benign and can be followed up as an o utpatient. After discharge, she needs follow up with Dr. Maloney or Dr. Lowery. 4. Anemia. 5. Coronary artery disease with recent percutaneous intervention and 3 stents placed in November. he does need ongoing anti-platelet agents, most currently on Plavix. 6. Type 2 diabetes. 7. Chronic kidney disease. 8. Obstructive sleep apnea, on Continuous Positive Airway Pressure. 9. Common variable immunodeficiency, patient on monthly IVIG. 10. Hypothyroidism, on replacement. 11. Mood disorder, continue current medications. CONSULTATIONS: Hematology, Dr. Erik Barajas and Dr. Erik Ratliff, interventional Radiology, [facility] [place]. PROCEDURES DONE: PICC line insertion. Head CT without contrast. CT angiogram of the chest prior to admission showing mild to moderate volume pulmonary emboli. HOSPITAL COURSE: The patient is a very nice 68-year-old woman who initially presented in November acute coronary syndrome and had 3 stents placed. She was placed on Plavix. She also had a small DVT which resolved. She returned with a subarachnoid hemorrhage develop, and this was self-limited, and she was eventually discharged to rehab. During rehab, she developed calf pain and was noted to h ave a DVT and pulmonary embolus. She was admitted here and initially started on IV heparin. She had a followup CT scan after being anticoagulated, which showed no acute bleeding, but an incidental sup rasellar mass. She was eventually transitioned over to subcu Lovenox and has done well without any f urther evidence of bleeding. Because of the incidental finding, Neurosurgery was called. They revie wed her films and recommended outpatient followup for that. She has had no cardiac symptoms, and the rest of her issues have been stable. CONDITION ON DISCHARGE: Good. DISCHARGE MEDICATIONS: Please see discharge medication form. FOLLOWUP: She will be discharged to inpatient rehab. She will need ongoing followup with Dr. Samra henning as an outpatient for hematology. She will need followup with Neurosurgery for incidental fin ding of the suprasellar mass, and she will need ongoing followup with Cardiology. Total time spent with patient on day of discharge and coordination of care is 35 minutes. /[id number]/MODL
--- NOTE | 2019-03-07 15:14 | ASDISCHSUM ---
Discharge Information Plan Status:Inpatient Rehab Medically Cleared to Leave:03/07/2019 Discharge Date:03/07/2019 03:08 PM D/C Disposition:[facility] IP ADT D/C Disposition:[facility] IP Projected Discharge Date:03/06/2019 11:00 AM Transportation at D/C:Other Discharge Delay Reason: Follow-Up Date:03/06/2019 11:00 AM Discharge Slot: Final Diagnosis:PE, DVT Placement Information Referral Type:Rehabilitation Hospital Referral ID:[id number] Provider Name:[facility] Inpatient Rehab Address 1:[address] Phone Number: Address 2: Fax Number: City:[place] Selection Factors: State:[place] Patient Contact Information Contact Name:JUANA Relationship: Address:[address] City:[place] Alternate Phone: State/Zip Code:[place] [address] Email: Financial Information Financial Class:Medicare Primary Plan Desc:MEDICARE INPATIENT Primary Plan Number:[id number] Secondary Plan Desc:[employer]/MDR SUPPLEMENT Secondary Plan Number:[id number] Assessment Information LACE LACE Acuity / Level of Answers: Yes Care: Did the patient have an inpatient admission? Comorbidities - select Answers: Coronary Artery Disease all that apply Diabetes (uncontrolled or controlled) Moderate or severe liver or renal disease Other Notes: HTN; PE # of Emergency department Answers: 5-8 visits in the last 6 months Social determinants Answers: Mental health diagnosis (anxiety, depression, pers onality disorders, etc.) Score: 18 Date Signed: 03/03/2019 09:15 AM Electronically Signed By:Hetal Alva [facility] CM Progress Note CM Note CM Note Notes: CM discussed case with Dr. Umanzor, patient was admitted from [facility] inpatient rehab after a [facility] inpatient stay for subacute subarachnoid hemorrhage. Patient experienced increasing LE edema and mild tachycardia during Inpatient rehab stay, venous doppler of LE and CTA chest were significant for left popliteal DVT and bilateral subsegmental PEs. Patient to receive consult with Hematology and PICC ordered. CM to follow. D/C plan: TBD vs. possible return to Inpatient Rehab Date Signed: 03/03/2019 04:21 PM Electronically Signed By:Cintia Barr [facility] CM Progress Note CM Note CM Note Notes: CM spoke with pt and confirmed that she is still planning to return to inpatient rehab if there is a bed available. Hospitalist confirmed that pt should be ready for dc on Wednesday. CM left a message for [facility] admissions inquiring if there is a bed available on Wednesday. CM to follow. D/C Plan: [facility] Inpt Rehab Date Signed: 03/05/2019 04:01 PM Electronically Signed By:Barbra Narvaez RN [facility] CM Progress Note CM Note CM Note Notes: CM spoke with [facility] In[facility] Re[facility] and pt now needs therapy evals today since she has been inpatient >3 midnights. PT and OT ordered today. [facility] has a bed available tomorrow if pt qualifies with evals. CM to follow. D/C Plan: [facility] Inpt Rehab Date Signed: 03/06/2019 12:15 PM Electronically Signed By:Barbra Yoon. RN Case Management Discharge Plan Note Case Management Discharge Discharge Order Complete? Answers: Yes Patient to Obtain Answers: Other Notes: [facility] Inpt Rehab Medications Transportation Arranged Answers: Other Notes: RN and WC Transport will Pick (Date 03/07/2019 12:00 AM & Time) Faxed Final Orders Answers: Yes Agency/Facility Transfer Answers: Yes Report Printed & Faxed to Receiving Agency Family Notified Answers: Yes Notes: CM inquired and pt call ed Discharge Comments Notes: Pt to discharge to [facility] inpatient rehab in this same unit. No further CM needs noted at this time. Date Signed: 03/07/2019 03:13 PM Electronically Signed By:Barbra Yoon. RN Intervention Information Intervention Type:*IM-Signed Date of Service:03/06/2019 10:13 AM Patient Type:Inpatient Staff Member:Hetal Alva Hours: Discipline: Severity: Comment:
== END 2019-03-07 15:08 | DRG 176 ==
LOC: F3E 21:53
PROVIDERS: ADMIT Family Medicine; ATTEND Internal Medicine
PROC: 02HV33Z Insertion of Infusion Device into Superior Vena Cava, Percutaneous Approach (ICD-10-PCS; principal; 2019-03-03)
DX: I26.99 Other pulmonary embolism without acute cor pulmonale (principal); I82.4Z2 Acute embolism and thrombosis of unspecified deep veins of left distal lower extremity; D35.2 Benign neoplasm of pituitary gland; I25.10 Atherosclerotic heart disease of native coronary artery without angina pectoris; D81.9 Combined immunodeficiency, unspecified; I10 Essential (primary) hypertension; E11.22 Type 2 diabetes mellitus with diabetic chronic kidney disease; N12 Tubulo-interstitial nephritis, not specified as acute or chronic; N18.3 Chronic kidney disease, stage 3 (moderate); D64.9 Anemia, unspecified; G47.33 Obstructive sleep apnea (adult) (pediatric); E03.9 Hypothyroidism, unspecified; F39 Unspecified mood [affective] disorder; Z87.440 Personal history of urinary (tract) infections; Z86.73 Personal history of transient ischemic attack (TIA), and cerebral infarction without residual deficits; Z95.5 Presence of coronary angioplasty implant and graft; Z86.711 Personal history of pulmonary embolism; Z79.01 Long term (current) use of anticoagulants
CPT/HCPCS: 85520-90; 86147-90; 97162-GP; 97166-GO; C1751; J1644; J1650; J7512

== ENCOUNTER 2019-03-07 15:04 | Inpatient (IN) | payer OTHER, MEDICARE | END 2019-03-17 11:30 | LOC: F3E 15:04 | PROC: F0636ZZ Communicative/Cognitive Integration Skills Treatment of Neurological System - Whole Body (ICD-10-PCS; principal; ~2019-03-07) | DX: Z51.89 Encounter for other specified aftercare (principal); I69.054 Hemiplegia and hemiparesis following nontraumatic subarachnoid hemorrhage affecting left non-dominant side; I69.010 Attention and concentration deficit following nontraumatic subarachnoid hemorrhage; I69.014 Frontal lobe and executive function deficit following nontraumatic subarachnoid hemorrhage; R53.1 Weakness; Z86.711 Personal history of pulmonary embolism; Z79.01 Long term (current) use of anticoagulants; I25.10 Atherosclerotic heart disease of native coronary artery without angina pectoris; Z95.5 Presence of coronary angioplasty implant and graft; Z79.02 Long term (current) use of antithrombotics/antiplatelets; N11.9 Chronic tubulo-interstitial nephritis, unspecified; Z79.52 Long term (current) use of systemic steroids; D64.9 Anemia, unspecified; R82.71 Bacteriuria; B96.1 Klebsiella pneumoniae [K. pneumoniae] as the cause of diseases classified elsewhere; D83.9 Common variable immunodeficiency, unspecified; F32.9 Major depressive disorder, single episode, unspecified; F31.9 Bipolar disorder, unspecified; M79.7 Fibromyalgia; G47.33 Obstructive sleep apnea (adult) (pediatric); E03.9 Hypothyroidism, unspecified ==